=== PATIENT | female | born 1985 | race Caucasian/White ===

== ENCOUNTER 2016-12-04 16:32 | Inpatient (IN) ==
[2016-12-04] MEDS ORDERED: Naloxone 0.4 MG/ML INJ IVP PRN (18:41)
[2016-12-04] MEDS ORDERED: Vancomycin 750 MG in D5% in Water 250 ML IVPB SCH (19:00)
--- NOTE | 2016-12-04 19:03 | Event Note ---
Date of Encounter: 12/04/16 Time of Encounter: 18:57 I examined this patient and my medical decision-making was reviewed with the Resident Physician on 12/04/16. I agree with the documented findings, disposition and treatment plan as described except to the extent set forth below. 31 y/o female with hx of Crohns disease s/p bowel resection on chronic TPN as outpatient brought in as direct admit for intractable nausea and vomiting and abdominal pain. Has been seen in ED 3 times this week including this AM. Blood cx on 11/30 is growing gram positive cocci - not identified yet. Continued to have symptoms after discharge from ED and is now admitted. PMHx, PSHx, Soc hx, Fam hx, meds and allergies reviewed. Exam Alert. Pleasant. Mucus membranes dry Heart regular - slightly tachy Lungs clear Abd soft and diffusely tender. No rebound, rigidity, guarding No edema I/P 1. Intractable nausea and vomiting with abd pain - Phenergan, Benadryl and Dilaudid ordered Fluids for maintenance. 2. Positive blood culture - repeat cx drawn this AM. Will start Vanc pending results 3. Chronic TPN 4. Crohns disease on chronic immunosuppression. Pt admitted inpatient. Due to her chronic illness, immunosuppression and positive blood culture she is at high risk for further infectious complications and decompensation.
[2016-12-04] MEDS: 0.9 % Sodium Chloride 1,000 ML IVC SCH (19:07)
[2016-12-04] MEDS: *HR* HYDROmorphone 2 MG/ML SYRINGE IVP PRN ×3 (19:08→23:22)
--- NOTE | 2016-12-04 19:13 | Internal Med History&Physical ---
<Jose David Hebert - Last Filed: 12/05/16 16:03> Date of Encounter: 12/05/16 Time of Encounter: 19:11 Assessment and Plan (1) Positive blood cultures Current visit: Yes Status: Acute Ms. Baltazar had 1 of 2 blood cultures positive for gram-positive cocci. Cocci were slow growing and had to be sent out to a reference lab for further evaluation. She does have a history of MRSA-positive bacteremia and required IV vancomycin in the past. She currently has a access port for severe Crohn's disease for which she receives therapy once a month. She has had fevers, worsening abdominal pain, increased nausea and vomiting. With her current infusions it puts her at increased risk for bacteremia. Plan: -Admitted to inpatient - Vancomycin started. - Blood cultures were collected in the emergency department this morning, prior to any antibiotic initiation. - Plan to discuss blood culture results with infectious disease on Tuesday. (2) Abdominal pain Current visit: Yes Status: Acute Ms. Baltazar has pretty significant abdominal pain is tender to palpation and light touch. She is on a concoction of Benadryl and promethazine at home. She recently followed up in the outpatient clinic and was prescribed fentanyl patches but had no improvement with patches and return to oral Roxicodone medication. She says that she does vomit up her medications occasionally. Pain severity is a 9-10 out of 10. Plan: - Continue current home medications. - Dilaudid for severe pain every 2 hours when necessary. Qualifiers: Qualified Code(s): R10.84 - Generalized abdominal pain (3) Crohns disease Current visit: No Status: Chronic Known history for Crohn's disease which she has a port and receives Entyvio infusions once a month. She has had poor oral intake and does receive TPN through her port. She follows up with Dr. Mackey from GI. Plan: - Continue pain control during inpatient stay - Monitor by mouth intake and potential restarting TPN during inpatient stay. - Plan to talk to GI on Tuesday. Qualifiers: Gastrointestinal tract location: small and large intestine Qualified Code(s ): K50.819 - Crohn's disease of both small and large intestine with unspecified complications (4) Nausea & vomiting Current visit: No Status: Resolved Symptoms secondary to Crohn's disease. Qualifiers: Vomiting type: unspecified Qualified Code(s): R11.2 - Nausea with vomiting , unspecified Internal Medicine - H&P: HPI Chief complaint: Sick Admitted From: Home Plans for Post Hospital Care: Home History of present illness: Ms. Baltazar is a 31 year old female with known Crohn's disease, chronic abdominal pain secondary to crohns, history of GI bleeding, kidney stones, renal disease, seizures, hypothyroidism was directly admitted to the inpatient unit on 12/04/2016, with positive blood culture for gram-positive cocci in an immunocompromised patient, worsening abdominal pain and cyclical fevers. Ms. Baltazar had been to the emergency department twice in the last week. On November 29 she was sent to the emergency department with cyclical fevers , neck pain, continued nausea vomiting and worsening abdominal pain for concern of meningitis. She did not receive a spinal tap at that time but did have blood cultures drawn for which she had 1 of 2 resulting with a gram-positive cocci. She was called by the emergency department on Tuesday evening and was told to return to the emergency department for further evaluation. At that time she had continuing worsening of her abdominal pain, complaints of frequent tachycardic episodes, recurrence of fevers. She said she went to the emergency department on Tuesday morning and was evaluated but not admitted or started on antibiotics. She denies any pain swelling or erythema at her port site or any abnormal discharge. Her pain did not improve, she felt generally weak and as if her symptoms were worsening. She contacted her primary care physician who directly admitted her to the inpatient unit. She continues to complain of left- sided neck pain that feels deep and worse with neck flexion. She denies any photophobia, blurry vision, loss of sensation, loss of muscle strength, loss of sensation. She rates the abdominal pain as a 9-10 out of 10. She continues to have frequent bowel movements that her mucus-like in nature and without blood. She has had poor oral intake for several months but complains recently she has vomited up almost everything she tries to take orally including pain medications. She does receive TPN through her port. Past Med Surg Social Fam HX - Past Medical History Medical history: arthritis, asthma, GERD, GI bleed, kidney stones, renal disease , seizures, thyroid disease Psychiatric history: no psych history - Past Surgical History Surgical History: appendectomy, cholecystectomy, colectomy, other - Social History Smoking Status: Never smoker Smokeless Tobacco Status: No Alcohol use: none Drug use: none - Family History Grandmother Living Status: Hx Family Cardiac Disorders: Yes Hx Family Respiratory Disorders: Yes Internal Medicine - H&P: Meds Levothyroxine [Synthroid] 75 mcg PO DAILY 08/04/15 [History] Mesalamine [Lialda] 2.4 gm PO DAILY 09/30/15 [History] Promethazine [Phenergan] 25 mg PO Q4-6H PRN 03/12/16 [History] Ondansetron ODT [Zofran ODT] 4 mg SL Q6HR PRN 08/11/16 [History] Albuterol Sulfate [Albuterol Inhaler] 2 puff IH Q6H PRN 09/28/16 [History] OxyCODONE Immed Rel [Roxicodone 15 MG] 15 mg PO Q4H PRN #30 tablet 10/30/16 [Rx] Sennosides/Docusate Sodium [Senna Plus] 2 each PO BID PRN #20 tablet 10/30/16 [ Rx] Potassium Chloride 10 meq PO BIDWM #10 tab.er.prt 11/29/16 [Rx] Pnv95/Ferrous Fumarate/FA [Gnp Vitamins Tablet] 1 each PO DAILY [History] Promethazine HCl [Phenergan] 25 mg IJ BID PRN 12/05/16 [History] Vedolizumab [Entyvio (For Outpatient Infusion)] 300 mg IV Q8W 12/05/16 [History] Allergies Iodinated Contrast Media - Oral and [Iodinated Contrast Media - IV Dye] Allergy (Verified 12/05/16 14:45) Difficulty Breathing ketorolac [From Toradol] Allergy (Verified 12/05/16 14:45) Difficulty Breathing metoprolol [From Lopressor] Allergy (Verified 12/05/16 14:45) Difficulty Breathing morphine Allergy (Verified 12/05/16 14:45) Difficulty Breathing adalimumab [From Humira] Adverse Reaction (Verified 12/05/16 14:45) Seizure All Systems PM: A 10-system review of systems was performed and is negative for pertinent findings except as documented above in the HPI. - Constitutional Constitutional: as per HPI, anorexia, fatigue, fever(s) - EENT Eyes: no blurry vision, no change in vision, no diplopia, no photophobia, no spots in vision Ears: no decreased hearing Nose, mouth and throat: no dental pain, no mouth pain, no sore throat, no throat swelling, no tongue swelling - Cardiovascular Cardiovascular ROS IM: palpitations, no chest pain, no dyspnea Additional comments: Fast rate - Respiratory Respiratory: no dyspnea, no wheezing, no pain on inspiration, no chest congestion - Gastrointestinal Gastrointestinal: abdominal pain, cramping, diarrhea, loose stools, nausea, vomiting, no hematochezia, no melena - Musculoskeletal Musculoskeletal ROS IM: no numbness, no stiffness - Neurological Neurological ROS: no abnormal hearing, no convulsions, no dizziness, no numbness , no paresthesias, no other visual disturbances - Constitutional Vitals: Temp Pulse Resp BP Pulse Ox 98.3 F 99 16 117/91 99 12/04/16 18:41 12/04/16 18:41 12/04/16 18:41 12/04/16 18:41 12/04/16 18:41 Internal Med - H&P Results - Labs CBC & Chem 7: 12/04/16 19:19 12/04/16 19:19 <Saurav Siddiqui - Last Filed: 12/05/16 18:20> Date of Encounter: 12/04/16 Internal Medicine - H&P: HPI History of present illness: Ms. Baltazar is a 31 year old female All Systems PM: A 10-system review of systems was performed and is negative for pertinent findings except as documented above in the HPI. - Constitutional Vitals: Temp Pulse Resp BP Pulse Ox 97.8 F 99 16 115/69 98 12/05/16 07:00 12/05/16 15:00 12/05/16 15:00 12/05/16 15:00 12/05/16 11:00 Internal Med - H&P Results - Labs CBC & Chem 7: 12/05/16 16:35 12/05/16 16:35 Labs: Short CBC 12/04/16 12/05/16 Range/Units 19:19 16:35 WBC 5.1 4.2 L (4.3-11.1) K/mcL Hgb 10.7 L 10.8 L (11.5-15.4) g/dL Hct 33.1 L 33.8 L (35.3-44.9) % Plt Count 274 214 (140-400) K/mcL Neutrophils # 3.1 2.9 (1.6-8.9) K/mcL BMP 12/04/16 12/05/16 19:19 16:35 Sodium 139 137 Potassium 3.6 3.9 Chloride 107 107 Carbon Dioxide 22 21 BUN 13 9 Creatinine 0.77 0.66 Glucose 88 114 H Calcium 9.3 9.2 Liver Function 12/04/16 12/05/16 Range/Units 19:19 16:35 Total Bilirubin 0.4 0.3 (0.2-1.2) mg/dL AST 12 13 (5-34) Units/L ALT 11 10 (0-55) Units/L Alkaline Phosphatase 54 49 (38-126) Units/L Albumin 3.6 3.3 L (3.5-5.0) g/dL Urine 12/05/16 Range/Units 03:00 Urine Color Yellow (Yellow) Urine Clarity Clear (Clear) Urine pH 6.0 (5.0-8.0) pH Units Ur Specific [place] 1.020 (1.010-1.025) Urine Protein Negative (Neg-Trace) mg/dL Urine Glucose (UA) Normal (Normal) mg/dL - Attending Attestation I examined this patient and my medical decision-making was reviewed with the Resident Physician on 12/04/16. I agree with the documented findings, disposition and treatment plan as described except to the extent set forth below. Please see event note of today (12/04/16) for attestation.
[2016-12-04 19:33] LABS: Basophils % 0.4 %; Eosinophils % 0.8 %; Hematocrit 33.1 % (35.3-44.9); Hemoglobin 10.7 g/dL (11.5-15.4); Immature Granulocytes % 0.2 % (0-4); Lymphocytes # 1.5 K/mcL (0.6-4.6); Lymphocytes % 29.4 %; Mean Corpuscular HGB Conc 32.3 g/dL (31.6-35.5); Mean Corpuscular Hemoglobin 26.8 pg (28.0-33.3); Mean Corpuscular Volume 82.8 fL (83.0-100.0); Mean Platelet Volume 10.5 fL (9.4-12.4); Monocytes # 0.5 K/mcL (0.0-1.3); Monocytes % 8.9 %; Neutrophils # 3.1 K/mcL (1.6-8.9); Platelet Count 274 K/mcL (140-400); Red Cell Distribution Width 17.6 % (11.5-14.5); Segmented Neutrophils % 60.3 %
[2016-12-04 19:38] LABS: INR 1.1; Prothrombin Time 11.6 Seconds (9.4-12.1)
[2016-12-04 19:44] LABS: Activated Partial Thrombo Time 66.1 Seconds (26.0-36.0)
[2016-12-04 19:46] LABS: Alanine Aminotransferase 11 Units/L (0-55); Albumin 3.6 g/dL (3.5-5.0); Albumin/Globulin Ratio 1.1 (1.1-2.2); Alkaline Phosphatase 54 Units/L (38-126); Aspartate Amino Transferase 12 Units/L (5-34); BUN/Creatinine Ratio 17 (6-26); Bilirubin,Total 0.4 mg/dL (0.2-1.2); Blood Urea Nitrogen 13 mg/dL (7-20); Calcium 9.3 mg/dL (8.6-10.8); Carbon Dioxide 22 mEq/L (19-29); Chloride 107 mEq/L (98-109); Globulin 3.3 g/dL (2.4-3.5); Glucose 88 mg/dL (70-99); Magnesium 1.7 mg/dL (1.6-2.6); Osmolality,Calculated 288 (280-300); Phosphorous 4.2 mg/dL (2.3-4.7); Potassium 3.6 mEq/L (3.5-4.5); Sodium 139 mEq/L (136-145); Total Protein 6.9 g/dL (6.0-8.3); eGFR For African Americans > 60 (> 60); eGFR For Non-African Americans > 60 (> 60)
[2016-12-04] MEDS: Promethazine 12.5 MG in 0.9 % Sodium Chloride 50 ML IVPB SCH ×2 (20:22→23:30)
[2016-12-04] MEDS: Vancomycin 750 MG in D5% in Water 250 ML IVPB SCH (20:36)
[2016-12-04] MEDS ORDERED: *HR* Promethazine 25 MG/ML VIAL IV PRN (21:12)
[2016-12-04] MEDS ORDERED: *HR* Promethazine 25 MG/ML VIAL IV SCH (21:30)
[2016-12-05] MEDS: *HR* HYDROmorphone 2 MG/ML SYRINGE IVP PRN ×9 (01:57→22:39)
[2016-12-05 03:09] LABS: Bilirubin,Urine Negative (Negative); Blood,Urine Negative (Negative); Clarity,Urine Clear (Clear); Color,Urine Yellow (Yellow); Glucose,Urine (UA) Normal (Normal); Ketones,Urine Negative (Negative); Leukocyte Esterase,Urine Negative (Negative); Nitrite,Urine Negative (Negative); Protein,Urine Negative (Neg-Trace); Urobilinogen,Urine Normal (Normal)
[2016-12-05] MEDS: Promethazine 12.5 MG in 0.9 % Sodium Chloride 50 ML IVPB SCH ×5 (04:18→20:27)
[2016-12-05] MEDS: Vancomycin 750 MG in D5% in Water 250 ML IVPB SCH (08:21)
[2016-12-05] MEDS ORDERED: Aminoglycoside Consult 1 EACH MC ONE (08:45)
--- NOTE | 2016-12-05 08:57 | Internal Med Progress Note ---
<Jose David Hebert - Last Filed: 12/05/16 16:30> Date of Encounter: 12/05/16 Time of Encounter: 08:57 - Assessment and plan (1) Positive blood cultures Current Visit: Yes Status: Acute Assessment and plan: Ms. Baltazar had 1 of 2 blood cultures positive for gram-positive cocci. Cocci were slow growing and had to be sent out to a reference lab for further evaluation. She does have a history of MRSA-positive bacteremia and required IV vancomycin in the past. She currently has a access port for severe Crohn's disease for which she receives therapy once a month. She has had fevers, worsening abdominal pain, increased nausea and vomiting. With her current infusions it puts her at increased risk for bacteremia. Plan: -Vancomycin discontinued to Lacy rash. Last time patient was admitted she had a diffuse rash suspicious for medication rash. - Start Ancef every 8 hours - Plan to discuss blood culture results with infectious disease on Tuesday. (2) Abdominal pain Current Visit: Yes Status: Acute Assessment and plan: Ms. Baltazar has pretty significant abdominal pain is tender to palpation and light touch. She is on a concoction of Benadryl and promethazine at home. She recently followed up in the outpatient clinic and was prescribed fentanyl patches but had no improvement with patches and return to oral Roxicodone medication. She says that she does vomit up her medications occasionally. 12/05/2016: Pain is improved but not resolved, patient is tolerating current regimen. Plan: - Continue current home medications. - Dilaudid for severe pain every 2 hours when necessary. - Addition of GI cocktail Qualifiers: Qualified Code(s): R10.84 - Generalized abdominal pain (3) Crohns disease Current Visit: No Status: Chronic Assessment and plan: Known history for Crohn's disease which she has a port and receives Entyvio infusions once a month. She has had poor oral intake and does receive TPN through her port. She follows up with Dr. Mackey from GI. Plan: - Continue pain control during inpatient stay - Monitor by mouth intake and potential restarting TPN during inpatient stay. - Plan to talk to GI on Tuesday. Qualifiers: Gastrointestinal tract location: small and large intestine Qualified Code(s ): K50.819 - Crohn's disease of both small and large intestine with unspecified complications (4) Nausea & vomiting Current Visit: No Status: Resolved Assessment and plan: Continues to have these symptoms. Worse with by mouth intake. Qualifiers: Vomiting type: unspecified Qualified Code(s): R11.2 - Nausea with vomiting , unspecified (5) Thrush Current Visit: Yes Status: Acute Assessment and plan: Oral thrush identified on examination. She also complains of sore throat. PlanL - Nystatin Rinse and swallow. (6) Tachycardia Current Visit: Yes Status: Acute Assessment and plan: Mrs. Baltazar has had an elevated heart rate roughly around 100 216 is normal sinus rhythm since admission. She denies any changes to her anxiety level. She does have a history of hypothyroidism and takes Synthroid and denies having her TSH checked recently. Plan: - Check TSH -If TSH is abnormal we will check free T4, T3 - Continue ekg monitor. - Subjective Interval history: Mrs. Baltazar has been seen and evaluated patient bedside this morning. She is alert awake oriented in no acute distress and interactive. She complains of a lacy rash that is concerning for drug rash. The rash is not not paretic, and she denies throat swelling, or trouble swelling. She continues to have abdominal pain but says the pain is improved today. She has had dry heaving episodes today without vomiting. She continues to have diarrhea that is mucous filled without blood. She denies any fevers, chills, change in vision or change in mental status. She says that her heart has been racing occasionally at rest. She denies anxiety, or change in pain status. - Constitutional Vitals: Temp Pulse Resp BP Pulse Ox 97.8 F 83 16 98/63 98 12/05/16 07:00 12/05/16 07:00 12/05/16 07:00 12/05/16 07:00 12/05/16 07:00 General appearance: Present: cooperative, A&O X 3, pleasant, no acute distress - Head Head exam: Present: atraumatic, normocephalic - Eye Eye exam: Present: PERRL, conjuntiva pink, sclera anicteric Pupils: Present: PERRL - Neck Neck exam general surgery: Present: supple, trachea midline. Absent: lymphadenopathy - Respiratory Respiratory exam: Present: CTAB. Absent: accessory muscle use, rales, rhonchi, wheezes - Cardiovascular Cardiovascular exam: Present: tachycardia - GI/Abdominal GI/Abdominal exam: Present: normal bowel sounds, soft, tenderness. Absent: distended Additional comments: diffuse tenderness to palpation. - Extremities Exam Extremities exam: Present: warm, radial pulses palpable and symetrical. Absent : calf tenderness, cyanotic, pedal edema - Neurological Exam Neurological exam: Present: alert, CN II-XII intact, oriented X3, no focal deficits. Absent: pronater drift, facial droop, speech deficit - Psychiatric Psychiatric exam: Present: normal affect, normal mood - Skin Skin exam: Present: dry, intact, warm Internal Medicine: Result - Labs CBC & Chem 7: 12/04/16 19:19 12/04/16 19:19 Labs: Short CBC 12/04/16 Range/Units 19:19 WBC 5.1 (4.3-11.1) K/mcL Hgb 10.7 L (11.5-15.4) g/dL Hct 33.1 L (35.3-44.9) % Plt Count 274 (140-400) K/mcL Neutrophils # 3.1 (1.6-8.9) K/mcL BMP 12/04/16 19:19 Sodium 139 Potassium 3.6 Chloride 107 Carbon Dioxide 22 BUN 13 Creatinine 0.77 Glucose 88 Calcium 9.3 Liver Function 12/04/16 Range/Units 19:19 Total Bilirubin 0.4 (0.2-1.2) mg/dL AST 12 (5-34) Units/L ALT 11 (0-55) Units/L Alkaline Phosphatase 54 (38-126) Units/L Albumin 3.6 (3.5-5.0) g/dL Urine 12/05/16 Range/Units 03:00 Urine Color Yellow (Yellow) Urine Clarity Clear (Clear) Urine pH 6.0 (5.0-8.0) pH Units Ur Specific [place] 1.020 (1.010-1.025) Urine Protein Negative (Neg-Trace) mg/dL Urine Glucose (UA) Normal (Normal) mg/dL - ABG Interpretation ABG results: PT/INR, D-dimer PT 11.6 Seconds (9.4-12.1) 12/04/16 19:19 Consult Discharge Plan - Plan Referrals: Michael Gibson DO [Primary Care Provider] - <Saurav Siddiqui - Last Filed: 12/05/16 19:02> Date of Encounter: 12/05/16 - Assessment and plan (1) Crohn disease Current Visit: Yes Status: Acute Assessment and plan: Intractable pain with n/v. On pain control GI consult in AM. Qualifiers: Gastrointestinal tract location: small and large intestine Digestive disease complication type: other complication Qualified Code(s): K50.818 - Crohn's disease of both small and large intestine with other complication (2) Abdominal pain Current Visit: Yes Status: Acute Qualifiers: Abdominal location: generalized Qualified Code(s): R10.84 - Generalized abdominal pain (3) Positive blood cultures Current Visit: Yes Status: Acute (4) Thrush Current Visit: Yes Status: Acute (5) Nausea & vomiting Current Visit: No Status: Acute Qualifiers: Vomiting type: unspecified Vomiting Intractability: non-intractable Qualified Code(s): R11.2 - Nausea with vomiting, unspecified (6) Sinus tachycardia Current Visit: Yes Status: Acute - Constitutional Vitals: Temp Pulse Resp BP Pulse Ox 97.8 F 99 16 115/69 98 12/05/16 07:00 12/05/16 15:00 12/05/16 15:00 12/05/16 15:00 12/05/16 11:00 Internal Medicine: Result - Labs CBC & Chem 7: 12/05/16 16:35 12/05/16 16:35 Labs: Short CBC 12/04/16 12/05/16 Range/Units 19:19 16:35 WBC 5.1 4.2 L (4.3-11.1) K/mcL Hgb 10.7 L 10.8 L (11.5-15.4) g/dL Hct 33.1 L 33.8 L (35.3-44.9) % Plt Count 274 214 (140-400) K/mcL Neutrophils # 3.1 2.9 (1.6-8.9) K/mcL BMP 12/04/16 12/05/16 19:19 16:35 Sodium 139 137 Potassium 3.6 3.9 Chloride 107 107 Carbon Dioxide 22 21 BUN 13 9 Creatinine 0.77 0.66 Glucose 88 114 H Calcium 9.3 9.2 Liver Function 12/04/16 12/05/16 Range/Units 19:19 16:35 Total Bilirubin 0.4 0.3 (0.2-1.2) mg/dL AST 12 13 (5-34) Units/L ALT 11 10 (0-55) Units/L Alkaline Phosphatase 54 49 (38-126) Units/L Albumin 3.6 3.3 L (3.5-5.0) g/dL Urine 12/05/16 Range/Units 03:00 Urine Color Yellow (Yellow) Urine Clarity Clear (Clear) Urine pH 6.0 (5.0-8.0) pH Units Ur Specific [place] 1.020 (1.010-1.025) Urine Protein Negative (Neg-Trace) mg/dL Urine Glucose (UA) Normal (Normal) mg/dL - ABG Interpretation ABG results: PT/INR, D-dimer PT 11.6 Seconds (9.4-12.1) 12/04/16 19:19 - Attending Attestation I examined this patient and my medical decision-making was reviewed with the Resident Physician on 12/05/16. I agree with the documented findings, disposition and treatment plan as described except to the extent set forth below. Ms. Baltazar is currently admitted for intractable nausea, vomiting and abd pain. Positive blood culture still pending. She remains moderate risk due to the potential for continued infection while immunosuppressed. Ms. Baltazar is continuing to have pain and nausea. She is tolerating some PO intake. No fever or new symptoms. No cough. Blood cx still pending though repeat are negative thus far Exam Alert. Comfortable Heart tachy Lungs clear Abd tender I/P 1. Acute Crohns 2. Intractable n/v 3. Abd pain 4. Positive blood cx 5. Sinus tachycardia Further diagnoses and plan as above.
[2016-12-05] MEDS: 0.9 % Sodium Chloride 1,000 ML IVC SCH (09:06)
[2016-12-05] MEDS ORDERED: GI Cocktail 40 ML EACH PO ONE (15:56)
[2016-12-05 16:43] LABS: Basophils % 0.2 %; Eosinophils # 0.2 K/mcL (0.0-0.6); Eosinophils % 5.2 %; Hematocrit 33.8 % (35.3-44.9); Hemoglobin 10.8 g/dL (11.5-15.4); Immature Granulocytes % 0.2 % (0-4); Immature Platelets 2.8 % (1.1-6.1); Lymphocytes # 0.7 K/mcL (0.6-4.6); Lymphocytes % 17.4 %; Mean Corpuscular Hemoglobin 26.9 pg (28.0-33.3); Mean Corpuscular Volume 84.3 fL (83.0-100.0); Mean Platelet Volume 10.4 fL (9.4-12.4); Monocytes # 0.4 K/mcL (0.0-1.3); Monocytes % 8.3 %; Neutrophils # 2.9 K/mcL (1.6-8.9); Platelet Count 214 K/mcL (140-400); Red Blood Count 4.01 M/mcL (3.82-4.97); Red Cell Distribution Width 17.2 % (11.5-14.5); Segmented Neutrophils % 68.7 %
[2016-12-05 16:56] LABS: Alanine Aminotransferase 10 Units/L (0-55); Albumin 3.3 g/dL (3.5-5.0); Albumin/Globulin Ratio 1.1 (1.1-2.2); Alkaline Phosphatase 49 Units/L (38-126); Aspartate Amino Transferase 13 Units/L (5-34); BUN/Creatinine Ratio 14 (6-26); Bilirubin,Total 0.3 mg/dL (0.2-1.2); Blood Urea Nitrogen 9 mg/dL (7-20); Calcium 9.2 mg/dL (8.6-10.8); Carbon Dioxide 21 mEq/L (19-29); Chloride 107 mEq/L (98-109); Glucose 114 mg/dL (70-99); Osmolality,Calculated 284 (280-300); Potassium 3.9 mEq/L (3.5-4.5); Sodium 137 mEq/L (136-145); Total Protein 6.3 g/dL (6.0-8.3); eGFR For African Americans > 60 (> 60); eGFR For Non-African Americans > 60 (> 60)
[2016-12-05] MEDS: ceFAZolin 1,000 MG in D5% in Water (Mini-Bag+) 100 ML IVPB SCH (17:47)
[2016-12-05] MEDS: Nystatin SUSP 5 ML UD.LIQ PO SCH ×2 (17:50→20:26)
[2016-12-06] MEDS: Promethazine 12.5 MG in 0.9 % Sodium Chloride 50 ML IVPB SCH ×7 (00:39→23:53)
[2016-12-06] MEDS: 0.9 % Sodium Chloride 1,000 ML IVC SCH ×2 (00:43→12:24)
[2016-12-06] MEDS: *HR* HYDROmorphone 2 MG/ML SYRINGE IVP PRN ×11 (00:45→23:53)
[2016-12-06] MEDS ORDERED: *HR* HYDROmorphone (PF) 1 MG/ML SYRINGE ONE (05:16)
[2016-12-06] MEDS: ceFAZolin 1,000 MG in D5% in Water (Mini-Bag+) 100 ML IVPB SCH ×2 (05:33→12:24)
[2016-12-06 05:58] LABS: Basophils % 0.2 %; Eosinophils # 0.2 K/mcL (0.0-0.6); Eosinophils % 5.1 %; Hematocrit 31.3 % (35.3-44.9); Hemoglobin 9.8 g/dL (11.5-15.4); Immature Granulocytes % 0.2 % (0-4); Lymphocytes # 0.9 K/mcL (0.6-4.6); Lymphocytes % 21.8 %; Mean Corpuscular HGB Conc 31.3 g/dL (31.6-35.5); Mean Corpuscular Hemoglobin 26.5 pg (28.0-33.3); Mean Corpuscular Volume 84.6 fL (83.0-100.0); Mean Platelet Volume 10.5 fL (9.4-12.4); Monocytes # 0.5 K/mcL (0.0-1.3); Monocytes % 11.4 %; Neutrophils # 2.6 K/mcL (1.6-8.9); Platelet Count 222 K/mcL (140-400); Red Cell Distribution Width 17.1 % (11.5-14.5); Segmented Neutrophils % 61.3 %
[2016-12-06 06:08] LABS: Alanine Aminotransferase 10 Units/L (0-55); Albumin 3.1 g/dL (3.5-5.0); Albumin/Globulin Ratio 1.1 (1.1-2.2); Alkaline Phosphatase 46 Units/L (38-126); Aspartate Amino Transferase 11 Units/L (5-34); BUN/Creatinine Ratio 16 (6-26); Bilirubin,Total 0.2 mg/dL (0.2-1.2); Blood Urea Nitrogen 10 mg/dL (7-20); Calcium 9.2 mg/dL (8.6-10.8); Carbon Dioxide 22 mEq/L (19-29); Chloride 107 mEq/L (98-109); Globulin 2.9 g/dL (2.4-3.5); Glucose 99 mg/dL (70-99); Osmolality,Calculated 283 (280-300); Potassium 4.4 mEq/L (3.5-4.5); Sodium 137 mEq/L (136-145); eGFR For African Americans > 60 (> 60); eGFR For Non-African Americans > 60 (> 60)
[2016-12-06] MEDS: Nystatin SUSP 5 ML UD.LIQ PO SCH ×4 (07:58→21:27)
--- NOTE | 2016-12-06 08:46 | Internal Med Progress Note ---
<Soham Albert - Last Filed: 12/06/16 14:43> Date of Encounter: 12/06/16 Time of Encounter: 08:38 - Assessment and plan (1) Positive blood cultures Current Visit: Yes Status: Acute Assessment and plan: Blood culture on 11/29/16 shows Acinetobacter Species from the CVC, but 12/04/16 with the port was negative. Peripheral Blood cultures have been negative. She does have a history of MRSA-positive bacteremia and required IV vancomycin in the past. She currently has a access port for the past 6 months for severe Crohn's disease for which she receives therapy once a month. She has had fevers , worsening abdominal pain, increased nausea and vomiting. With her current infusions it puts her at increased risk for bacteremia. Plan: -Vancomycin discontinued to Lacy rash. Last time patient was admitted she had a diffuse rash suspicious for medication rash. - Switched from Ancef to Merpenem to cover ancinetobacter. -Infectious disease seeing patient at bedside. Will decide if we need to stop abx and draw blood cultures. (2) Abdominal pain Current Visit: Yes Status: Acute Assessment and plan: Ms. Baltazar has pretty significant abdominal pain is tender to palpation and light touch. She is on a concoction of Benadryl and promethazine at home. She recently followed up in the outpatient clinic and was prescribed fentanyl patches but had no improvement with patches and return to oral Roxicodone medication. She says that she does vomit up her medications occasionally. 12/05/2016: Pain is improved but not resolved, patient is tolerating current regimen. Plan: - Continue current home medications. - Dilaudid for severe pain every 2 hours when necessary. - Addition of GI cocktail -Will continue phenergen through IVPB, not a push. Qualifiers: Abdominal location: generalized Qualified Code(s): R10.84 - Generalized abdominal pain (3) Crohn disease Current Visit: Yes Status: Acute Assessment and plan: Known history for Crohn's disease which she has a port and receives Entyvio infusions once a month. She has had poor oral intake and does receive TPN through her port. She follows up with Dr. Mackey from GI. Plan: - Continue pain control during inpatient stay - Monitor by mouth intake and potential restarting TPN during inpatient stay. - Consider consulting GI tomorrow if pain has not resolved. Qualifiers: Gastrointestinal tract location: small and large intestine Digestive disease complication type: other complication Qualified Code(s): K50.818 - Crohn's disease of both small and large intestine with other complication (4) Nausea & vomiting Current Visit: No Status: Acute Assessment and plan: Continues to have symptoms, worse by mouth Qualifiers: Vomiting type: unspecified Vomiting Intractability: non-intractable Qualified Code(s): R11.2 - Nausea with vomiting, unspecified (5) Thrush Current Visit: Yes Status: Acute Assessment and plan: Oral thrush identified on examination. She also complains of sore throat. PlanL - Nystatin Rinse and swallow. - Time Spent With Patient 25 - 35 minutes - Subjective Interval history: Ms. Baltazar has been seen and evaluated at bedside this morning. She is alert , very pleasant, and in no acute distress. She she no longer has a rash after being switched from vancomycin to ancef. She continues to have abdominal pain which she states is approximately the same as yesterday, and bearable. She continues to have episode of dry heaving, and bring up anthing she tries to eat. he states that her diarrhea is unchanged from yesterday: mucous filled and without blood. he denies any fevers, chills, change in vision or change in mental status. - Constitutional Vitals: Temp Pulse Resp BP Pulse Ox 98.8 F 96 16 106/66 99 12/06/16 07:54 12/06/16 07:54 12/06/16 07:54 12/06/16 07:54 12/06/16 08:14 General appearance: Present: cooperative, A&O X 3, pleasant, no acute distress - Head Head exam: Present: atraumatic, normocephalic - Eye Eye exam: Present: PERRL, conjuntiva pink, sclera anicteric Pupils: Present: PERRL - Neck Neck exam general surgery: Present: supple, trachea midline. Absent: lymphadenopathy - Respiratory Respiratory exam: Present: CTAB. Absent: accessory muscle use, rales, rhonchi, wheezes - Cardiovascular Cardiovascular exam: Present: RRR, +S1, +S2. Absent: diastolic murmur, gallop, rubs, systolic murmur - GI/Abdominal GI/Abdominal exam: Present: hypoactive bowel sounds, normal bowel sounds, soft, tenderness (Diffuse tenderness to palpation, worst in RLQ), no peritoneal signs. Absent: distended - Extremities Exam Extremities exam: Present: warm, radial pulses palpable and symetrical. Absent : calf tenderness, cyanotic, pedal edema - Neurological Exam Neurological exam: Present: oriented X3, no focal deficits. Absent: pronater drift, facial droop, speech deficit - Skin Skin exam: Present: dry, intact Internal Medicine: Result - Labs CBC & Chem 7: 12/06/16 05:40 12/06/16 05:40 Labs: Short CBC 12/05/16 12/06/16 Range/Units 16:35 05:40 WBC 4.2 L 4.3 (4.3-11.1) K/mcL Hgb 10.8 L 9.8 L (11.5-15.4) g/dL Hct 33.8 L 31.3 L (35.3-44.9) % Plt Count 214 222 (140-400) K/mcL Neutrophils # 2.9 2.6 (1.6-8.9) K/mcL BMP 12/05/16 12/06/16 16:35 05:40 Sodium 137 137 Potassium 3.9 4.4 Chloride 107 107 Carbon Dioxide 21 22 BUN 9 10 Creatinine 0.66 0.63 Glucose 114 H 99 Calcium 9.2 9.2 Liver Function 12/05/16 12/06/16 Range/Units 16:35 05:40 Total Bilirubin 0.3 0.2 (0.2-1.2) mg/dL AST 13 11 (5-34) Units/L ALT 10 10 (0-55) Units/L Alkaline Phosphatase 49 46 (38-126) Units/L Albumin 3.3 L 3.1 L (3.5-5.0) g/dL - ABG Interpretation ABG results: PT/INR, D-dimer PT 11.6 Seconds (9.4-12.1) 12/04/16 19:19 Consult Discharge Plan - Plan Referrals: Michael Gibson DO [Primary Care Provider] - <Saurav Siddiqui - Last Filed: 12/06/16 19:14> Date of Encounter: 12/06/16 - Assessment and plan (1) Crohn disease Current Visit: Yes Status: Acute Qualifiers: Gastrointestinal tract location: small and large intestine Digestive disease complication type: other complication Qualified Code(s): K50.818 - Crohn's disease of both small and large intestine with other complication (2) Abdominal pain Current Visit: Yes Status: Acute Qualifiers: Abdominal location: generalized Qualified Code(s): R10.84 - Generalized abdominal pain (3) Positive blood cultures Current Visit: Yes Status: Acute (4) Thrush Current Visit: Yes Status: Acute (5) Nausea & vomiting Current Visit: No Status: Acute Qualifiers: Vomiting type: unspecified Vomiting Intractability: non-intractable Qualified Code(s): R11.2 - Nausea with vomiting, unspecified (6) Sinus tachycardia Current Visit: Yes Status: Acute - Constitutional Vitals: Temp Pulse Resp BP Pulse Ox 97.9 F 98 16 114/80 97 12/06/16 15:34 12/06/16 15:34 12/06/16 15:34 12/06/16 15:34 12/06/16 15:34 Internal Medicine: Result - Labs CBC & Chem 7: 12/06/16 05:40 12/06/16 05:40 Labs: Short CBC 12/06/16 Range/Units 05:40 WBC 4.3 (4.3-11.1) K/mcL Hgb 9.8 L (11.5-15.4) g/dL Hct 31.3 L (35.3-44.9) % Plt Count 222 (140-400) K/mcL Neutrophils # 2.6 (1.6-8.9) K/mcL BMP 12/06/16 05:40 Sodium 137 Potassium 4.4 Chloride 107 Carbon Dioxide 22 BUN 10 Creatinine 0.63 Glucose 99 Calcium 9.2 Liver Function 12/06/16 Range/Units 05:40 Total Bilirubin 0.2 (0.2-1.2) mg/dL AST 11 (5-34) Units/L ALT 10 (0-55) Units/L Alkaline Phosphatase 46 (38-126) Units/L Albumin 3.1 L (3.5-5.0) g/dL - ABG Interpretation ABG results: PT/INR, D-dimer PT 11.6 Seconds (9.4-12.1) 12/04/16 19:19 - Attending Attestation I examined this patient and my medical decision-making was reviewed with the Resident Physician on 12/06/16. I agree with the documented findings, disposition and treatment plan as described except to the extent set forth below. Ms. Baltazar is currently admitted for intractable N/V and abd pain as well as positive blood cx. She remains moderate risk due to potential for worsening infectious symptoms Ms. Baltazar is having pain right now. Questioned about having Phenergan IVP - explained given IVPB most places. No new issues. No fever. Exam Alert. Mod distress in bed Heart tachy and reg Lungs no wheeze Continued abd pain I/P 1. Acute exac Crohns 2. Abd pain, n/V 3. blood cx positive - ID consult Further diagnoses and plan as above.
--- NOTE | 2016-12-06 15:33 | Infectious Disease Consult ---
Date of Encounter: 12/06/16 Time of Encounter: 15:31 Assessment and Plan (1) Positive blood cultures Status: Acute Assessment and plan: Positive cultures from the port on 11/29/16: Culture positive for gram-positive cocci (coag-negative staph) Cultures sent for identification at the outside facility and it came back as Acinetobacter johnsonni Repeat cultures on 12/04/16 no growth to date Patient had no signs of infection and the only SIRS criteria was tachycardia Patient is very high risk for complications of antibiotics specially with acute kidney injury in the past and with the Crohn's disease he were about ulcerative colitis and she really has oral thrush. Based on all of this, I do believe that the cultures were contaminated. I recommend stopping all antibiotics and observing for any signs of infection or any SIRS criteria. Get blood cultures 2 from the port and peripheral if patient has a temperature over 100.4 Fahrenheit Otherwise we'll continue to observe off antibiotics and follow up on blood cultures obtained from 12/04/2016 Discussed with the primary team We'll continue to follow (2) Crohn disease Status: Acute Assessment and plan: Diagnosis in 2000 Status post small bowel resection and partial colectomy in 2003 Reaction to Humira - seizure Currently on mesalamine and Entivio Per GI recommendations Qualifiers: Gastrointestinal tract location: small and large intestine Digestive disease complication type: other complication Qualified Code(s): K50.818 - Crohn's disease of both small and large intestine with other complication (3) Thrush Status: Acute Assessment and plan: Nystatin swish and swallow (4) DEBI (acute kidney injury) Status: Acute Assessment and plan: Resolved (5) Dehydration Status: Acute (6) Vancomycin-induced nephrotoxicity Status: Acute Infectious Disease HPI - Data of Consult Patient: known to practice within the last 3 years Consult date: 12/06/16 Requesting Physician: Saurav Siddiqui DO Primary Care Provider: Michael Gibson DO - Consult Narrative Reason for consult: positive blood cultures History of present illness: Ms. Baltazar is a 31 year old female Patient is a 31-year-old woman admitted to [facility] on 12/04/2016 for positive blood cultures from 11/29/2016. We are consulted on 12/06/2016 to make antibiotic recommendations. Patient is a 31-year-old woman who has an extensive past medical history including Crohns disease diagnosed 15 years ago that had had multiple complications including partial colectomy and small bowel resection back in 2003 due to severe Crohns, has been on multiple medications including mesalamine, mercaptopurine, steroids on and off, Humira once but was stopped due to seizure, and most recently she is on Entivio and mesalamine. Patient was admitted on August 19 with dehydration and Crohns exacerbation. At that time they did a blood culture from peripheral and port and peripheral culture was positive for MRSA. The ports cultures remained negative. Patient was treated with vancomycin and discharged home on prolonged course of vancomycin. While vancomycin patient went into acute renal failure and had a very trough over 100. Vancomycin was stopped and kidney function returned to normal. On 29 November of this year patient received a transfusion of entivio and post infusion she had some headache and neck pain and was sent to the emergency department for evaluation. Blood cultures were obtained at that time from the port and she had gram-positive cocci growing. I called and spoke with lab and they said it was a coagulation-negative staph. The specimen was sent to an outside lab for identification through [facility] and it came back as Acinetobacter Johnsonni. Patient was started on meropenem and we were consulted to evaluate the patient and make further recommendation. Since admission patient has been afebrile, had no leukocytosis, had no tachypnea. The only SIRS criteria that she had was tachycardia which appears to be chronic for her. On further questioning patient denies having any fever prior to admission she denies any URI symptoms she denies any chest pain or shortness of breath. She denies any pain around her port. She denies any worsening abdominal pain from her baseline or any worsening diarrhea. Patient denies any new back pain and denies any joint effusion. CC: Saurav Siddiqui, DO Past Med Surg Social Fam HX - Past Medical History Medical history: arthritis, asthma, GERD, GI bleed, kidney stones, renal disease , seizures, thyroid disease Psychiatric history: no psych history - Past Surgical History Surgical History: appendectomy, cholecystectomy, colectomy, other - Social History Smoking Status: Never smoker Smokeless Tobacco Status: No Alcohol use: none Drug use: none - Family History Grandmother Living Status: Hx Family Cardiac Disorders: Yes Hx Family Respiratory Disorders: Yes Infectious Disease-CN:Meds Levothyroxine [Synthroid] 75 mcg PO DAILY 08/04/15 [History] Mesalamine [Lialda] 2.4 gm PO DAILY 09/30/15 [History] Promethazine [Phenergan] 25 mg PO Q4-6H PRN 03/12/16 [History] Ondansetron ODT [Zofran ODT] 4 mg SL Q6HR PRN 08/11/16 [History] Albuterol Sulfate [Albuterol Inhaler] 2 puff IH Q6H PRN 09/28/16 [History] OxyCODONE Immed Rel [Roxicodone 15 MG] 15 mg PO Q4H PRN #30 tablet 10/30/16 [Rx] Sennosides/Docusate Sodium [Senna Plus] 2 each PO BID PRN #20 tablet 10/30/16 [ Rx] Potassium Chloride 10 meq PO BIDWM #10 tab.er.prt 11/29/16 [Rx] Pnv95/Ferrous Fumarate/FA [Gnp Vitamins Tablet] 1 each PO DAILY [History] Promethazine HCl [Phenergan] 25 mg IJ BID PRN 12/05/16 [History] Vedolizumab [Entyvio (For Outpatient Infusion)] 300 mg IV Q8W 12/05/16 [History] Allergies Iodinated Contrast Media - Oral and [Iodinated Contrast Media - IV Dye] Allergy (Verified 12/05/16 14:45) Difficulty Breathing ketorolac [From Toradol] Allergy (Verified 12/05/16 14:45) Difficulty Breathing metoprolol [From Lopressor] Allergy (Verified 12/05/16 14:45) Difficulty Breathing morphine Allergy (Verified 12/05/16 14:45) Difficulty Breathing adalimumab [From Humira] Adverse Reaction (Verified 12/05/16 14:45) Seizure Review of systems: 10 point review of systems done, negative other for what mentioned in the history of present illness. Exam - Constitutional Vitals: Temp Pulse Resp BP Pulse Ox 98.8 F 108 16 122/75 98 12/06/16 10:58 12/06/16 10:58 12/06/16 10:58 12/06/16 10:58 12/06/16 10:58 General appearance: cooperative, no acute distress, no febrile - Head Head exam: Present: atraumatic, normal inspection - Eye Eye exam: Present: EOMI, PERRL Additional comments: No conjunctival hemorrhage noted - ENT ENT exam: Present: mucous membranes dry - Neck Neck exam: Present: full ROM. Absent: meningismus - Respiratory Respiratory exam: Present: CTAB. Absent: wheezes - Cardiovascular Cardiovascular exam: Present: RRR, +S1, +S2 Additional comments: No murmur appreciated. Chest with port in the left chest. no erythema, no drainage, no tenderness, no signs of infection - GI/Abdominal GI/Abdominal exam: Present: normal bowel sounds, soft Additional comments: Scars from previous surgery noted - Extremities Exam Extremities exam: Present: normal inspection. Absent: pedal edema - Back Exam Additional comments: No spinal tenderness - Skin Skin exam: Present: normal color. Absent: rash Additional comments: No endocarditis stigmata Infectious Disease CN: Results - Labs CBC & Chem 7: 12/06/16 05:40 12/06/16 05:40 Serology: Serology 12/05/16 12/04/16 Range/Units 03:00 22:04 Urine Color Yellow (Yellow) Urine Clarity Clear (Clear) Urine pH 6.0 (5.0-8.0) pH Units Ur Specific [place] 1.020 (1.010-1.025) Urine Protein Negative (Neg-Trace) mg/dL Urine Glucose (UA) Normal (Normal) mg/dL Urine Ketones Negative (Negative) mg/dL Urine Blood Negative (Negative) Urine Nitrite Negative (Negative) Urine Bilirubin Negative (Negative) Urine Urobilinogen Normal (Normal) mg/dL Ur Leukocyte Esterase Negative (Negative) MRSA Surveillance Scrn Positive A (Negative) Consult Discharge Plan - Plan Referrals: Michael Gibson DO [Primary Care Provider] -
[2016-12-06] MEDS ORDERED: Meropenem 1,000 MG in 0.9 % Sodium Chloride Mini Bag 100 ML IVPB SCH (16:00)
[2016-12-06] MEDS: GI Cocktail 40 ML EACH PO PRN (19:16)
[2016-12-07] MEDS: *HR* HYDROmorphone 2 MG/ML SYRINGE IVP PRN ×10 (01:59→22:41)
[2016-12-07] MEDS: 0.9 % Sodium Chloride 1,000 ML IVC SCH ×2 (02:00→15:35)
[2016-12-07] MEDS: Promethazine 12.5 MG in 0.9 % Sodium Chloride 50 ML IVPB SCH ×5 (04:45→22:41)
[2016-12-07 05:48] LABS: Basophils % 0.3 %; Eosinophils # 0.2 K/mcL (0.0-0.6); Eosinophils % 4.9 %; Hematocrit 30.7 % (35.3-44.9); Hemoglobin 9.6 g/dL (11.5-15.4); Immature Granulocytes % 0.3 % (0-4); Lymphocytes # 1.2 K/mcL (0.6-4.6); Lymphocytes % 34.6 %; Mean Corpuscular HGB Conc 31.3 g/dL (31.6-35.5); Mean Corpuscular Hemoglobin 26.5 pg (28.0-33.3); Mean Corpuscular Volume 84.8 fL (83.0-100.0); Mean Platelet Volume 11.3 fL (9.4-12.4); Monocytes # 0.5 K/mcL (0.0-1.3); Monocytes % 15.4 %; Neutrophils # 1.6 K/mcL (1.6-8.9); Platelet Count 232 K/mcL (140-400); Red Blood Count 3.62 M/mcL (3.82-4.97); Red Cell Distribution Width 16.9 % (11.5-14.5); Segmented Neutrophils % 44.5 %
[2016-12-07 06:10] LABS: BUN/Creatinine Ratio 11 (6-26); Blood Urea Nitrogen 7 mg/dL (7-20); Calcium 8.6 mg/dL (8.6-10.8); Carbon Dioxide 21 mEq/L (19-29); Chloride 105 mEq/L (98-109); Glucose 86 mg/dL (70-99); Osmolality,Calculated 279 (280-300); Potassium 4.3 mEq/L (3.5-4.5); Sodium 136 mEq/L (136-145); eGFR For African Americans > 60 (> 60); eGFR For Non-African Americans > 60 (> 60)
[2016-12-07] MEDS: Nystatin SUSP 5 ML UD.LIQ PO SCH ×4 (09:07→20:38)
--- NOTE | 2016-12-07 10:30 | Internal Med Progress Note ---
<Matt Haile - Last Filed: 12/07/16 17:57> Date of Encounter: 12/07/16 Time of Encounter: 17:58 - Constitutional Vitals: Temp Pulse Resp BP Pulse Ox 97.9 F 113 18 125/71 96 12/07/16 15:43 12/07/16 15:43 12/07/16 15:43 12/07/16 15:43 12/07/16 15:43 Internal Medicine: Result - Labs CBC & Chem 7: 12/07/16 05:00 12/07/16 05:00 Labs: Short CBC 12/07/16 Range/Units 05:00 WBC 3.5 L (4.3-11.1) K/mcL Hgb 9.6 L (11.5-15.4) g/dL Hct 30.7 L (35.3-44.9) % Plt Count 232 (140-400) K/mcL Neutrophils # 1.6 (1.6-8.9) K/mcL BMP 12/07/16 05:00 Sodium 136 Potassium 4.3 Chloride 105 Carbon Dioxide 21 BUN 7 Creatinine 0.61 Glucose 86 Calcium 8.6 - ABG Interpretation ABG results: PT/INR, D-dimer PT 11.6 Seconds (9.4-12.1) 12/04/16 19:19 Consult Discharge Plan - Plan Referrals: Michael Gibson DO [Primary Care Provider] - - Attending Attestation I examined this patient and my medical decision-making was reviewed with the CHIEF STATION ENGINEER/PA/Advanced Practice Nurse/Resident Physician. I agree with the documented findings, disposition and treatment plan as described except to the extent set forth below. will follow ID opinion <Soham Albert - Last Filed: 12/07/16 21:59> Date of Encounter: 12/07/16 - Assessment and plan (1) Positive blood cultures Current Visit: Yes Status: Acute Assessment and plan: Blood culture on 11/29/16 shows Acinetobacter Species from the CVC, but 12/04/16 with the port was negative. Peripheral Blood cultures have been negative. She does have a history of MRSA-positive bacteremia and required IV vancomycin in the past. She currently has a access port for the past 6 months for severe Crohn's disease for which she receives therapy once a month. She has had fevers , worsening abdominal pain, increased nausea and vomiting. With her current infusions it puts her at increased risk for bacteremia. -Patient does not appear to have a blood infection. Not febrile or toxic looking Plan: -Infectious disease seeing patient at bedside. -Antibiotics discontinued. Fear of worsening her diarrhea and causing C. difficile -Probable discharge tomorrow (2) Abdominal pain Current Visit: Yes Status: Acute Assessment and plan: Ms. Baltazar has pretty significant abdominal pain is tender to palpation and light touch. She is on a concoction of Benadryl and promethazine at home. She recently followed up in the outpatient clinic and was prescribed fentanyl patches but had no improvement with patches and return to oral Roxicodone medication. She says that she does vomit up her medications occasionally. 12/05/2016: Pain is improved but not resolved, patient is tolerating current regimen. Plan: - Continue current home medications. - Dilaudid changed for severe pain every 4 hours when necessary. Encourage using home medication for pain control for probable discharge tomorrow - Addition of GI cocktail -Will continue phenergen through IVPB, not a push. Qualifiers: Abdominal location: generalized Qualified Code(s): R10.84 - Generalized abdominal pain (3) Crohn disease Current Visit: Yes Status: Acute Assessment and plan: Known history for Crohn's disease which she has a port and receives Entyvio infusions once a month. She has had poor oral intake and does receive TPN through her port. She follows up with Dr. Mackey from GI. Plan: - Continue pain control during inpatient stay - Monitor by mouth intake. TPN held this time because of positive blood culture. Likely a contaminant. Consider resuming tomorrow. Qualifiers: Gastrointestinal tract location: small and large intestine Digestive disease complication type: other complication Qualified Code(s): K50.818 - Crohn's disease of both small and large intestine with other complication (4) Nausea & vomiting Current Visit: No Status: Acute Assessment and plan: -Patient at baseline -Continue Phenergan -Discussed with patient the adverse effects of Phenergan, including permanent tardive dyskinesia. Patient is aware and wishes to continue with therapy Qualifiers: Vomiting type: unspecified Vomiting Intractability: non-intractable Qualified Code(s): R11.2 - Nausea with vomiting, unspecified (5) Thrush Current Visit: Yes Status: Acute Assessment and plan: Oral thrush appears to be improving Plan - Continue Nystatin Rinse and swallow. - Time Spent With Patient 25 - 35 minutes - Subjective Interval history: Ms. Baltazar has been seen and evaluated at bedside this morning. She is alert , and very pleasant and talkative. States that she is having "one of her bad days" from her Crohn's. Admits to slight increase in abdominal pain. Denies any increase in vomiting, nausea diarrhea. However, this is not different from her usual state. Denies any acute changes and currently has no concerns at this time. Discussed with patient that we will need to start decreasing the Dilaudid medication and resume her home medicine prior to discharge. Patient is in agreement and feels like this is necessary as well - Constitutional Vitals: Temp Pulse Resp BP Pulse Ox 97.9 F 98 16 115/65 96 12/07/16 06:49 12/07/16 06:49 12/07/16 06:49 12/07/16 06:49 12/07/16 06:49 General appearance: Present: cooperative, A&O X 3, pleasant, no acute distress - Head Head exam: Present: atraumatic, normocephalic - Respiratory Respiratory exam: Present: CTAB. Absent: accessory muscle use, rales, rhonchi, wheezes - Cardiovascular Cardiovascular exam: Present: RRR, +S1, +S2. Absent: diastolic murmur, gallop, rubs, systolic murmur - GI/Abdominal GI/Abdominal exam: Present: normal bowel sounds, tenderness (Diffuse), no peritoneal signs. Absent: distended, guarding - Neurological Exam Neurological exam: Present: CN II-XII intact, oriented X3, no focal deficits. Absent: facial droop, speech deficit - Psychiatric Psychiatric exam: Present: normal affect, normal mood - Other Additional findings: -Thrush appears to be improving. Internal Medicine: Result - Labs CBC & Chem 7: 12/07/16 05:00 12/07/16 05:00 Labs: Short CBC 12/07/16 Range/Units 05:00 WBC 3.5 L (4.3-11.1) K/mcL Hgb 9.6 L (11.5-15.4) g/dL Hct 30.7 L (35.3-44.9) % Plt Count 232 (140-400) K/mcL Neutrophils # 1.6 (1.6-8.9) K/mcL BMP 12/07/16 05:00 Sodium 136 Potassium 4.3 Chloride 105 Carbon Dioxide 21 BUN 7 Creatinine 0.61 Glucose 86 Calcium 8.6 - ABG Interpretation ABG results: PT/INR, D-dimer PT 11.6 Seconds (9.4-12.1) 12/04/16 19:19
[2016-12-07] MEDS: GI Cocktail 40 ML EACH PO PRN ×2 (11:13→22:42)
--- NOTE | 2016-12-07 12:51 | Infectious Disease Progress No ---
Date of Encounter: 12/07/16 Time of Encounter: 12:48 - Assessment and Plan (1) Positive blood cultures Current Visit: Yes Status: Acute Positive cultures from the port on 11/29/16: Culture positive for gram-positive cocci (coag-negative staph) Cultures sent for identification at the outside facility and it came back as Acinetobacter johnsonni Repeat cultures on 12/04/16 no growth to date Patient had no signs of infection and the only SIRS criteria was tachycardia Patient is very high risk for complications of antibiotics specially with acute kidney injury in the past and with the Crohn's disease he were about ulcerative colitis and she really has oral thrush. Based on all of this, I do believe that the cultures were contaminated. I recommend stopping all antibiotics and observing for any signs of infection or any SIRS criteria. Get blood cultures 2 from the port and peripheral if patient has a temperature over 100.4 Fahrenheit Otherwise we'll continue to observe off antibiotics and follow up on blood cultures obtained from 12/04/2016 D/w lidar technician, may resume TPN (2) Crohn disease Current Visit: Yes Status: Acute Diagnosis in 2000 Status post small bowel resection and partial colectomy in 2003 Reaction to Humira - seizure Currently on mesalamine and Entivio Per GI recommendations Qualifiers: Gastrointestinal tract location: small and large intestine Digestive disease complication type: other complication Qualified Code(s): K50.818 - Crohn's disease of both small and large intestine with other complication (3) Thrush Current Visit: Yes Status: Acute Nystatin swish and swallow (4) DEBI (acute kidney injury) Current Visit: No Status: Acute resolved (5) Dehydration Current Visit: No Status: Acute (6) Vancomycin-induced nephrotoxicity Current Visit: No Status: Acute (7) Leukopenia Current Visit: Yes Status: Acute etiology not clear, reviewed adverse reaction of entyvio and didnt' see leukopenia as one of the side effects patient had significant leukopenia back in September as well (WBC 2.1) consider getting a peripheral smear and maybe consider hematology consult leukpenia does not appear to be due to infection at t his time Qualifiers: Leukopenia type: other Qualified Code(s): D72.818 - Other decreased white blood cell count - Subjective Interval history: patient seen and examined. seems to be doing better clinically. Just finished with showering. Denies any worsening pain. No fevers, no chills, no chest pain no cough no worsening diarrhea. No urinary symptoms Infect Dis PN-Objective Data - Labs CBC & Chem 7: 12/07/16 05:00 12/07/16 05:00 Labs: Laboratory Results - last 24 hr 12/07/16 12/07/16 12/07/16 05:00 05:00 05:00 WBC 3.5 L RBC 3.62 L Hgb 9.6 L Hct 30.7 L MCV 84.8 MCH 26.5 L MCHC 31.3 L RDW 16.9 H Plt Count 232 MPV 11.3 Immature Gran % 0.3 Seg Neutrophils % 44.5 Lymphocytes % 34.6 Monocytes % 15.4 Eosinophils % 4.9 Basophils % 0.3 Neutrophils # 1.6 Lymphocytes # 1.2 Monocytes # 0.5 Eosinophils # 0.2 Basophils # 0.0 APTT 40.1 H Sodium 136 Potassium 4.3 Chloride 105 Carbon Dioxide 21 BUN 7 Creatinine 0.61 Est GFR ( Amer) > 60 Est GFR (Non-Af Amer) > 60 BUN/Creatinine Ratio 11 Glucose 86 Calculated Osmolality 279 L Calcium 8.6 Phosphorus 4.0 Cultures: Serology 12/05/16 12/04/16 Range/Units 03:00 22:04 Urine Color Yellow (Yellow) Urine Clarity Clear (Clear) Urine pH 6.0 (5.0-8.0) pH Units Ur Specific [place] 1.020 (1.010-1.025) Urine Protein Negative (Neg-Trace) mg/dL Urine Glucose (UA) Normal (Normal) mg/dL Urine Ketones Negative (Negative) mg/dL Urine Blood Negative (Negative) Urine Nitrite Negative (Negative) Urine Bilirubin Negative (Negative) Urine Urobilinogen Normal (Normal) mg/dL Ur Leukocyte Esterase Negative (Negative) MRSA Surveillance Scrn Positive A (Negative) Exam - Constitutional Vitals: Temp Pulse Resp BP Pulse Ox 98.1 F 96 16 112/80 96 12/07/16 11:00 12/07/16 11:00 12/07/16 11:00 12/07/16 11:00 12/07/16 11:00 General appearance: no acute distress, no febrile - Head Head exam: Present: atraumatic, normal inspection - Neck Neck exam: Present: full ROM. Absent: meningismus - Respiratory Respiratory exam: Present: CTAB - Cardiovascular Cardiovascular exam: Present: RRR, +S1, +S2 Additional comments: chest port left chest ok with no signs of infection - GI/Abdominal GI/Abdominal exam: Present: normal bowel sounds, soft Consult Discharge Plan - Plan Referrals: Michael Gibson DO [Primary Care Provider] -
[2016-12-07] MEDS ORDERED: Acetaminophen 325 MG TABLET PO PRN (22:58)
[2016-12-08] MEDS: *HR* HYDROmorphone 2 MG/ML SYRINGE IVP PRN ×7 (00:48→21:33)
[2016-12-08] MEDS: Promethazine 12.5 MG in 0.9 % Sodium Chloride 50 ML IVPB SCH ×7 (00:52→23:56)
[2016-12-08] MEDS: 0.9 % Sodium Chloride 1,000 ML IVC SCH ×2 (04:40→17:13)
[2016-12-08 05:16] LABS: Albumin 3.1 g/dL (3.5-5.0); BUN/Creatinine Ratio 13 (6-26); Blood Urea Nitrogen 8 mg/dL (7-20); Calcium 8.7 mg/dL (8.6-10.8); Carbon Dioxide 23 mEq/L (19-29); Chloride 107 mEq/L (98-109); Glucose 81 mg/dL (70-99); Osmolality,Calculated 283 (280-300); Potassium 4.2 mEq/L (3.5-4.5); Sodium 138 mEq/L (136-145); eGFR For African Americans > 60 (> 60); eGFR For Non-African Americans > 60 (> 60)
[2016-12-08] MEDS: Nystatin SUSP 5 ML UD.LIQ PO SCH ×4 (08:01→22:45)
[2016-12-08] MEDS ORDERED: *HR* HYDROmorphone 2 MG/ML SYRINGE IVP PRN ×2 (08:32→09:05)
--- NOTE | 2016-12-08 10:10 | Discharge Summary ---
<RooseveltSoham Ulysses - Last Filed: 12/09/16 13:15> Date of Encounter: 12/09/16 Time of Encounter: 09:00 - Discharge Diagnosis (1) Abdominal pain Priority: Primary Status: Acute Qualifiers: Abdominal location: generalized Qualified Code(s): R10.84 - Generalized abdominal pain (2) Crohn disease Priority: Primary Status: Acute Qualifiers: Gastrointestinal tract location: small and large intestine Digestive disease complication type: other complication Qualified Code(s): K50.818 - Crohn's disease of both small and large intestine with other complication (3) Thrush Priority: Primary Status: Resolved Comments: -will discharge with medication for reoccurrence - Discharge Medications Home Medications: Levothyroxine [Synthroid] 75 mcg PO DAILY 08/04/15 [History] Mesalamine [Lialda] 2.4 gm PO DAILY 09/30/15 [History] Promethazine [Phenergan] 25 mg PO Q4-6H PRN 03/12/16 [History] Ondansetron ODT [Zofran ODT] 4 mg SL Q6HR PRN 08/11/16 [History] Albuterol Sulfate [Albuterol Inhaler] 2 puff IH Q6H PRN 09/28/16 [History] OxyCODONE Immed Rel [Roxicodone 15 MG] 15 mg PO Q4H PRN #30 tablet 10/30/16 [Rx] Sennosides/Docusate Sodium [Senna Plus] 2 each PO BID PRN #20 tablet 10/30/16 [ Rx] Potassium Chloride 10 meq PO BIDWM #10 tab.er.prt 11/29/16 [Rx] Pnv95/Ferrous Fumarate/FA [Gnp Vitamins Tablet] 1 each PO DAILY [History] Promethazine HCl [Phenergan] 25 mg IJ BID PRN 12/05/16 [History] Vedolizumab [Entyvio (For Outpatient Infusion)] 300 mg IV Q8W 12/05/16 [History] Allergies/Adverse Reactions: Allergies Iodinated Contrast Media - Oral and [Iodinated Contrast Media - IV Dye] Allergy (Verified 12/05/16 14:45) Difficulty Breathing ketorolac [From Toradol] Allergy (Verified 12/05/16 14:45) Difficulty Breathing metoprolol [From Lopressor] Allergy (Verified 12/05/16 14:45) Difficulty Breathing morphine Allergy (Verified 12/05/16 14:45) Difficulty Breathing vancomycin Allergy (Verified 12/08/16 15:38) Rash Melyssa rash at beginning of infusion. adalimumab [From Humira] Adverse Reaction (Verified 12/05/16 14:45) Seizure Date of admission: 12/04/16 18:39 Primary care physician: Michael Gibson DO Consults: 12/05/16 17:44 consult to treasury associate [Consult to Nutrition] [CONS] Routine Comment: Consulting Provider: NUTRITION Reason for Dietary Consult: TPN Start and Manage 12/06/16 14:41 Consult to Infectious Diseases [CONS] Routine Consulting Provider: Infectious Disease Crane Reason for Consult: Port with positive Blood culture. Acinetobacter. Call Completed: Yes Discharging clinician: Soham Albert Anticipated date of discharge: 12/09/16 - Patient Status Disposition: Home, Self-Care Condition: Good Functional capacity at discharge: independent ambulation Overall status at discharge: patient is back to baseline - Discharge Instructions Instructions: Parenteral Nutrition (TPN or PPN) (Injection), Dehydration (DC), Dehydration (GEN), Crohn Disease (DC), Crohn Disease (GEN), Malnutrition (DC), Malnutrition (GEN), Parenteral Nutrition (DC), Parenteral Nutrition (GEN), Crohn Disease, Airplane Pilot Photogrammetry (GEN), Dehydration, Airplane Pilot Photogrammetry (GEN) Follow Up With: Michael Gibson DO [Primary Care Provider] - 12/17/16 8:30 am (Patient admitted for N/V/headache and postive blood culture from port. Found to be a contaminate, patient observed for 24-48 hours off antibitoics and discharged home at baseline health. ) Additional Instructions: Please followup with your PCP and GI doctor. If you have new or worsening symptoms please return to the ED. - Diet and Activity Activity: increase activity as tolerated Diet: advance to your usual diet Interval History: Patient has abdominal pain, but feels like she is back to her baseline. Hospital course: Ms. Baltazar is a 31 year old female, [facility] Chrons, admitted for N/V/Headache and positive blood cultures on 12/04/16 and released on 12/09/16. Throughout her hospital course, multiple blood cultures drawn. One of which was positive for gram negative bacteria in her port. She received IV abx on day one and later switched based on sensitivity. Infectious disease consulted and saw patient. [place] like she was not septic, only SIRS criteria was tachcardia, patient non toxic appearing, and the bacteria was a contaminate. patient monitored for 24- 48hours off antibiotics. Patient complaining of worsening abdominal pain that was diffused that she described as one of her flares from Chrons. She was placed on pain medication prn. Patient regularly requested and had relief of symptoms. Prior to discharge , patient switched from IV dilaudid to her oral medication regimen. Patient tolerated the change and feels like she is at her baseline and can return home. - Time Spent with Patient Total time spent providing and/or coordinating discharge services: Greater than 30 minutes - Constitutional Vitals: Temp Pulse Resp BP Pulse Ox 97.8 F 102 16 116/68 97 12/08/16 08:09 12/08/16 08:09 12/08/16 08:09 12/08/16 08:09 12/08/16 08:09 General appearance: Present: cooperative, A&O X 3, pleasant, no acute distress - Head Head exam: Present: atraumatic, normocephalic - Eye Eye exam: Present: PERRL, conjuntiva pink, sclera anicteric Pupils: Present: PERRL - Respiratory Respiratory exam: Present: CTAB. Absent: accessory muscle use, rales, rhonchi, wheezes - Cardiovascular Cardiovascular exam: Present: RRR, +S1, +S2. Absent: diastolic murmur, gallop, rubs, systolic murmur - GI/Abdominal GI/Abdominal exam: Present: normal bowel sounds, soft, tenderness (at her baseline ), no peritoneal signs. Absent: distended - Neurological Exam Neurological exam: Present: CN II-XII intact, oriented X3, no focal deficits. Absent: pronater drift, facial droop, speech deficit - Skin Skin exam: Present: dry, intact <Lazara,Matt P - Last Filed: 12/09/16 18:18> Date of Encounter: 12/09/16 Date of admission: 12/04/16 18:39 Primary care physician: Michael Gibson DO Consults: 12/05/16 17:44 consult to treasury associate [Consult to Nutrition] [CONS] Routine Comment: Consulting Provider: NUTRITION Reason for Dietary Consult: TPN Start and Manage 12/06/16 14:41 Consult to Infectious Diseases [CONS] Routine Consulting Provider: Infectious Disease Crane Reason for Consult: Port with positive Blood culture. Acinetobacter. Call Completed: Yes Hospital course: Ms. Baltazar is a 31 year old female - Time Spent with Patient Total time spent providing and/or coordinating discharge services: - Constitutional Vitals: Temp Pulse Resp BP Pulse Ox 98.2 F 100 16 120/73 97 12/08/16 15:19 12/08/16 15:19 12/08/16 15:19 12/08/16 15:19 12/08/16 15:19 - Attending Attestation I examined this patient and my medical decision-making was reviewed with the FULL TIME STAFF INTERPRETER/PA/Advanced Practice Nurse/Resident Physician. I agree with the documented findings, disposition and treatment plan as described except to the extent set forth below. outpatient follow up with ANGLESM[facility] HELPER
--- NOTE | 2016-12-08 13:52 | Infectious Disease Progress No ---
Date of Encounter: 12/08/16 Time of Encounter: 13:50 - Assessment and Plan (1) Positive blood cultures Current Visit: Yes Status: Acute Positive cultures from the port on 11/29/16: Culture positive for gram-positive cocci (coag-negative staph) Cultures sent for identification at the outside facility and it came back as Acinetobacter johnsonni Repeat cultures on 12/04/16 no growth to date Patient had no signs of infection and the only SIRS criteria was tachycardia Patient is very high risk for complications of antibiotics specially with acute kidney injury in the past and with the Crohn's disease he were about ulcerative colitis and she really has oral thrush. Based on all of this, I do believe that the cultures were contaminated. I recommend stopping all antibiotics and observing for any signs of infection or any SIRS criteria. Get blood cultures 2 from the port and peripheral if patient has a temperature over 100.4 Fahrenheit Otherwise we'll continue to observe off antibiotics and follow up on blood cultures obtained from 12/04/2016 (negative 4 days) D/w supervisor cook house, may resume TPN I believe the patient has no infection at this time based on the clinical picture, we will sign off. Please let us know if we could be of any assistance in the future. (2) Crohn disease Current Visit: Yes Status: Acute Diagnosis in 2000 Status post small bowel resection and partial colectomy in 2003 Reaction to Humira - seizure Currently on mesalamine and Entivio Per GI recommendations Qualifiers: Gastrointestinal tract location: small and large intestine Digestive disease complication type: other complication Qualified Code(s): K50.818 - Crohn's disease of both small and large intestine with other complication (3) Thrush Current Visit: Yes Status: Acute Nystatin swish and swallow (4) DEBI (acute kidney injury) Current Visit: No Status: Acute resolved (5) Dehydration Current Visit: No Status: Acute (6) Vancomycin-induced nephrotoxicity Current Visit: No Status: Acute (7) Leukopenia Current Visit: Yes Status: Acute etiology not clear, reviewed adverse reaction of entyvio and didnt' see leukopenia as one of the side effects patient had significant leukopenia back in September as well (WBC 2.1) consider getting a peripheral smear and maybe consider hematology consult leukpenia does not appear to be due to infection at t his time Qualifiers: Leukopenia type: other Qualified Code(s): D72.818 - Other decreased white blood cell count - Subjective Interval history: patient seen and examined. Complaining of abdominal pain. States she had some vaginal bleeding. States that it's time for her period yet. Still no fever no chills. Port nontender and seems to be working okay. Infect Dis PN-Objective Data - Labs CBC & Chem 7: 12/07/16 05:00 12/08/16 04:45 Labs: Laboratory Results - last 24 hr 12/08/16 12/08/16 04:45 04:45 APTT 43.5 H Sodium 138 Potassium 4.2 Chloride 107 Carbon Dioxide 23 BUN 8 Creatinine 0.62 Est GFR ( Amer) > 60 Est GFR (Non-Af Amer) > 60 BUN/Creatinine Ratio 13 Glucose 81 Calculated Osmolality 283 Calcium 8.7 Albumin 3.1 L Cultures: Cultures 12/06/16 18:40 Blood Culture - Preliminary Port System No growth. Serology 12/05/16 12/04/16 Range/Units 03:00 22:04 Urine Color Yellow (Yellow) Urine Clarity Clear (Clear) Urine pH 6.0 (5.0-8.0) pH Units Ur Specific [place] 1.020 (1.010-1.025) Urine Protein Negative (Neg-Trace) mg/dL Urine Glucose (UA) Normal (Normal) mg/dL Urine Ketones Negative (Negative) mg/dL Urine Blood Negative (Negative) Urine Nitrite Negative (Negative) Urine Bilirubin Negative (Negative) Urine Urobilinogen Normal (Normal) mg/dL Ur Leukocyte Esterase Negative (Negative) MRSA Surveillance Scrn Positive A (Negative) Exam - Constitutional Vitals: Temp Pulse Resp BP Pulse Ox 97.8 F 102 16 116/68 97 12/08/16 08:09 12/08/16 08:09 12/08/16 08:09 12/08/16 08:09 12/08/16 09:00 General appearance: cooperative, no acute distress - Respiratory Respiratory exam: Present: CTAB - Cardiovascular Cardiovascular exam: Present: RRR Additional comments: Port left chest with no erythema no drainage no signs of infection - Extremities Exam Extremities exam: Present: full ROM, normal inspection Consult Discharge Plan - Plan Referrals: Michael Gibson DO [Primary Care Provider] -
[2016-12-08] MEDS: GI Cocktail 40 ML EACH PO PRN (14:17)
[2016-12-08] MEDS: *HR* OxyCODONE Immed Rel 15 MG TABLET PO PRN ×2 (19:45→23:56)
[2016-12-09] MEDS: *HR* OxyCODONE Immed Rel 15 MG TABLET PO PRN ×2 (04:09→12:48)
[2016-12-09] MEDS: Promethazine 12.5 MG in 0.9 % Sodium Chloride 50 ML IVPB SCH ×3 (04:10→12:48)
[2016-12-09] MEDS: 0.9 % Sodium Chloride 1,000 ML IVC SCH (05:44)
[2016-12-09 07:00] VITALS: BP 96/59
--- NOTE | 2016-12-09 10:35 | Event Note ---
<Soham Albert - Last Filed: 12/09/16 14:48> Date of Encounter: 12/09/16 Time of Encounter: 10:31 patient medically cleared yesterday. Adding a followup note prior to discharge Patient states that she is back to her baseline. Feels comfortable going home. Is still having abdominal pain, no nausea or vomiting. She has Chrons, and the abdominal pain is her usual state. Physical exam showed diffused abdominal tenderness, no peritoneal signs. Patient is resting comfortably in bed and smiling. Will discharge today. Home health ordered for TPN of L sided port. Patient has narcotic scripts, no refills needed. Patient has close followup with PCP and GI at [place]. <Matt Haile - Last Filed: 12/09/16 18:18> Date of Encounter: 12/09/16 I examined this patient and my medical decision-making was reviewed with the HYDROELECTRIC PLANT ELECTRICIAN/PA/Advanced Practice Nurse/Resident Physician. I agree with the documented findings, disposition and treatment plan as described except to the extent set forth below.
[2016-12-09] MEDS: Nystatin SUSP 5 ML UD.LIQ PO SCH ×2 (10:37→12:48)
--- NOTE | 2016-12-09 14:46 | Physician Discharge Referral ---
<RooseveltSoham Ulysses - Last Filed: 12/09/16 14:44> Home Health/Hosp Referral Info Transfer to: Home Health Provider in Charge Post Discharge: PCP - Diagnosis (1) Abdominal pain Priority: Primary Status: Acute (2) Crohn disease Priority: Primary Status: Acute (3) Thrush Priority: Primary Status: Resolved (4) Port catheter in place Priority: Primary (L sided. Placed >3weeks ago.) Status: Acute - Respiratory Orders None Smoking Cessation: Smoking cessation has been advised. For more information, call the [place] Quit Line at 0-080-CQIX-NOW. - Dressing/Wound Care Site: L Port cath for TPN. - Diet/Nutrition Diet/Nutrition Orders: Regular - Activity Activity Orders: Up ad thu - Services Needed Following services are medically necessary services: Home Health Aide, Home Infusion (TPN) - Transfer Medications Home Medications: Levothyroxine [Synthroid] 75 mcg PO DAILY 08/04/15 [History] Mesalamine [Lialda] 2.4 gm PO DAILY 09/30/15 [History] Promethazine [Phenergan] 25 mg PO Q4-6H PRN 03/12/16 [History] Ondansetron ODT [Zofran ODT] 4 mg SL Q6HR PRN 08/11/16 [History] Albuterol Sulfate [Albuterol Inhaler] 2 puff IH Q6H PRN 09/28/16 [History] OxyCODONE Immed Rel [Roxicodone 15 MG] 15 mg PO Q4H PRN #30 tablet 10/30/16 [Rx] Sennosides/Docusate Sodium [Senna Plus] 2 each PO BID PRN #20 tablet 10/30/16 [ Rx] Potassium Chloride 10 meq PO BIDWM #10 tab.er.prt 11/29/16 [Rx] Pnv95/Ferrous Fumarate/FA [Gnp Vitamins Tablet] 1 each PO DAILY [History] Promethazine HCl [Phenergan] 25 mg IJ BID PRN 12/05/16 [History] Vedolizumab [Entyvio (For Outpatient Infusion)] 300 mg IV Q8W 12/05/16 [History] Allergies/Adverse Reactions: Allergies Iodinated Contrast Media - Oral and [Iodinated Contrast Media - IV Dye] Allergy (Verified 12/05/16 14:45) Difficulty Breathing ketorolac [From Toradol] Allergy (Verified 12/05/16 14:45) Difficulty Breathing metoprolol [From Lopressor] Allergy (Verified 12/05/16 14:45) Difficulty Breathing morphine Allergy (Verified 12/05/16 14:45) Difficulty Breathing vancomycin Allergy (Verified 12/08/16 15:38) Rash Melyssa rash at beginning of infusion. adalimumab [From Humira] Adverse Reaction (Verified 12/05/16 14:45) Seizure Certification: Further, I certify that my clinical findings support that this patient is homebound (i.e. absences from home require considerable and taxing effort and are for medical reasons or mosque services or infrequently or short duration when for other reasons) because: Homebound Reason: Leaving home requires considerable and taxing effort due to condition Attestation: My signature below is to certify that this patient is under my care and that I, or nurse practitioner, or a physician's anesthetic assistant working with me, has a face-to -face encounter with this patient. <Matt Haile P - Last Filed: 12/09/16 18:19> - Respiratory Orders Smoking Cessation: Smoking cessation has been advised. For more information, call the [place] Tobacco Quit Line at 7-261-XAXD-NOW. Certification: Further, I certify that my clinical findings support that this patient is homebound (i.e. absences from home require considerable and taxing effort and are for medical reasons or mosque services or infrequently or short duration when for other reasons) because: Attestation: My signature below is to certify that this patient is under my care and that I, or nurse practitioner, or a physician's anesthetic assistant working with me, has a face-to -face encounter with this patient.
== END 2016-12-09 16:23 | disposition home or self-care (01) | DRG 245 ==
LOC: 2NENU → SUATTDRO 18:39
PROVIDERS: ADMIT Internal Medicine; ATTEND Internal Medicine

== ENCOUNTER 2016-12-22 10:32 | Inpatient (IN) ==
[2016-12-22] MEDS ORDERED: 0.9 % Sodium Chloride 1,000 ML IVC ONE (11:10)
--- NOTE | 2016-12-22 11:18 | Emergency Department Note ---
Disposition Clinical Impression: Acute Crohn's disease Qualifiers: Digestive disease complication type: unspecified complication Qualified Code(s) : K50.919 - Crohn's disease, unspecified, with unspecified complications Abdominal pain Qualifiers: Abdominal location: unspecified location Qualified Code(s): R10.9 - Unspecified abdominal pain Nausea & vomiting Qualifiers: Vomiting type: unspecified Vomiting Intractability: unspecified Qualified Code( s): R11.2 - Nausea with vomiting, unspecified Disposition: Admitted As Inpatient Condition: Good Referrals: Jose David Hebert DO [Primary Care Provider] - Forms: Work/School Release, ED Satisfaction Letter Time of Disposition: 13:58 Abdominal Pain HPI - General Chief Complaint: ED Abdominal Pain Stated Complaint: Abdominal pain Time Seen by Provider: 12/22/16 10:49 Source: patient Mode of arrival: ambulatory Limitations: no limitations Nursing Notes Reviewed: Yes Vital Signs Reviewed: Yes - History of Present Illness HPI Narrative: 31-year-old female with a history of Crohn's disease presents to the ED for increased abdominal pain and nausea vomiting. Patient has had these symptoms for the past several days. She was evaluated this morning was planned to be admitted for intractable pain and vomiting, however, wished to be discharged home as she had a scheduled treatment for Crohn's this morning. However due to her symptoms and a reported low white blood cell count she was unable to get her treatment, Entyvio. She has had these treatments in the past with Dr. Mackey, this would be her 3rd treatment, first on Nov.10. Denies any fevers, cough, shortness of breath. Since August gets TPN for her nutrition. Labs and CT reviewed from earlier today. Reports up to 6 episodes of vomiting since this morning. Unable to keep pain medications down. Pain Scale: 7 - Related Data Home Medications Medication Instructions Recorded Confirmed Levothyroxine [Synthroid] 75 mcg PO DAILY 08/04/15 12/05/16 Mesalamine [Lialda] 2.4 gm PO DAILY 09/30/15 12/05/16 Promethazine [Phenergan] 25 mg PO Q4-6H PRN 03/12/16 12/05/16 Ondansetron ODT [Zofran ODT] 4 mg SL Q6HR PRN 08/11/16 12/05/16 Albuterol Sulfate [Albuterol 2 puff IH Q6H PRN 09/28/16 12/05/16 Inhaler] Pnv95/Ferrous Fumarate/FA [Gnp 1 each PO DAILY 12/05/16 12/05/16 Vitamins Tablet] Promethazine HCl [Phenergan] 25 mg IJ BID PRN 12/05/16 12/05/16 Vedolizumab [Entyvio (For 300 mg IV Q8W 12/05/16 12/05/16 Outpatient Infusion)] Previous Rx's Medication Instructions Recorded OxyCODONE Immed Rel [Roxicodone 15 15 mg PO Q4H PRN #30 tablet 10/30/16 MG] Sennosides/Docusate Sodium [Senna 2 each PO BID PRN #20 tablet 10/30/16 Plus] Potassium Chloride 10 meq PO BIDWM #10 tab.er.prt 11/29/16 Ciprofloxacin HCl [Cipro] 500 mg PO BID #20 tablet 12/22/16 MetroNIDAZOLE [Flagyl] 500 mg PO TID #30 tablet 12/22/16 PredniSONE 40 mg PO DAILY #7 tablet 12/22/16 Allergies Allergy/AdvReac Type Severity Reaction Status Date / Time Iodinated Contrast Media - Allergy Difficulty Verified 12/22/16 10:39 Oral and Breathing [Iodinated Contrast Media - IV Dye] ketorolac [From Toradol] Allergy Difficulty Verified 12/22/16 10:39 Breathing metoprolol [From Lopressor] Allergy Difficulty Verified 12/22/16 10:39 Breathing morphine Allergy Difficulty Verified 12/22/16 10:39 Breathing vancomycin Allergy Rash Verified 12/22/16 10:39 adalimumab [From Humira] AdvReac Seizure Verified 12/22/16 10:39 All systems ED: reviewed and negative except as stated. Constitutional: Denies: fever, chills Cardiovascular: Denies: chest pain, palpitations Respiratory: Denies: cough, dyspnea Gastrointestinal: Reports: abdominal pain, nausea, vomiting. 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 Psychiatric history: Reports: no psych history - Social History Smoking status: Never smoker Alcohol use: Reports: none Drug use: Reports: none Physical Exam - General Limitations: no limitations General appearance: alert, in no apparent distress - Head Head exam: atraumatic, normocephalic, normal inspection - Eye Eye exam: Present: normal appearance, PERRL, EOMI - ENT ENT exam: normal exam, normal oropharynx, mucous membranes moist - Neck Neck exam: Present: normal inspection, full ROM, trachea midline - Chest Chest inspection: Present: normal inspection, symmetric chest wall rise - Respiratory Respiratory exam: Present: normal lung sounds bilaterally - Cardiovascular Cardiovascular exam: Present: regular rate, normal rhythm, normal heart sounds - Abdominal Exam Abdominal exam: Present: soft, tenderness, guarding (voluntary), hyperactive bowel sounds. Absent: distention, rebound, rigidity Abdominal tenderness: Present: diffuse - Extremities Exam Extremities exam: Present: normal inspection, full ROM, normal capillary refill. Absent: tenderness, pedal edema, calf tenderness - Neurological Exam Neurological exam: Present: alert, oriented X3 - Skin Skin exam: Present: warm, dry, intact, normal color. Absent: rash, cyanosis Course Course Narrative: 31-year-old female with known Crohn's disease presents RAJ for several days of uncontrollable nausea, vomiting, abdominal pain. History of multiple admissions for similar symptoms. She was evaluated this morning for similar symptoms and has continued vomiting. She was scheduled for a immunosuppressive treatment for Crohn's this morning however due to her symptoms was told that she cannot get it today. On presentation patient is in some mild distress however was ambulatory to the room. She has afebrile. Vitals are stable. She appears well hydrated. Abdomen is soft however diffusely tender with voluntary guarding. She reportedly got multiple doses of IV Dilaudid during her initial visit this morning. Will not redraw labs this morning or reimage. We will give her IV fluids, 1 mg Dilaudid and Benadryl. We will talk to Dr. Mackey regarding her treatments. - Reevaluation(s) Reevaluation #1: Spoke with Dr. Mackey, he reviewed her labs and states she should be able to get her Entyvio treatment once discharged. Have her check in with Rubina, bed management. Patient aware of plan and agreeable. Time: 12:30 Reevaluation #2: Informed that she cannot get the infusion today. Rescheduled for 1000 tomorrow. She reportedly has vomited once here in the ED. Requesting more IV medications. Will give her a dose of home oxycodone 15 mg and re-evaluate for possible discharge home. Patient feels reluctant but agrees with plan. Time: 13:30 Reevaluation #3: Patient refused to take medications as she states she can just take it at home but would prefer not to vomit on the way home. Would like to get more IV medications and admitted for treatment. Continues to endorse pain and nausea. Will contact her PCP Dr. Hebert which she reports will direct admit her like in the past. Impression for intractible nausea/vomiting/pain, and abdominal pain and acute crohn Time: 14:02 - Consultations Consultation #1: Spoke with sobeida Ramirez to admit for acute exacerbation of Crohn and nausea/ vomiting with uncontrolled pain Time: 14:24 Vital Signs Temperature 98.2 F 12/22/16 10:39 Pulse Rate 95 12/22/16 10:39 Respiratory Rate 18 12/22/16 10:39 Blood Pressure 116/75 12/22/16 10:39 O2 Sat by Pulse Oximetry 100 12/22/16 10:39 Temperature 98.2 F 12/22/16 10:39 Pulse Rate 81 12/22/16 14:10 Respiratory Rate 14 12/22/16 14:10 Blood Pressure 117/67 12/22/16 14:10 O2 Sat by Pulse Oximetry 99 12/22/16 14:10 Oxygen Delivery Oxygen Delivery Room Air Abdominal Pain - Medical Records Medical records reviewed: Yes I reviewed the patient's medical records. - Lab Data Lab results reviewed: Yes I reviewed the patient's lab results. - Radiology Data Radiology results reviewed: Yes I reviewed the patient's radiology results.
--- NOTE | 2016-12-22 11:20 | Emergency Department Note ---
Disposition Clinical Impression: Acute Crohn's disease, Abdominal pain, Nausea & vomiting Disposition: Admitted As Inpatient Condition: Good General Adult HPI - General Chief complaint: ED Abdominal Pain Stated complaint: Abdominal pain Time Seen by Provider: 12/22/16 10:49 Source: patient Mode of arrival: ambulatory Limitations: no limitations Nursing Notes Reviewed: Yes Vital Signs Reviewed: Yes - History of Present Illness Pain Scale: 7 - Related Data Home Medications Medication Instructions Recorded Confirmed Levothyroxine [Synthroid] 75 mcg PO DAILY 08/04/15 12/22/16 Mesalamine [Lialda] 2.4 gm PO DAILY 09/30/15 12/22/16 Ondansetron ODT [Zofran ODT] 4 mg SL Q6HR PRN 08/11/16 12/22/16 Albuterol Sulfate [Albuterol 2 puff IH Q6H PRN 09/28/16 12/22/16 Inhaler] Pnv95/Ferrous Fumarate/FA [Gnp 1 tab PO DAILY 12/05/16 12/22/16 Vitamins Tablet] Promethazine HCl [Phenergan] 25 mg IJ BID PRN 12/05/16 12/22/16 Vedolizumab [Entyvio (For 300 mg IV Q8W 12/05/16 12/22/16 Outpatient Infusion)] Previous Rx's Medication Instructions Recorded OxyCODONE Immed Rel [Roxicodone 15 15 mg PO Q4H PRN #30 tablet 10/30/16 MG] Allergies Allergy/AdvReac Type Severity Reaction Status Date / Time Iodinated Contrast Media - Allergy Difficulty Verified 12/22/16 10:39 Oral and Breathing [Iodinated Contrast Media - IV Dye] ketorolac [From Toradol] Allergy Difficulty Verified 12/22/16 10:39 Breathing metoprolol [From Lopressor] Allergy Difficulty Verified 12/22/16 10:39 Breathing morphine Allergy Difficulty Verified 12/22/16 10:39 Breathing vancomycin Allergy Rash Verified 12/22/16 10:39 adalimumab [From Humira] AdvReac Seizure Verified 12/22/16 10:39 Past Medical History - Past Medical History Medical history: Reports: arthritis, asthma, GERD, GI bleed, kidney stones, renal disease, seizures, thyroid disease Surgical history: Reports: appendectomy, cholecystectomy, colectomy, other Psychiatric history: Reports: no psych 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 - Social History Smoking Status: Never smoker Smokeless Tobacco Status: No Alcohol use: Reports: none Drug use: Reports: none Physical Exam - General Limitations: no limitations General appearance: alert, in no apparent distress Course Vital Signs Temperature 98.2 F 12/22/16 10:39 Pulse Rate 95 12/22/16 10:39 Respiratory Rate 18 12/22/16 10:39 Blood Pressure 116/75 12/22/16 10:39 O2 Sat by Pulse Oximetry 100 12/22/16 10:39 Temperature 98.6 F 12/22/16 15:28 Pulse Rate 85 12/22/16 15:28 Respiratory Rate 14 12/22/16 15:28 Blood Pressure 126/80 12/22/16 15:28 O2 Sat by Pulse Oximetry 99 12/22/16 15:28 Oxygen Delivery Oxygen Delivery Room Air Medical Decision Making - MDM Narrative Medical decision making narrative: I examined this patient and my medical decision-making was reviewed with the COMBINATION MACHINE TENDER/PA/Advanced Practice Nurse/Resident Physician. I agree with the documented findings, disposition and treatment plan as described except to the extent set forth below. Patient was seen today by Dr. Ortiz and myself, I agree with his evaluation and management plan, supervising care the [place]. Patient has a history of Crohn's disease was seen last night head CT and a workup which was fairly unremarkable. She still having some pain in the left lower quadrant regular fluids and pain medications in and speak with Dr. Olivo who is her GI physician. She is in agreement with this plan. Since her labs are done at 5:00 this morning and do not think we need to repeat anything. 1120 hrs.: Spoke with Dr. Scott. He reviewed her labs. He says the go ahead with the fluids and pain medications and then see if we can get her to the transfusion center and then they can disposition her from there. 1305 hrs.: Patient's fluids ran she still feeling nauseous has not vomited here. She says she feels like she needs admitted. We will speak with the hospitalist service her labs from this morning looked good. We will see if they think she needs to come into the hospital course RIB disposition home. They could not do her infusion today. Then at 10:00 appointment for her tomorrow morning. 1315 hrs: paging internal medicine resident 1350 hrs.: Hospitalists is agreed to admit the patient.
[2016-12-22] MEDS ORDERED: *HR* HYDROmorphone (PF) 1 MG/ML SYRINGE IVP ONE ×2 (11:27→13:59)
[2016-12-22] MEDS ORDERED: Ondansetron 4 MG/2 ML VIAL IV ONE (11:53)
[2016-12-22] MEDS ORDERED: *HR* OxyCODONE Immed Rel 5 MG TABLET PO ONE ×2 (12:38)
[2016-12-22] MEDS ORDERED: Ondansetron 4 MG/2 ML VIAL IVP PRN (15:31)
[2016-12-22] MEDS ORDERED: Naloxone 0.4 MG/ML INJ IVP PRN ×2 (15:31→17:50)
[2016-12-22] MEDS ORDERED: Acetaminophen 325 MG TABLET PO PRN (15:31)
[2016-12-22] MEDS ORDERED: *HR* OxyCODONE Immed Rel 5 MG TABLET PO PRN (15:31)
[2016-12-22] MEDS ORDERED: *HR* HYDROmorphone (PF) 1 MG/ML SYRINGE IVP PRN (15:31)
[2016-12-22] MEDS: 0.9 % Sodium Chloride w KCl 20 MEQ/1,000 ML MLS IVC SCH (16:33)
[2016-12-22] MEDS ORDERED: Albuterol 2.5 MG/3 ML NEBULIZER IH PRN (17:49)
--- NOTE | 2016-12-22 17:55 | Internal Med History&Physical ---
Date of Encounter: 12/22/16 Time of Encounter: 17:00 Internal Medicine - H&P: HPI Chief complaint: Abdominal pain, nausea, vomiting x months, worse the past couple of days Admitted From: Emergency Dept Plans for Post Hospital Care: Home History of present illness: Ms. Baltazar is 31-year-old female with a history of significant for Crohn's disease on DMARDs presents with worsening of chronic abdominal pain, associated with nausea and vomiting over the past couple of days. She was evaluated in the arlier hours of today in the ED but requested she be discharged, returning because symptoms are over burdening. She was unable to get her 3rd dose of Entyvio because she had leurcopenia. She denies fever, chills or rigors. No reports chronicblood-streaked stools, inconsistent tenesmus, intermittent diarrhea. no urinary or respiratory symptoms. She reports she has been able to maintain her weight. She has been getting TPN via a mediport since August 2016 for nutritional supplementation. There was a consideration of plan to send her to the Infusion Center today for administration of Entyvio, but she was too sick to go on with the plan. GI has been contacted. She is FULL CODE as per discussion, she nominates her fatherNitesh ([phone]) as her NOK/ POA. Medical history: Reports: Crohn's disease, on TPN due to malnutrition, vancomycin-related acute renal failure, medipport, history of probable MRSA bacteremia, RA, hypothyroidism (acquired). 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 Vital Signs Temperature 98.2 F 12/22/16 10:39 Pulse Rate 95 12/22/16 10:39 Respiratory Rate 18 12/22/16 10:39 Blood Pressure 116/75 12/22/16 10:39 O2 Sat by Pulse Oximetry 100 12/22/16 10:39 Temperature 98.6 F 12/22/16 15:28 Pulse Rate 85 12/22/16 15:28 Respiratory Rate 14 12/22/16 15:28 Blood Pressure 126/80 12/22/16 15:28 O2 Sat by Pulse Oximetry 99 12/22/16 15:28 O/E: Not acute ill looking, not in distress. HEENT: Moist mucous membrane, trachea is central, not pale, anicteric, afebrile , mild icterus Chest: Clinically clear Heart: RRR, HS1/2, no murmur Abdomen: non-distended, soft, diffuse tenderness, most in the mid and lower abdomen. no masses, Tympanic to percussion, BS+ no masses SLIP CASTER: AAO X 3, moves all limbs spontaneous, no gross focal neurological deficit : No flank tenderness, no CVA tenderness, no suprapubic tenderness. Skin: no active skin lesion. Extremities: No pedal edema, normal pedal pulses, no calf tenderness. Labs reviewed. HH=9.5/20, WBC=7.8, CRP=19 IMP Crohn' disease flare Chronic morbidities Anemia of chronic medical disease, plus chronic blood loss anemia fron GI losses , stable Hypothyroidism RA, stable Malnutrition, related to Crohn's disease, on TPN. PLAN IVF NS with 20 mEQ of KCl@ 75, continue TPN. Clear liquid diet if tolerated. Optimal analgesia and antiemetics GI consult Stamp Press Operator consult for TPN. I discussed my findings and assessment with the patient, family at bedside, she verbalized understanding and is agreeable to admission. She is admitted for symptom control and GI evaluation. Past Med Surg Social Fam HX - Past Medical History Medical history: arthritis, asthma, GERD, GI bleed, kidney stones, renal disease , seizures, thyroid disease Psychiatric history: no psych history - Past Surgical History Surgical History: appendectomy, cholecystectomy, colectomy, other - Social History Smoking Status: Never smoker Smokeless Tobacco Status: No Alcohol use: none Drug use: none - Family History Grandmother Living Status: Hx Family Cardiac Disorders: Yes Hx Family Respiratory Disorders: Yes Hx Family Cancer: No Hx Family GI Disorders: No Hx Family Genitourinary Disorders: No Hx Family Endocrine Disorder: No Hx Family Musculoskeletal Disorders: No Hx Family Neuromuscular Disorders: No Hx Family Neurologic Disorders: No Hx Family HEENT Disorders: No Hx Family Autoimmune Disorders: No Hx Family Reproductive Disorders: No Hx Family Psychosocial Disorders: No Hx Family Medical Disorders: No Internal Medicine - H&P: Meds Levothyroxine [Synthroid] 75 mcg PO DAILY 08/04/15 [History] Mesalamine [Lialda] 2.4 gm PO DAILY 09/30/15 [History] Ondansetron ODT [Zofran ODT] 4 mg SL Q6HR PRN 08/11/16 [History] Albuterol Sulfate [Albuterol Inhaler] 2 puff IH Q6H PRN 09/28/16 [History] OxyCODONE Immed Rel [Roxicodone 15 MG] 15 mg PO Q4H PRN #30 tablet 10/30/16 [Rx] Pnv95/Ferrous Fumarate/FA [Gnp Vitamins Tablet] 1 tab PO DAILY [History] Promethazine HCl [Phenergan] 25 mg IJ BID PRN 12/05/16 [History] Vedolizumab [Entyvio (For Outpatient Infusion)] 300 mg IV Q8W 12/05/16 [History] Allergies Iodinated Contrast Media - Oral and [Iodinated Contrast Media - IV Dye] Allergy (Verified 12/22/16 10:39) Difficulty Breathing ketorolac [From Toradol] Allergy (Verified 12/22/16 10:39) Difficulty Breathing metoprolol [From Lopressor] Allergy (Verified 12/22/16 10:39) Difficulty Breathing morphine Allergy (Verified 12/22/16 10:39) Difficulty Breathing vancomycin Allergy (Verified 12/22/16 10:39) Rash Melyssa rash at beginning of infusion. adalimumab [From Humira] Adverse Reaction (Verified 12/22/16 10:39) Seizure All Systems PM: A 10-system review of systems was performed and is negative for pertinent findings except as documented above in the HPI. - Constitutional Vitals: Temp Pulse Resp BP Pulse Ox 98.6 F 85 14 126/80 99 12/22/16 15:28 12/22/16 15:12/22/16 15:12/22/16 15:12/22/16 15:
[2016-12-22] MEDS: Famotidine 20 MG/2 ML VIAL IVP SCH (18:23)
[2016-12-22] MEDS: *HR* Promethazine 25 MG/ML VIAL IVP PRN (20:52)
[2016-12-22] MEDS: *HR* HYDROmorphone (PF) 1 MG/ML SYRINGE IVP PRN ×2 (20:52→22:59)
[2016-12-23] MEDS: *HR* HYDROmorphone (PF) 1 MG/ML SYRINGE IVP PRN ×10 (01:25→23:34)
[2016-12-23] MEDS: *HR* Promethazine 25 MG/ML VIAL IVP PRN ×4 (04:43→21:14)
[2016-12-23] MEDS: 0.9 % Sodium Chloride w KCl 20 MEQ/1,000 ML MLS IVC SCH (05:57)
[2016-12-23] MEDS: Famotidine 20 MG/2 ML VIAL IVP SCH (05:57)
[2016-12-23 06:16] LABS: Basophils % 0.6 %; Eosinophils % 0.4 %; Hematocrit 29.3 % (35.3-44.9); Hemoglobin 9.1 g/dL (11.5-15.4); Immature Granulocytes % 0.2 % (0-4); Lymphocytes # 2.5 K/mcL (0.6-4.6); Lymphocytes % 48.8 %; Mean Corpuscular HGB Conc 31.1 g/dL (31.6-35.5); Mean Corpuscular Hemoglobin 25.8 pg (28.0-33.3); Mean Platelet Volume 9.5 fL (9.4-12.4); Monocytes # 0.4 K/mcL (0.0-1.3); Monocytes % 7.8 %; Neutrophils # 2.1 K/mcL (1.6-8.9); Platelet Count 386 K/mcL (140-400); Red Blood Count 3.53 M/mcL (3.82-4.97); Red Cell Distribution Width 15.5 % (11.5-14.5); Segmented Neutrophils % 42.2 %
[2016-12-23 06:30] LABS: BUN/Creatinine Ratio 11 (6-26); Blood Urea Nitrogen 8 mg/dL (7-20); Calcium 8.8 mg/dL (8.6-10.8); Carbon Dioxide 25 mEq/L (19-29); Chloride 110 mEq/L (98-109); Glucose 94 mg/dL (70-99); Magnesium 1.5 mg/dL (1.6-2.6); Osmolality,Calculated 288 (280-300); Phosphorous 3.2 mg/dL (2.3-4.7); Potassium 3.7 mEq/L (3.5-4.5); Sodium 140 mEq/L (136-145); eGFR For African Americans > 60 (> 60); eGFR For Non-African Americans > 60 (> 60)
[2016-12-23] MEDS: LIALDA PO SCH (08:23)
[2016-12-23] MEDS: Prenatal Vit/FA 1 EACH TABLET PO SCH (08:23)
[2016-12-23] MEDS ORDERED: Magnesium Sulfate 2 GM in D5% in Water 100 ML IVPB ONE (09:28)
--- NOTE | 2016-12-23 09:34 | Gastroenterology Consult Note ---
<Yadi Garnica - Last Filed: 12/23/16 12:05> Date of Encounter: 12/23/16 Time of Encounter: 11:30 - Assessment and plan (1) Crohns disease Current Visit: Yes Status: Chronic Assessment and plan: Stable, continue po Lialda and Entyvio infusions. Latest Cscope 10/[address] imaging negative for acute manifestations. Patient request f/u OV with Dr. Mackey after d/c. Qualifiers: Gastrointestinal tract location: unspecified location Digestive disease complication type: without complication Qualified Code(s): K50.90 - Crohn's disease, unspecified, without complications (2) Abdominal pain Current Visit: Yes Status: Chronic Assessment and plan: Unclear etiology. She is extremely reactive to light palpation, however, her ability to sit and move do not appear to be altered. I am suspicious of continued complaint for other reasons, ie IV narcotic pain medications, anxiety. Qualifiers: Abdominal location: generalized Qualified Code(s): R10.84 - Generalized abdominal pain (3) Nausea & vomiting Current Visit: Yes Status: Chronic Assessment and plan: Unclear etiology, however, patient was asking for chocolate milk, but unable to take medications per mouth per nursing staff. No evidence of current nausea or vomiting at this time. Qualifiers: Vomiting type: unspecified Vomiting Intractability: unspecified Qualified Code(s): R11.2 - Nausea with vomiting, unspecified (4) White blood cell abnormality Current Visit: Yes Status: Acute Assessment and plan: Leukopenia, abnormal findings on peripheral smear, recommend: Hematology consult to evaluate same. - Time Spent With Patient Total time spent is greater than 50% in coordination of care (as documented) at patient's floor/unit and/or counseling patient: less than 15 minutes GI History of Present Illness - Data of Consult Patient: known to practice within the last 3 years Consult date: 12/23/16 Requesting Physician: Diann Subramanian MD - Consult Narrative Reason for consult: Crohns History of present illness: Ms. Baltazar is a 31 year old female with a PMH of Crohns, malnutrition, abdominal pain, N/V. She has been seen many times INPT and OTPT consultation by GI for Crohns disease. As of last Cscope in October 2016, no visible disease was present. Recent imaging is negative for any increase in disease process. She has had multiple complications over the past few months, including chronic vancomycin use with DEBI, MRSA infection. Currently, the patient is to receive Entyvio infusions and is on Lialda po for her disease. She was evaluated in the earlier hours of today in the ED but requested she be discharged, returning because symptoms are over burdening and include abdominal pain and N/V. She was unable to get her 3rd dose of Entyvio because she had leukopenia, however, that appears resolved as of this time. She did have some abnormal hematology findings however and has not yet been seen by Hematology in consultation. She is currently on TPN for nutritional supplementation. Her labs appear to be stable at this time. She was due to receive her 3rd dose of Entyvio today. Patient states the reason for her admission is the 'same', abdominal pain, diffuse and continuous and N/V. She admits continued diarrhea 8x daily, no blood or black stools. She does indicate an increase in her stress level due to possibly losing her job. Patient was resting very comfortably in bed, sitting up conversing with a friend at bedside at the time of my exam. Colonoscopy: 10/2016 - Gul - wnl EGD: 08/2016 - Gul - acute esophagitis, gastritis Past Med Surg Social Fam HX - Past Medical History Medical history: arthritis, asthma, GERD, GI bleed, kidney stones, renal disease , seizures, thyroid disease Psychiatric history: no psych history - Past Surgical History Surgical History: appendectomy, cholecystectomy, colectomy, other - Social History Smoking Status: Never smoker Smokeless Tobacco Status: No Alcohol use: none Drug use: none - Family History Grandmother Living Status: Hx Family Cardiac Disorders: Yes Hx Family Respiratory Disorders: Yes Hx Family Cancer: No Hx Family GI Disorders: No Hx Family Genitourinary Disorders: No Hx Family Endocrine Disorder: No Hx Family Musculoskeletal Disorders: No Hx Family Neuromuscular Disorders: No Hx Family Neurologic Disorders: No Hx Family HEENT Disorders: No Hx Family Autoimmune Disorders: No Hx Family Reproductive Disorders: No Hx Family Psychosocial Disorders: No Hx Family Medical Disorders: No - Gastrointestinal NSAID use: None Anticoagulation Use: None Number of BM Per Day: 8 Gastrointestinal: Present: abdominal pain, diarrhea, nausea, vomiting - Constitutional Constitutional: as per HPI - EENT Eyes: as per HPI Ears: Present: as per HPI Nose, mouth and throat: Present: as per HPI - Cardiovascular Cardiovascular ROS: Present: as per HPI - Respiratory Respiratory IM: Present: as per HPI - Neurological ROS Neurological GI: Present: as per HPI - Hematologic/Lymphatic Hematologic/Lymphatic pediatric: Present: as per HPI - Musculoskeletal Musculoskeletal ROS GI: Present: as per HPI - Integumentary Integumentary GI: Present: as per HPI - Psychiatric ROS Psychiatric GI: Present: as per HPI - Endocrine Endocrine IM: Present: as per HPI - Constitutional Vitals: Temp Pulse Resp BP Pulse Ox 98.2 F 106 14 109/61 96 12/23/16 08:52 12/23/16 08:52 12/23/16 08:52 12/23/16 08:52 12/23/16 08:52 General appearance: Present: cooperative, A&O X 3, no acute distress, answers questions appropriately - Head Head exam: Present: atraumatic, normocephalic - Eye Eye exam: Present: normal appearance, sclera anicteric - ENT ENT exam: Present: mucous membranes moist - Neck Neck exam general surgery: Present: normal inspection, trachea midline - Respiratory Respiratory exam: Present: CTAB - Cardiovascular Cardiovascular exam: Present: RRR, +S1, +S2 - GI/Abdominal GI/Abdominal exam: Present: soft, no peritoneal signs Additional comments: diffusely tender to palpation. - Rectal Rectal exam: Present: deferred - Extremities Exam Extremities exam: Present: warm - Neurological Exam Neurological exam: Present: no focal deficits - Psychiatric Psychiatric exam: Present: normal affect, normal mood - Skin Skin exam: Present: dry, intact, normal color, warm Results - Labs CBC & Chem 7: 12/23/16 05:54 12/23/16 05:54 Labs: Last Result Calcium 8.8 mg/dL (8.6-10.8) 12/23/16 05:54 Entire Visit Hgb 9.1 g/dL (11.5-15.4) L 12/23/16 05:54 Hct 29.3 % (35.3-44.9) L 12/23/16 05:54 Consult Discharge Plan - Plan Referrals: Jose David Hebert DO [Primary Care Provider] - <Alden Mackey - Last Filed: 12/23/16 15:06> Date of Encounter: 12/23/16 Time of Encounter: 14:00 - Time Spent With Patient Total time spent is greater than 50% in coordination of care (as documented) at patient's floor/unit and/or counseling patient: GI History of Present Illness - Data of Consult Requesting Physician: Diann Subramanian MD - Consult Narrative History of present illness: Ms. Baltazar is a 31 year old female - Constitutional Vitals: Temp Pulse Resp BP Pulse Ox 97.6 F 93 12 119/70 94 L 12/23/16 12:29 12/23/16 12:29 12/23/16 12:29 12/23/16 12:29 12/23/16 12:29 Results - Labs CBC & Chem 7: 12/23/16 05:54 12/23/16 05:54 Labs: Last Result Calcium 8.8 mg/dL (8.6-10.8) 12/23/16 05:54 Entire Visit Hgb 9.1 g/dL (11.5-15.4) L 12/23/16 05:54 Hct 29.3 % (35.3-44.9) L 12/23/16 05:54 - Attending Attestation I examined this patient and my medical decision-making was reviewed with the PATENT CLERK/PA/Advanced Practice Nurse/Resident Physician. I agree with the documented findings, disposition and treatment plan as described except to the extent set forth below. Pt currently on entyvio. No need for any oral meds
--- NOTE | 2016-12-23 09:55 | Internal Med Progress Note ---
Date of Encounter: 12/23/16 Time of Encounter: 09:53 - Assessment and plan (1) Acute Crohn's disease Current Visit: Yes Status: Acute Assessment and plan: Acute on chronic abdominal pain, nausea and vomiting; start patient's medication regimen that was proven to work in the past, decreasing her length of stay- IV Benadryl 50mg Q4hrly, IV Phenergan 25mg Q4hrly, IV Dilaudid 2mg Q2hrly PRN; noted to be on clear liquid diet as tolerated along with IV hydration; she has long-term left-sided port, for TPN at home; Nutrition consult to initiate TPN. GI consult for further management, noted to be on Mesalamine and Entyvio as outpatient, due for her third injection of Entyvio; Refuses to try PO meds at this time; Qualifiers: Digestive disease complication type: unspecified complication Qualified Code(s): K50.919 - Crohn's disease, unspecified, with unspecified complications (2) Hypothyroidism Current Visit: Yes Status: Chronic Assessment and plan: resume Levothyroxine; Qualifiers: Hypothyroidism type: unspecified Qualified Code(s): E03.9 - Hypothyroidism , unspecified (3) Pain syndrome, chronic Current Visit: Yes Status: Chronic Assessment and plan: On Oxycodone 15mg Q4hrly PRN at home; plan to transition to home regimen at discharge; - Subjective Interval history: Reports abdominal pain. Also has nausea and vomiting. Patient is very cheerful and talkative and has had multiple hospitalizations in the past with similar complaints. She does have an inpatient medication regimen to manage her acute on chronic pain, nausea and vomiting and requests that we follow the same regimen this admission. - Constitutional Vitals: Temp Pulse Resp BP Pulse Ox 98.2 F 106 14 109/61 96 12/23/16 08:52 12/23/16 08:52 12/23/16 08:52 12/23/16 08:52 12/23/16 08:52 General appearance: Present: A&O X 3, answers questions appropriately - Head Head exam: Present: atraumatic, normocephalic - Neck Neck exam general surgery: Present: supple, trachea midline. Absent: lymphadenopathy - Respiratory Respiratory exam: Present: CTAB. Absent: accessory muscle use, rales, rhonchi, wheezes - Cardiovascular Cardiovascular exam: Present: RRR, +S1, +S2. Absent: diastolic murmur, gallop, rubs, systolic murmur - GI/Abdominal GI/Abdominal exam: Present: normal bowel sounds, soft (Diffuse tenderness, mostly in the left and right lower quadrants. No guarding or rigidity), no peritoneal signs. Absent: distended, tenderness - Extremities Exam Extremities exam: Present: full ROM, warm, radial pulses palpable and symetrical. Absent: calf tenderness, cyanotic, pedal edema - Neurological Exam Neurological exam: Present: CN II-XII intact, oriented X3, no focal deficits. Absent: pronater drift, facial droop, speech deficit - Skin Skin exam: Present: dry, intact Internal Medicine: Result - Labs CBC & Chem 7: 12/23/16 05:54 12/23/16 05:54 Labs: Short CBC 12/23/16 Range/Units 05:54 WBC 5.0 (4.3-11.1) K/mcL Hgb 9.1 L (11.5-15.4) g/dL Hct 29.3 L (35.3-44.9) % Plt Count 386 (140-400) K/mcL Neutrophils # 2.1 (1.6-8.9) K/mcL BMP 12/23/16 05:54 Sodium 140 Potassium 3.7 Chloride 110 H Carbon Dioxide 25 BUN 8 Creatinine 0.70 Glucose 94 Calcium 8.8 Consult Discharge Plan - Plan Referrals: Jose David Hebert DO [Primary Care Provider] -
[2016-12-23] MEDS ORDERED: D10% in Water 500 ML IV PRN (12:09)
[2016-12-23] MEDS: *HR* OxyCODONE Immed Rel 15 MG TABLET PO PRN (15:14)
[2016-12-23] MEDS: Ondansetron 4 MG/2 ML VIAL IVP PRN (15:14)
[2016-12-23] MEDS: Levothyroxine Sodium 100 MCG VIAL IV SCH (16:22)
[2016-12-23] MEDS ORDERED: Clinimix E 5%-15% SOLUTION 2,000 ML with MVI, adult with vitamin K 10 ML IV SCH (17:00)
[2016-12-23] MEDS: *HR* Heparin 5,000 UNIT/ML VIAL SQ SCH (18:51)
[2016-12-24] MEDS: *HR* HYDROmorphone (PF) 1 MG/ML SYRINGE IVP PRN ×10 (02:36→23:47)
[2016-12-24] MEDS: *HR* Promethazine 25 MG/ML VIAL IVP PRN ×4 (02:39→21:13)
[2016-12-24 05:05] LABS: BUN/Creatinine Ratio 23 (6-26); Blood Urea Nitrogen 16 mg/dL (7-20); Calcium 9.1 mg/dL (8.6-10.8); Carbon Dioxide 29 mEq/L (19-29); Chloride 103 mEq/L (98-109); Glucose 89 mg/dL (70-99); Magnesium 1.9 mg/dL (1.6-2.6); Osmolality,Calculated 289 (280-300); Potassium 3.9 mEq/L (3.5-4.5); Sodium 139 mEq/L (136-145); eGFR For African Americans > 60 (> 60); eGFR For Non-African Americans > 60 (> 60)
[2016-12-24 05:06] LABS: Phosphorous 5.9 mg/dL (2.3-4.7)
[2016-12-24] MEDS: *HR* Heparin 5,000 UNIT/ML VIAL SQ SCH ×2 (06:43→18:35)
[2016-12-24] MEDS: Ondansetron 4 MG/2 ML VIAL IVP PRN ×2 (08:32→18:35)
[2016-12-24] MEDS: Levothyroxine Sodium 100 MCG VIAL IV SCH (08:33)
[2016-12-24] MEDS: Prenatal Vit/FA 1 EACH TABLET PO SCH (08:34)
[2016-12-24] MEDS: LIALDA PO SCH ×2 (08:34)
--- NOTE | 2016-12-24 09:16 | Internal Med Progress Note ---
Date of Encounter: 12/24/16 Time of Encounter: 09:13 - Assessment and plan (1) Acute Crohn's disease Current Visit: Yes Status: Acute Assessment and plan: Acute on chronic abdominal pain, nausea and vomiting; no clear etiology for vomiting. continue IV Benadryl 50mg Q4hrly, IV Phenergan 25mg Q4hrly, IV Dilaudid 2mg Q2hrly PRN; willing to try intermittent PO Oxycodone today. Has been started on TPN; clear liquid diet as tolerated; Nutrition on board for TPN management assistance. GI consult noted, recommend to continue PO Mesalamine and Entyvio infusions as previously scheduled. Patient is due for third Entyvio infusion this week, home health infusion has been set up for Tuesday- 12/26. Qualifiers: Digestive disease complication type: unspecified complication Qualified Code(s): K50.919 - Crohn's disease, unspecified, with unspecified complications (2) Hypothyroidism Current Visit: Yes Status: Chronic Assessment and plan: resume Levothyroxine; patient refused to take oral tablet, so has been ordered adjusted dose of IV Levothyroxine. Qualifiers: Hypothyroidism type: unspecified Qualified Code(s): E03.9 - Hypothyroidism , unspecified (3) Pain syndrome, chronic Current Visit: Yes Status: Chronic Assessment and plan: On Oxycodone 15mg Q4hrly PRN at home; plan to transition to home regimen at discharge; Talked at length with patient, including my review of previous notes and d/w GI (since she is able to function well with no clinical signs of excruciating pain) , that she requires to try and continue her medication regimen for Crohn's disease, and limit readmissions that would eventually hamper her quality of life and ability to go back to employment; she verbalized understanding and will try to take oral pills today. - Subjective Interval history: Feels slightly better but reports a lot of abdominal pain; reports trying to keep her liquid diet down, also wants to attempt to take oral pain meds today, to plan for discharge; has intermittent nausea and vomiting. Has diarrhea at baseline. Noted to be applying makeup and nailpolish at bedside. - Constitutional Vitals: Temp Pulse Resp BP Pulse Ox 98.3 F 87 17 110/65 100 12/24/16 07:04 12/24/16 07:04 12/24/16 07:04 12/24/16 07:04 12/24/16 07:04 General appearance: Present: A&O X 3, answers questions appropriately - Respiratory Respiratory exam: Present: CTAB. Absent: accessory muscle use, rales, rhonchi, wheezes - Cardiovascular Cardiovascular exam: Present: RRR, +S1, +S2. Absent: diastolic murmur, gallop, rubs, systolic murmur - GI/Abdominal GI/Abdominal exam: Present: normal bowel sounds, soft (tenderness to light palpation in lower abdomen- LLQ and RLQ), no peritoneal signs. Absent: distended, tenderness Internal Medicine: Result - Labs CBC & Chem 7: 12/23/16 05:54 12/24/16 04:25 Labs: BMP 12/24/16 04:25 Sodium 139 Potassium 3.9 Chloride 103 Carbon Dioxide 29 BUN 16 Creatinine 0.71 Glucose 89 Calcium 9.1 Consult Discharge Plan - Plan Referrals: Jose David Hebert DO [Primary Care Provider] -
[2016-12-24] MEDS: *HR* OxyCODONE Immed Rel 15 MG TABLET PO PRN (10:00)
[2016-12-24] MEDS ORDERED: Clinimix 5%-20% SOLUTION 2,000 ML with MVI, adult with vitamin K 10 ML, Sodium Acetat... IV SCH (17:00)
[2016-12-24] MEDS: 0.9 % Sodium Chloride w KCl 20 MEQ/1,000 ML MLS IVC SCH (23:38)
[2016-12-25] MEDS: *HR* Promethazine 25 MG/ML VIAL IVP PRN ×5 (01:52→22:37)
[2016-12-25] MEDS: *HR* HYDROmorphone (PF) 1 MG/ML SYRINGE IVP PRN ×8 (01:53→22:37)
[2016-12-25] MEDS: Ondansetron 4 MG/2 ML VIAL IVP PRN ×3 (04:46→16:09)
[2016-12-25] MEDS: *HR* Heparin 5,000 UNIT/ML VIAL SQ SCH ×2 (06:13→16:09)
[2016-12-25] MEDS: *HR* OxyCODONE Immed Rel 15 MG TABLET PO PRN (06:15)
[2016-12-25] MEDS: LIALDA PO SCH (07:37)
[2016-12-25] MEDS: Prenatal Vit/FA 1 EACH TABLET PO SCH (07:37)
[2016-12-25] MEDS: Levothyroxine Sodium 100 MCG VIAL IV SCH (07:41)
[2016-12-25] MEDS ORDERED: Clinimix 5%-20% SOLUTION 2,000 ML with MVI, adult with vitamin K 10 ML, Sodium Acetat... IV SCH (17:00)
[2016-12-26] MEDS: Ondansetron 4 MG/2 ML VIAL IVP PRN ×2 (01:00→11:12)
[2016-12-26] MEDS: *HR* HYDROmorphone (PF) 1 MG/ML SYRINGE IVP PRN ×5 (01:00→10:19)
[2016-12-26] MEDS: *HR* Promethazine 25 MG/ML VIAL IVP PRN ×2 (03:16→10:19)
[2016-12-26] MEDS: *HR* Heparin 5,000 UNIT/ML VIAL SQ SCH (06:07)
--- NOTE | 2016-12-26 07:32 | Internal Med Progress Note ---
Date of Encounter: 12/25/16 Time of Encounter: 18:00 - Assessment and plan (1) Acute Crohn's disease Current Visit: Yes Status: Acute Assessment and plan: Acute on chronic abdominal pain, nausea and vomiting; no clear etiology for vomiting. No other signs of Crohn's flareup like GI bleed or fever or leukocytosis. continue IV Benadryl 50mg Q4hrly, IV Phenergan 25mg Q4hrly, IV Dilaudid 2mg Q2hrly PRN; willing to continue to try intermittent PO Oxycodone. Continue TPN; clear liquid diet as tolerated; Nutrition on board for TPN management assistance. GI consult noted, recommend to continue PO Mesalamine and Entyvio infusions as previously scheduled. Patient is due for third Entyvio infusion this week, outpatient infusion has been set up for Tuesday- 12/26. Anticipate discharge in a.m. Qualifiers: Digestive disease complication type: unspecified complication Qualified Code(s): K50.919 - Crohn's disease, unspecified, with unspecified complications (2) Hypothyroidism Current Visit: Yes Status: Chronic Qualifiers: Hypothyroidism type: unspecified Qualified Code(s): E03.9 - Hypothyroidism , unspecified (3) Pain syndrome, chronic Current Visit: Yes Status: Chronic - Subjective Interval history: Patient continues to report severe abdominal pain along with intermittent nausea and vomiting, especially with her oral pain medications. She is trying to take oral pain meds instead of IV as much as possible and according to her. She would like to be discharged tomorrow and receive her outpatient Entyvio injection. - Constitutional Vitals: Temp Pulse Resp BP Pulse Ox 98.0 F 88 12 95/62 100 12/26/16 04:03 12/26/16 04:03 12/26/16 04:03 12/26/16 04:03 12/26/16 04:03 General appearance: Present: A&O X 3, answers questions appropriately - Respiratory Respiratory exam: Present: CTAB. Absent: accessory muscle use, rales, rhonchi, wheezes - Cardiovascular Cardiovascular exam: Present: RRR, +S1, +S2. Absent: diastolic murmur, gallop, rubs, systolic murmur - GI/Abdominal GI/Abdominal exam: Present: normal bowel sounds, soft (Diffuse tenderness to light palpation, more pronounced in left and right lower quadrants), no peritoneal signs. Absent: distended, tenderness Internal Medicine: Result - Labs CBC & Chem 7: 12/23/16 05:54 12/24/16 04:25 Consult Discharge Plan - Plan Referrals: Jose David Hebert DO [Primary Care Provider] -
[2016-12-26 07:49] VITALS: BP 101/69
[2016-12-26] MEDS: Prenatal Vit/FA 1 EACH TABLET PO SCH (08:18)
[2016-12-26] MEDS: Levothyroxine Sodium 100 MCG VIAL IV SCH (08:18)
[2016-12-26] MEDS: LIALDA PO SCH (08:18)
--- NOTE | 2016-12-26 10:16 | Discharge Summary ---
Date of Encounter: 12/26/16 Time of Encounter: 10:14 - Discharge Diagnosis (1) Acute Crohn's disease Priority: Primary Status: Acute Qualifiers: Digestive disease complication type: unspecified complication Qualified Code(s): K50.919 - Crohn's disease, unspecified, with unspecified complications (2) Hypothyroidism Priority: Secondary Status: Chronic Qualifiers: Hypothyroidism type: unspecified Qualified Code(s): E03.9 - Hypothyroidism , unspecified (3) Pain syndrome, chronic Priority: Secondary Status: Chronic - Discharge Medications Home Medications: Levothyroxine [Synthroid] 75 mcg PO DAILY 08/04/15 [History] Mesalamine [Lialda] 2.4 gm PO DAILY 09/30/15 [History] Ondansetron ODT [Zofran ODT] 4 mg SL Q6HR PRN 08/11/16 [History] Albuterol Sulfate [Albuterol Inhaler] 2 puff IH Q6H PRN 09/28/16 [History] OxyCODONE Immed Rel [Roxicodone 15 MG] 15 mg PO Q4H PRN #30 tablet 10/30/16 [Rx] Pnv95/Ferrous Fumarate/FA [Gnp Vitamins Tablet] 1 tab PO DAILY [History] Promethazine HCl [Phenergan] 25 mg IJ BID PRN 12/05/16 [History] Vedolizumab [Entyvio (For Outpatient Infusion)] 300 mg IV Q8W 12/05/16 [History] Allergies/Adverse Reactions: Allergies Iodinated Contrast Media - Oral and [Iodinated Contrast Media - IV Dye] Allergy (Verified 12/22/16 10:39) Difficulty Breathing ketorolac [From Toradol] Allergy (Verified 12/22/16 10:39) Difficulty Breathing metoprolol [From Lopressor] Allergy (Verified 12/22/16 10:39) Difficulty Breathing morphine Allergy (Verified 12/22/16 10:39) Difficulty Breathing vancomycin Allergy (Verified 12/22/16 10:39) Rash Melyssa rash at beginning of infusion. adalimumab [From Humira] Adverse Reaction (Verified 12/22/16 10:39) Seizure Date of admission: 12/23/16 09:52 Primary care physician: Jose David Hebert DO Discharging clinician: Diann Subramanian Anticipated date of discharge: 12/26/16 - Patient Status Disposition: Home Health Service Condition: Good Functional capacity at discharge: independent ambulation Overall status at discharge: patient is progressing back to baseline - Discharge Instructions Follow Up With: Jose David Hebert DO [Primary Care Provider] - Additional Instructions: Follow-up with Harleen BEAR as scheduled. - Diet and Activity Activity: resume usual activities as tolerated Diet: advance to your usual diet (Patient is noted to be on total parenteral nutrition and oral diet as tolerated at home) Hospital course: Ms. Baltazar is a 31 year old female with history of Crohn's disease, who follows with GI as an outpatient, was admitted with acute abdominal pain. Patient has had a recent ER visit when she had CT abdomen/pelvis done, which showed no acute abnormality. Initial labs done during this admission showed no acute abnormality. Patient has had multiple recurrent admissions in the past with similar complaints and she has a set regimen including IV narcotic and analgesics, antiemetics and antihistamines. She was started on this regimen-IV Dilaudid 2 mg every 2 hours, IV Benadryl 50 mg every 4 hours, IV Phenergan 25 mg every 4 hours along with oral Percocet 10/325 every 4 hours as needed. She continues to refuse to take any oral medications, however was noted to tolerate liquid diet intermittently. She is also noted to be on TPN at home, which has been continued here. Multiple previous records show that patient is quite manipulative and would stay in the hospital for a few days, on the above regimen, before being discharged. She would always straight her pain 10/10 even prior to discharge. GI was consulted and recommended to continue her outpatient treatment regimen including mesalamine and Entyvio infusions. Patient was due for her third Entyvio infusion, which is arranged for today. She is medically stable for discharge with outpatient GI follow-up. - Time Spent with Patient Total time spent providing and/or coordinating discharge services: Greater than 30 minutes (45 min) - Constitutional Vitals: Temp Pulse Resp BP Pulse Ox 98.2 F 107 18 101/69 98 12/26/16 07:21 12/26/16 07:21 12/26/16 07:21 12/26/16 07:21 12/26/16 07:21 General appearance: Present: A&O X 3, answers questions appropriately - Cardiovascular Cardiovascular exam: Present: RRR, +S1, +S2, tachycardia. Absent: diastolic murmur, gallop, rubs, systolic murmur - GI/Abdominal GI/Abdominal exam: Present: normal bowel sounds, soft (Tenderness to light palpation in central and lower abdomen. No guarding or rigidity.), no peritoneal signs. Absent: distended, tenderness
--- NOTE | 2016-12-26 10:19 | Physician Discharge Referral ---
Home Health/Hosp Referral Info Transfer to: Home Health Attending Provider: Diann Subramanian Provider in Charge Post Discharge: PCP - Diagnosis (1) Acute Crohn's disease Priority: Primary Status: Acute (2) Hypothyroidism Priority: Secondary Status: Chronic (3) Pain syndrome, chronic Priority: Secondary Status: Chronic - Respiratory Orders Smoking Cessation: Smoking cessation has been advised. For more information, call the [place] Tobacco Quit Line at 3-085-IESI-NOW. - Diet/Nutrition Diet/Nutrition Orders: Regular Diet/Nutrition: List: TPN through [facility] - Activity Activity Orders: Ambulate - Services Needed Following services are medically necessary services: Nursing - Transfer Medications Home Medications: Levothyroxine [Synthroid] 75 mcg PO DAILY 08/04/15 [History] Mesalamine [Lialda] 2.4 gm PO DAILY 09/30/15 [History] Ondansetron ODT [Zofran ODT] 4 mg SL Q6HR PRN 08/11/16 [History] Albuterol Sulfate [Albuterol Inhaler] 2 puff IH Q6H PRN 09/28/16 [History] OxyCODONE Immed Rel [Roxicodone 15 MG] 15 mg PO Q4H PRN #30 tablet 10/30/16 [Rx] Pnv95/Ferrous Fumarate/FA [Gnp Vitamins Tablet] 1 tab PO DAILY [History] Promethazine HCl [Phenergan] 25 mg IJ BID PRN 12/05/16 [History] Vedolizumab [Entyvio (For Outpatient Infusion)] 300 mg IV Q8W 12/05/16 [History] Allergies/Adverse Reactions: Allergies Iodinated Contrast Media - Oral and [Iodinated Contrast Media - IV Dye] Allergy (Verified 12/22/16 10:39) Difficulty Breathing ketorolac [From Toradol] Allergy (Verified 12/22/16 10:39) Difficulty Breathing metoprolol [From Lopressor] Allergy (Verified 12/22/16 10:39) Difficulty Breathing morphine Allergy (Verified 12/22/16 10:39) Difficulty Breathing vancomycin Allergy (Verified 12/22/16 10:39) Rash Melyssa rash at beginning of infusion. adalimumab [From Humira] Adverse Reaction (Verified 12/22/16 10:39) Seizure Certification: Further, I certify that my clinical findings support that this patient is homebound (i.e. absences from home require considerable and taxing effort and are for medical reasons or mandaen services or infrequently or short duration when for other reasons) because: Homebound Reason: Patient requires assistance of a person or device to safely leave home (Requires TPN monitoring and assistance) Attestation: My signature below is to certify that this patient is under my care and that I, or nurse practitioner, or a physician's insurance assistant working with me, has a face-to -face encounter with this patient.
[2016-12-26] MEDS: *HR* OxyCODONE Immed Rel 15 MG TABLET PO PRN (11:12)
== END 2016-12-26 11:26 | disposition home health service (06) | DRG 245 ==
LOC: 3ANU 10:32 → EMEROO 10:32 → 3ANU 15:30
PROVIDERS: ADMIT Internal Medicine; ATTEND Internal Medicine

== ENCOUNTER 2017-02-27 19:22 | Inpatient (IN) ==
--- NOTE | 2017-02-27 20:00 | Emergency Department Note ---
Disposition Clinical Impression: Bacteremia, History of Crohn's disease Chest pain Qualifiers: Chest pain type: unspecified Qualified Code(s): R07.9 - Chest pain, unspecified Disposition: Admitted As Inpatient Condition: Fair General Adult HPI - General Chief complaint: ED General Medical Stated complaint: was called to come in positive blood cultures Time Seen by Provider: 02/27/17 19:33 Source: patient Mode of arrival: ambulatory Limitations: no limitations Nursing Notes Reviewed: Yes Vital Signs Reviewed: Yes - History of Present Illness HPI Narrative: 31-year-old female history of Crohn's presents for evaluation of a positive blood culture. Patient does have a recent history where she was bacteremic from a left-sided chest port and was on IV antibiotics administrated through a right upper chimney PICC line. Patient is currently not on any antibiotics at this point. Patient was seen here for where she had a chest pain shortness of breath workup that included blood cultures. Patient had one of 2 positive blood cultures that was drawn from the PICC and a right upper extremity which is now removed. Patient followed up with her surgeon at [place] where her left chest port was removed and replaced with a right chest port. Patient's ports were used for TPN. Patient states that since being discharged from 02/23 she has been having increasing shortness of breath and chest pain. Patient's also been spiking temperatures of greater than 101 Fahrenheit. Patient's been taking Tylenol every 4 hours. Patient took Tylenol 2 hours prior to arrival. Patient also has a recent diagnosis of a left upper extremity DVT and is being treated with therapeutic Lovenox. During the prior ED visit the patient had a VQ scan which showed low likelihood of pulmonary embolism. Patient does have a contrast allergy to CT dye where she states that she stops breathing. Patient reports that her nausea and vomiting and abdominal pain appeared to be at baseline for her Crohn's. Pain Scale: 7 - Related Data Home Medications Medication Instructions Recorded Confirmed Levothyroxine [Synthroid] 75 mcg PO DAILY 08/04/15 02/28/17 Mesalamine [Lialda] 2.4 gm PO DAILY 09/30/15 02/28/17 Ondansetron ODT [Zofran ODT] 4 mg SL Q6HR PRN 08/11/16 02/28/17 Albuterol Sulfate [Albuterol 2 puff IH Q6H PRN 09/28/16 02/28/17 Inhaler] Promethazine HCl [Phenergan] 25 mg IJ Q6HR PRN 12/05/16 02/28/17 Vedolizumab [Entyvio (For 300 mg IV Q8W 12/05/16 02/28/17 Outpatient Infusion)] Budesonide [Entocort EC] 9 02/28/17 DiphenhydraMINE [Benadryl] 50 mg IV Q4HR PRN 02/28/17 02/28/17 Enoxaparin [Lovenox] 60 mg SQ DAILY 02/28/17 02/28/17 Previous Rx's Medication Instructions Recorded OxyCODONE Immed Rel [Roxicodone 15 15 mg PO Q4H PRN #30 tablet 10/30/16 MG] Allergies Allergy/AdvReac Type Severity Reaction Status Date / Time Iodinated Contrast Media - Allergy Difficulty Verified 02/27/17 19:27 Oral and Breathing [Iodinated Contrast Media - IV Dye] ketorolac [From Toradol] Allergy Difficulty Verified 02/27/17 19:27 Breathing metoprolol [From Lopressor] Allergy Difficulty Verified 02/27/17 19:27 Breathing morphine Allergy Difficulty Verified 02/27/17 19:27 Breathing vancomycin Allergy Rash Verified 02/27/17 19:27 adalimumab [From Humira] AdvReac Seizure Verified 02/27/17 19:27 All systems ED: reviewed and negative except as stated. Constitutional: Reports: as per HPI, fever Eyes: Reports: as per HPI ENT ED: Reports: as per HPI Cardiovascular: Reports: as per HPI, chest pain Respiratory: Reports: as per HPI, dyspnea. Denies: cough Gastrointestinal: Reports: as per HPI, abdominal pain, nausea, vomiting, diarrhea Genitourinary: Reports: as per HPI Musculoskeletal: Reports: as per HPI Integumentary: Reports: as per HPI Neurological: Reports: as per HPI Psychiatric: Reports: as per HPI Endocrine: Reports: as per HPI Hematological/Lymphatic: Reports: as per HPI Past Medical History - Past Medical History Medical history: Reports: arthritis, asthma, GERD, GI bleed, kidney stones, renal disease, seizures, thyroid disease, other Surgical history: Reports: appendectomy, cholecystectomy, colectomy, other Psychiatric history: Reports: no psych history [employer] history: Reports: endometriosis - Social History Smoking Status: Never smoker Smokeless Tobacco Status: No Alcohol use: Reports: none Drug use: Reports: none Physical Exam - General Limitations: no limitations General appearance: alert, in no apparent distress - Head Head exam: atraumatic, normocephalic, normal inspection - Eye Eye exam: Present: normal appearance, EOMI - ENT ENT exam: normal exam, mucous membranes moist - Neck Neck exam: Present: normal inspection, trachea midline - Chest Chest inspection: Present: normal inspection, symmetric chest wall rise, other ( Right upper chest port with no overlying erythema or cellulitis). Absent: tenderness, rash - Respiratory Respiratory exam: Present: normal lung sounds bilaterally. Absent: respiratory distress - Cardiovascular Cardiovascular exam: Present: regular rate, tachycardia. Absent: systolic murmur - Abdominal Exam Abdominal exam: Present: soft, Non-Tender - Extremities Exam Extremities exam: Present: normal inspection. Absent: pedal edema - Neurological Exam Neurological exam: Present: alert, oriented X3 - Skin Skin exam: Present: warm, dry, intact, normal color Course Course Narrative: Patient seen and examined. Patient appears in mild discomfort. Patient does have a history of a temperature the DVT as well as a one of 2 positive blood cultures from 419. Patient's blood culture was drawn from PICC line which has been since removed. Patient's sensitivity to her blood culture was reviewed and is, vancomycin is sensitive. Patient will be started on IV antibiotics, lab work including CBC, coags, electrolytes as well as troponin, EKG and chest x -ray. Patient will likely need admission for bacteremia. - Reevaluation(s) Reevaluation #1: Patient seen and examined. Patient states that she has a reaction to vancomycin and was on that initially. Patient requests not to be on vancomycin. Patient was on daptomycin prior. Will start antibiotic treatment with daptomycin. Patient will also get a CT of the chest after being premedicated with Benadryl and Solu-Medrol. Patient states that she was able to be premedicated last time when she had a CT with contrast. Time: 21:32 Reevaluation #2: Spoke with hospitalist who is hesitant to admit the patient this time. States that he will speak with the patient directly. Concern of the patient lines have been managed at [facility] Time: 23:16 Reevaluation #3: Hospitalist accepts that patient after visiting with the patient. Time: 23:37 Vital Signs Temperature 98.7 F 02/27/17 19:27 Pulse Rate 125 02/27/17 19:27 Respiratory Rate 20 02/27/17 19:27 Blood Pressure 101/66 02/27/17 19:27 O2 Sat by Pulse Oximetry 100 02/27/17 19:27 Temperature 98.7 F 02/27/17 19:27 Pulse Rate 117 02/27/17 23:41 Respiratory Rate 20 02/28/17 00:21 Blood Pressure 130/89 02/28/17 00:21 O2 Sat by Pulse Oximetry 99 02/27/17 23:41 Oxygen Delivery Oxygen Delivery Room Air Medical Decision Making - MDM Narrative Medical decision making narrative: 31-year-old female with a history of Crohn's disease presents for evaluation after an abnormal lab. Patient had blood cultures drawn on the of this month which was one of 2 positive blood cultures from a PICC line in her right upper extremity. That extremity PICC line was removed. Since that time the patient's continues spike fevers and been having in her mid chest pain. Patient does have a history of MRSA bacteremia from a prior port. Patient was evaluated at outside hospital with her primary surgeon where her ports were exchanged. Patient also had a Doppler of her left upper extremity performed which showed a DVT. Patient is currently on Lovenox therapeutic dosage. Patient obtain repeat lab work, EKG, chest x-ray as well as a CTA. CTA did not define any pulmonary embolism. Patient was started on antibiotics. Patient states that she had reaction to vancomycin and was started on daptomycin which is similar antibiotic than before with prior bacteremia. Patient's culture did grow several sensitivities however many of these were by mouth antibiotics and given the patient's GI pathology with Crohn's concern for appropriate absorption. Patient pain was controlled in the emergency department. The patient was admitted to the hospitalist service for further evaluation monitoring. Repeat blood cultures were drawn. Patient would likely benefit from continuing antibiotic therapy until blood cultures are cleared. - Lab Data Lab results reviewed: Yes I reviewed the patient's lab results. Result diagrams: 02/27/17 20:17 02/27/17 20:17 Lab Results 02/27/17 02/27/17 02/27/17 Range/Units 20:17 20:17 20:17 WBC (4.3-11.1) K/mcL RBC (3.82-4.97) M/mcL Hgb (11.5-15.4) g/dL Hct (35.3-44.9) % MCV (83.0-100.0) fL MCH (28.0-33.3) pg MCHC (31.6-35.5) g/dL RDW (11.5-14.5) % Plt Count (140-400) K/mcL MPV (9.4-12.4) fL Immature Gran % (0-4) % Seg Neutrophils % % Lymphocytes % % Monocytes % % Eosinophils % % Basophils % % Neutrophils # (1.6-8.9) K/mcL Lymphocytes # (0.6-4.6) K/mcL Monocytes # (0.0-1.3) K/mcL Eosinophils # (0.0-0.6) K/mcL Basophils # (0.0-0.2) K/mcL PT 11.5 (9.4-12.1) Seconds INR 1.1 APTT 30.8 (26.0-36.0) Seconds Sodium 138 (136-145) mEq/L Potassium 3.6 (3.5-4.5) mEq/L Chloride 107 (98-109) mEq/L Carbon Dioxide 22 (19-29) mEq/L BUN 11 (7-20) mg/dL Creatinine 0.79 (0.57-1.11) mg/dL Est GFR ( Amer) > 60 (> 60) Est GFR (Non-Af Amer) > 60 (> 60) BUN/Creatinine Ratio 14 (6-26) Glucose 93 (70-99) mg/dL Calculated Osmolality 285 (280-300) Calcium 9.6 (8.6-10.8) mg/dL Magnesium 2.0 (1.6-2.6) mg/dL Total Bilirubin 0.5 (0.2-1.2) mg/dL Direct Bilirubin 0.2 (0.0-0.5) mg/dL Indirect Bilirubin 0.3 (0.0-1.2) mg/dL AST 18 (5-34) Units/L ALT 19 (0-55) Units/L Alkaline Phosphatase 65 (38-126) Units/L Troponin I (0-0.03) ng/mL Serum Total Protein 7.5 (6.0-8.3) g/dL Albumin 3.9 (3.5-5.0) g/dL Globulin 3.6 H (2.4-3.5) g/dL Albumin/Globulin Ratio 1.1 (1.1-2.2) Lipase 13 (8-78) Units/L Urine Color (Yellow) Urine Clarity (Clear) Urine pH (5.0-8.0) pH Units Ur Specific [place] (1.010-1.025) Urine Protein (Neg-Trace) mg/dL Urine Glucose (UA) (Normal) mg/dL Urine Ketones (Negative) mg/dL Urine Blood (Negative) Urine Nitrite (Negative) Urine Bilirubin (Negative) Urine Urobilinogen (Normal) mg/dL Ur Leukocyte Esterase (Negative) Urine Microscopic RBC (0-3) per hpf Urine Microscopic WBC (0-3) per hpf Ur Squamous Epith Cells (None-Few) per lpf Calcium Oxalate Crystal Urine Bacteria (None-Few) per hpf Hyaline Casts (None-Few) per lpf Urine Mucus (Few) Ur Culture Indicated? (NO) Urine Test Negative (Negative) 02/27/17 02/27/17 02/27/17 Range/Units 20:17 20:17 20:22 WBC 8.3 (4.3-11.1) K/mcL RBC 4.77 (3.82-4.97) M/mcL Hgb 11.6 (11.5-15.4) g/dL Hct 37.6 (35.3-44.9) % MCV 78.8 L (83.0-100.0) fL MCH 24.3 L (28.0-33.3) pg MCHC 30.9 L (31.6-35.5) g/dL RDW 17.9 H (11.5-14.5) % Plt Count 375 (140-400) K/mcL MPV 10.8 (9.4-12.4) fL Immature Gran % 0.2 (0-4) % Seg Neutrophils % 65.6 % Lymphocytes % 26.4 % Monocytes % 6.7 % Eosinophils % 0.7 % Basophils % 0.4 % Neutrophils # 5.5 (1.6-8.9) K/mcL Lymphocytes # 2.2 (0.6-4.6) K/mcL Monocytes # 0.6 (0.0-1.3) K/mcL Eosinophils # 0.1 (0.0-0.6) K/mcL Basophils # 0.0 (0.0-0.2) K/mcL PT (9.4-12.1) Seconds INR APTT (26.0-36.0) Seconds Sodium (136-145) mEq/L Potassium (3.5-4.5) mEq/L Chloride (98-109) mEq/L Carbon Dioxide (19-29) mEq/L BUN (7-20) mg/dL Creatinine (0.57-1.11) mg/dL Est GFR ( Amer) (> 60) Est GFR (Non-Af Amer) (> 60) BUN/Creatinine Ratio (6-26) Glucose (70-99) mg/dL Calculated Osmolality (280-300) Calcium (8.6-10.8) mg/dL Magnesium (1.6-2.6) mg/dL Total Bilirubin (0.2-1.2) mg/dL Direct Bilirubin (0.0-0.5) mg/dL Indirect Bilirubin (0.0-1.2) mg/dL AST (5-34) Units/L ALT (0-55) Units/L Alkaline Phosphatase (38-126) Units/L Troponin I 0.00 (0-0.03) ng/mL Serum Total Protein (6.0-8.3) g/dL Albumin (3.5-5.0) g/dL Globulin (2.4-3.5) g/dL Albumin/Globulin Ratio (1.1-2.2) Lipase (8-78) Units/L Urine Color Yellow (Yellow) Urine Clarity Clear (Clear) Urine pH 6.5 (5.0-8.0) pH Units Ur Specific [place] >= 1.030 H (1.010-1.025) Urine Protein 30 H (Neg-Trace) mg/dL Urine Glucose (UA) Normal (Normal) mg/dL Urine Ketones Trace H (Negative) mg/dL Urine Blood Trace-intact H (Negative) Urine Nitrite Negative (Negative) Urine Bilirubin Small H (Negative) Urine Urobilinogen Normal (Normal) mg/dL Ur Leukocyte Esterase Negative (Negative) Urine Microscopic RBC 0-3 (0-3) per hpf Urine Microscopic WBC 0-3 (0-3) per hpf Ur Squamous Epith Cells Moderate H (None-Few) per lpf Calcium Oxalate Crystal Present Urine Bacteria None Seen (None-Few) per hpf Hyaline Casts None Seen (None-Few) per lpf Urine Mucus Moderate H (Few) Ur Culture Indicated? NO (NO) Urine Test (Negative) - Radiology Data Radiology results reviewed: Yes I reviewed the patient's radiology results. Chest X-Ray 02/27/17 20:10 IMPRESSION: No acute process. D/ / Ulysses Veloz MD / Ulysses Veloz MD Interpreting Provider: Ulysses Veloz MD Chest CTA 02/27/17 21:26 IMPRESSION: 1. No evidence of pulmonary embolus. D/ / 02/27/2017 22:46:08 Oscar Dominguez MD / [facility] Interpreting Provider: Oscar Dominguez MD - EKG Data EKG #1 EKG shows normal: sinus rhythm Rate: tachycardia Rhythm: NSR QTc: other (380) When compared to previous EKG there are: no significant changes Interpretation: unchanged when compared to prior tracing (date) (02/23/2017) Danielle - Danielle Situation: Demographics, MOA Background: Presenting Complaint Assessment: Vital Signs, Course and respsone to treatment, Patient/Family Expectation Recommendation: Barrier(s) to disposition, Recommendation based on pending studies, treatments, or consults S.B.Jayden Report Given to: Dr. Ramesh Santos Repor Time: 23:39
--- NOTE | 2017-02-27 20:05 | Emergency Department Note ---
START Narrative - START START: I, Jitendra Thomas, examined this patient and my medical decision-making was reviewed with the [employer]ER/PA/Advanced Practice Nurse/Resident Physician. I agree with the documented findings, disposition and treatment plan as described except to the extent set forth below. 31 yo female presents with concerns of positive blood cultures. Seen recently for SOB and had a positive blood culture from a R PICC line which was in place for a MRSA infection from a port in the L chest. Recently diagnosed with a DVT in the L upper extremity. Spiking fevers of Tmax of 101. Took APAP two hours prior to arrival. +abd pain, n/v/d at baseline from her Crohn's disease. Pt tachycardic in the ED. patient stated she was able to receive IV contrast with Solu-Medrol and Benadryl. CTA of the chest does not reveal abscess or PE. Started on daptomycin due to a new allergy to vancomycin. Patient felt improved after observation and medications in the emergency department. She felt comfortable to be admitted to the hospital for continuation of care.
[2017-02-27] MEDS ORDERED: Vancomycin 1,000 MG in D5% in Water 250 ML IVPB ONE (20:10)
[2017-02-27] MEDS ORDERED: 0.9 % Sodium Chloride 1,000 ML IVC ONE (20:12)
[2017-02-27 20:32] LABS: Bilirubin,Urine Small (Negative); Blood,Urine Trace-intact (Negative); Clarity,Urine Clear (Clear); Color,Urine Yellow (Yellow); Glucose,Urine (UA) Normal (Normal); Ketones,Urine Trace mg/dL (Negative); Leukocyte Esterase,Urine Negative (Negative); Nitrite,Urine Negative (Negative); PH,Urine 6.5 pH Units (5.0-8.0); Protein,Urine 30 mg/dL (Neg-Trace); Specific Gravity,Urine >= 1.030 (1.010-1.025); Urobilinogen,Urine Normal (Normal)
[2017-02-27 20:33] LABS: Basophils % 0.4 %; Eosinophils # 0.1 K/mcL (0.0-0.6); Eosinophils % 0.7 %; Hematocrit 37.6 % (35.3-44.9); Hemoglobin 11.6 g/dL (11.5-15.4); Immature Granulocytes % 0.2 % (0-4); Lymphocytes # 2.2 K/mcL (0.6-4.6); Lymphocytes % 26.4 %; Mean Corpuscular HGB Conc 30.9 g/dL (31.6-35.5); Mean Corpuscular Hemoglobin 24.3 pg (28.0-33.3); Mean Corpuscular Volume 78.8 fL (83.0-100.0); Mean Platelet Volume 10.8 fL (9.4-12.4); Monocytes # 0.6 K/mcL (0.0-1.3); Monocytes % 6.7 %; Neutrophils # 5.5 K/mcL (1.6-8.9); Platelet Count 375 K/mcL (140-400); Red Blood Count 4.77 M/mcL (3.82-4.97); Red Cell Distribution Width 17.9 % (11.5-14.5); Segmented Neutrophils % 65.6 %
[2017-02-27 20:36] LABS: INR 1.1; Prothrombin Time 11.5 Seconds (9.4-12.1)
[2017-02-27 20:39] LABS: Activated Partial Thrombo Time 30.8 Seconds (26.0-36.0)
[2017-02-27 20:40] LABS: Hyaline Casts,Urine None Seen per lpf (None-Few); Mucus,Urine Moderate (Few)
[2017-02-27 20:41] LABS: Bacteria,Urine None Seen per hpf (None-Few); Calcium Oxalate Crystals,Urine Present; RBC,Urine 0-3 per hpf (0-3); Squamous Epithelial Cell,Urine Moderate per lpf (None-Few); WBC,Urine 0-3 per hpf (0-3)
[2017-02-27 20:49] LABS: Alanine Aminotransferase 19 Units/L (0-55); Albumin 3.9 g/dL (3.5-5.0); Albumin/Globulin Ratio 1.1 (1.1-2.2); Alkaline Phosphatase 65 Units/L (38-126); Aspartate Amino Transferase 18 Units/L (5-34); BUN/Creatinine Ratio 14 (6-26); Bilirubin,Direct 0.2 mg/dL (0.0-0.5); Bilirubin,Indirect 0.3 mg/dL (0.0-1.2); Bilirubin,Total 0.5 mg/dL (0.2-1.2); Blood Urea Nitrogen 11 mg/dL (7-20); Calcium 9.6 mg/dL (8.6-10.8); Carbon Dioxide 22 mEq/L (19-29); Chloride 107 mEq/L (98-109); Globulin 3.6 g/dL (2.4-3.5); Glucose 93 mg/dL (70-99); Lipase 13 Units/L (8-78); Osmolality,Calculated 285 (280-300); Potassium 3.6 mEq/L (3.5-4.5); Sodium 138 mEq/L (136-145); Total Protein 7.5 g/dL (6.0-8.3); eGFR For African Americans > 60 (> 60); eGFR For Non-African Americans > 60 (> 60)
[2017-02-27] MEDS ORDERED: methylPREDNISolone 125 MG/2 ML VIAL IVP ONE (21:25)
[2017-02-27] MEDS ORDERED: *HR* HYDROmorphone (PF) 1 MG/ML SYRINGE IVP ONE ×2 (21:38→23:08)
[2017-02-27] MEDS ORDERED: *HR* Promethazine 25 MG/ML VIAL IVP ONE (21:38)
[2017-02-27] MEDS ORDERED: DAPTOMYCIN IVPB ONE (22:00)
[2017-02-27] MEDS ORDERED: SODIUM CHLORIDE 0.9% IVPB ONE (22:00)
[2017-02-27] MEDS ORDERED: *HR* HYDROmorphone (PF) 1 MG/ML SYRINGE IVP PRN (23:41)
[2017-02-27] MEDS ORDERED: Naloxone 0.4 MG/ML INJ IVP PRN (23:42)
[2017-02-27] MEDS ORDERED: Acetaminophen 325 MG TABLET PO PRN (23:42)
--- NOTE | 2017-02-27 23:48 | Internal Med History&Physical ---
Date of Encounter: 02/27/17 Time of Encounter: 23:45 Assessment and Plan (1) Gram-positive bacteremia Current visit: No Status: Acute Bacteremia with Staphylococcus sciuri Continue daptomycin IV fluids Consult infectious diseases Patient will be admitted as inpatient, expected stay mantle midnights. Full code. Time spent on this admission 40 minutes. High risk due to bacteremia Famotidine for GI prophylaxis and Lovenox for DVT prophylaxis (2) DVT (deep venous thrombosis) Current visit: Yes Status: Acute Continue Lovenox for left upper extremity DVT Qualifiers: DVT location: upper extremity Laterality: left Chronicity: acute Qualified Code(s): I82.622 - Acute embolism and thrombosis of deep veins of left upper extremity (3) Crohns disease Current visit: No Status: Chronic Stable Not able to his biological agents due to recurrent infections Qualifiers: Gastrointestinal tract location: small and large intestine Digestive disease complication type: without complication Qualified Code(s): K50.80 - Crohn's disease of both small and large intestine without complications (4) Asthma Current visit: No Status: Acute Qualifiers: Asthma severity: mild intermittent Asthma complication type: uncomplicated Qualified Code(s): J45.20 - Mild intermittent asthma, uncomplicated (5) Vancomycin-induced nephrotoxicity Current visit: No Status: Acute (6) History of nephrolithiasis Current visit: No Status: Acute (7) Malnutrition Current visit: No Status: Chronic Severe protein calorie malnutrition May continue TPN, consult nutrition service (8) Port catheter in place Current visit: No Status: Acute (9) Hypothyroidism Current visit: No Status: Chronic Continue levothyroxine Qualifiers: Hypothyroidism type: unspecified Qualified Code(s): E03.9 - Hypothyroidism , unspecified (10) Bacteremia Current visit: Yes Status: Acute Internal Medicine - H&P: HPI Chief complaint: Fever Admitted From: Emergency Dept History of present illness: Ms. Baltazar is a 31 year old female with a past medical history of Crohn's disease on biological agents up until November who comes to the emergency room complaining of fevers on and off, today she had a fever 101.9. For the past few months she has been having multiple issues with chest boards and declines being infected different bacteria including MRSA for which she has not received antibiotics. In the past she developed acute renal failure with vancomycin. A few days ago on February 23 she had blood cultures that were positive for Staphylococcus sciuri, 1 out of 2 bottles. She came today because she has been complaining of chest pain and shortness of breath. CT scan of the chest did not show any pneumonia or pulmonary emboli. She has been on Lovenox for the left upper extremity DVT. Patient had all her reports changed at [facility]. She was started on daptomycin down in the emergency room which she has received in the past. Complains of persistent deep chest pain that was very severe earlier today. Past Med Surg Social Fam HX - Past Medical History Medical history: arthritis, asthma, GERD, GI bleed, kidney stones, renal disease (History of acute renal failure with vancomycin), seizures, thyroid disease (Hypothyroidism), other (Crohn's disease on biological agents, asthma, chronic pain, pneumothorax arthritis, endometriosis status post ablation, GERD, MRSA infections) Psychiatric history: no psych history - Past Surgical History Surgical History: appendectomy, cholecystectomy, colectomy, other (Several ports and declines removed, oriented to femur and ankle) - Social History Smoking Status: Never smoker Smokeless Tobacco Status: No Alcohol use: none Drug use: none - Family History Grandmother Living Status: Hx Family Cardiac Disorders: Yes Hx Family Respiratory Disorders: Yes Hx Family Cancer: No Hx Family GI Disorders: No Hx Family Endocrine Disorder: No Hx Family Neuromuscular Disorders: No Hx Family Neurologic Disorders: No Hx Family HEENT Disorders: No Hx Family Autoimmune Disorders: No - Additional Family History Additional family history: Sister with melanoma, mother with osteoporosis and father with migraines Internal Medicine - H&P: Meds Levothyroxine [Synthroid] 75 mcg PO DAILY 08/04/15 [History] Mesalamine [Lialda] 2.4 gm PO DAILY 09/30/15 [History] Ondansetron ODT [Zofran ODT] 4 mg SL Q6HR PRN 08/11/16 [History] Albuterol Sulfate [Albuterol Inhaler] 2 puff IH Q6H PRN 09/28/16 [History] OxyCODONE Immed Rel [Roxicodone 15 MG] 15 mg PO Q4H PRN #30 tablet 10/30/16 [Rx] Pnv95/Ferrous Fumarate/FA [Gnp Vitamins Tablet] 1 tab PO DAILY [History] Promethazine HCl [Phenergan] 25 mg IJ BID PRN 12/05/16 [History] Vedolizumab [Entyvio (For Outpatient Infusion)] 300 mg IV Q8W 12/05/16 [History] Allergies Iodinated Contrast Media - Oral and [Iodinated Contrast Media - IV Dye] Allergy (Verified 02/27/17 19:27) Difficulty Breathing ketorolac [From Toradol] Allergy (Verified 02/27/17 19:27) Difficulty Breathing metoprolol [From Lopressor] Allergy (Verified 02/27/17 19:27) Difficulty Breathing morphine Allergy (Verified 02/27/17 19:27) Difficulty Breathing vancomycin Allergy (Verified 02/27/17 19:27) Rash Melyssa rash at beginning of infusion. adalimumab [From Humira] Adverse Reaction (Verified 02/27/17 19:27) Seizure All Systems PM: A 10-system review of systems was performed and is negative for pertinent findings except as documented above in the HPI. Review of systems: Complains of chronic abdominal pain, no dysuria, other systems out of the Ten reviewed were negative - Constitutional Vitals: Temp Pulse Resp BP Pulse Ox 98.7 F 117 20 130/89 99 02/27/17 19:27 02/27/17 23:41 02/27/17 23:41 02/27/17 23:41 02/27/17 23:41 General appearance: Present: A&O X 3, loss of weight - Head Head exam: Present: atraumatic, normocephalic - Eye Eye exam: Present: PERRL, conjuntiva pink, sclera anicteric Pupils: Present: PERRL - Neck Neck exam general surgery: Present: supple, trachea midline. Absent: lymphadenopathy - Respiratory Respiratory exam: Present: CTAB. Absent: accessory muscle use, rales, rhonchi, wheezes Additional comments: Right upper chest port without signs of infection - Cardiovascular Cardiovascular exam: Present: RRR, +S1, +S2. Absent: diastolic murmur, gallop, rubs, systolic murmur - GI/Abdominal GI/Abdominal exam: Present: normal bowel sounds, soft, tenderness (Diffuse abdominal tenderness, no rebound), no peritoneal signs. Absent: distended, rebound - Extremities Exam Extremities exam: Present: warm, radial pulses palpable and symetrical. Absent : calf tenderness, cyanotic, pedal edema - Neurological Exam Neurological exam: Present: CN II-XII intact, oriented X3, no focal deficits. Absent: pronater drift, facial droop, speech deficit - Skin Skin exam: Present: dry, intact Internal Med - H&P Results - Labs CBC & Chem 7: 02/27/17 20:17 02/27/17 20:17 Labs: Short CBC 02/27/17 Range/Units 20:17 WBC 8.3 (4.3-11.1) K/mcL Hgb 11.6 (11.5-15.4) g/dL Hct 37.6 (35.3-44.9) % Plt Count 375 (140-400) K/mcL Neutrophils # 5.5 (1.6-8.9) K/mcL BMP 02/27/17 20:17 Sodium 138 Potassium 3.6 Chloride 107 Carbon Dioxide 22 BUN 11 Creatinine 0.79 Glucose 93 Calcium 9.6 Cardiac Enzymes 02/27/17 Range/Units 20:17 Troponin I 0.00 (0-0.03) ng/mL Liver Function 02/27/17 Range/Units 20:17 Total Bilirubin 0.5 (0.2-1.2) mg/dL Direct Bilirubin 0.2 (0.0-0.5) mg/dL AST 18 (5-34) Units/L ALT 19 (0-55) Units/L Alkaline Phosphatase 65 (38-126) Units/L Albumin 3.9 (3.5-5.0) g/dL Urine 02/27/17 Range/Units 20:22 Urine Color Yellow (Yellow) Urine Clarity Clear (Clear) Urine pH 6.5 (5.0-8.0) pH Units Ur Specific [place] >= 1.030 H (1.010-1.025) Urine Protein 30 H (Neg-Trace) mg/dL Urine Glucose (UA) Normal (Normal) mg/dL - Impressions ITS Impressions Chest X-Ray 02/27/17 20:10 IMPRESSION: No acute process. D/ / Ulysses Veloz MD / Ulysses Veloz MD Interpreting Provider: Ulysses Veloz MD Chest CTA 02/27/17 21:26 IMPRESSION: 1. No evidence of pulmonary embolus. D/ / 02/27/2017 22:46:08 Oscar Dominguez MD / [facility] Interpreting Provider: Oscar Dominguez MD
[2017-02-28] MEDS: *HR* HYDROmorphone 2 MG/ML SYRINGE IVP PRN ×7 (02:30→23:31)
[2017-02-28] MEDS: *HR* Enoxaparin 40 MG/0.4 ML SYRINGE SQ SCH ×2 (04:46→17:03)
[2017-02-28] MEDS: *HR* OxyCODONE Immed Rel 15 MG TABLET PO PRN ×2 (04:46→22:22)
[2017-02-28] MEDS: 0.9 % Sodium Chloride 1,000 ML IVC SCH ×2 (04:47→15:14)
[2017-02-28] MEDS: *HR* Promethazine 25 MG/ML VIAL IVP PRN ×3 (04:47→22:22)
[2017-02-28 04:49] LABS: Basophils % 0.2 %; Hematocrit 35.1 % (35.3-44.9); Hemoglobin 10.9 g/dL (11.5-15.4); Immature Granulocytes % 0.4 % (0-4); Lymphocytes # 0.6 K/mcL (0.6-4.6); Lymphocytes % 5.2 %; Mean Corpuscular HGB Conc 31.1 g/dL (31.6-35.5); Mean Corpuscular Hemoglobin 24.8 pg (28.0-33.3); Mean Platelet Volume 10.7 fL (9.4-12.4); Monocytes # 0.1 K/mcL (0.0-1.3); Monocytes % 0.4 %; Neutrophils # 10.8 K/mcL (1.6-8.9); Platelet Count 338 K/mcL (140-400); Red Blood Count 4.39 M/mcL (3.82-4.97); Red Cell Distribution Width 18.1 % (11.5-14.5); Segmented Neutrophils % 93.8 %
[2017-02-28 05:01] LABS: BUN/Creatinine Ratio 15 (6-26); Blood Urea Nitrogen 11 mg/dL (7-20); Calcium 8.9 mg/dL (8.6-10.8); Carbon Dioxide 21 mEq/L (19-29); Chloride 109 mEq/L (98-109); Glucose 113 mg/dL (70-99); Osmolality,Calculated 286 (280-300); Potassium 3.8 mEq/L (3.5-4.5); Sodium 138 mEq/L (136-145); eGFR For African Americans > 60 (> 60); eGFR For Non-African Americans > 60 (> 60)
[2017-02-28] MEDS: Famotidine 20 MG TABLET PO SCH ×2 (08:44→15:14)
[2017-02-28] MEDS ORDERED: MESALAMINE 2.4 GM PO SCH (09:00)
--- NOTE | 2017-02-28 13:01 | Infectious Disease Consult ---
Date of Encounter: 02/28/17 Time of Encounter: 13:01 Assessment and Plan (1) Bacteremia Status: Acute Assessment and plan: Causative organism S. sciuri. Source likely infected PICC line vs. contaminant. Blood culture drawn 02/23/17 from the PICC line was positive 1/1 set. Blood culture drawn 02/23/17 from a peripheral stick was negative 1/ set. PICC line was removed 02/24/17. The patient has been afebrile since admission. Her WBC is up a little today, but she did receive Solu-Medrol prior to her CTA yesterday. Clinically, the patient does not appear to have an acute infection. Repeat blood cultures drawn 02/27/17 are pending x 2 sets. Await repeat cultures. Continue Daptomycin 4mg/kg IV daily for now. If repeat cultures are negative, will likely treat for 7 days and discontinue antibiotics. Monitor renal function and dose-adjust antibiotics. Baseline CK level 47. (2) Chest pain Status: Acute Assessment and plan: Etiology unclear, but likely secondary to increased use of the LUE after recent traumatic removal of embedded a-port to the left upper chest. Clinically, the site does not appear infected. CXR negative. CTA of the chest negative. VQ scan showed low probability for PE. Pain management as outlined by the primary team. Qualifiers: Chest pain type: unspecified Qualified Code(s): R07.9 - Chest pain, unspecified (3) Tachycardia Status: Acute Assessment and plan: Etiology unclear. Likely unrelated to infectious etiology. Consider cardiology consult. (4) DVT (deep venous thrombosis) Status: Acute Assessment and plan: Location: LUE as diagnosed at [facility]. Continue Lovenox injections. Management per the primary team. Qualifiers: DVT location: upper extremity Affected thrombotic vein of extremity: unspecified vein of extremity Laterality: left Chronicity: acute Qualified Code(s): I82.622 - Acute embolism and thrombosis of deep veins of left upper extremity (5) Crohns disease Status: Chronic Assessment and plan: Follows with [facility]. Currently on Entyvio infusion regimen. Qualifiers: Gastrointestinal tract location: small and large intestine Digestive disease complication type: without complication Qualified Code(s): K50.80 - Crohn's disease of both small and large intestine without complications (6) Anemia Status: Chronic Qualifiers: Anemia type: iron deficiency Iron deficiency anemia type: chronic blood loss Qualified Code(s): D50.0 - Iron deficiency anemia secondary to blood loss (chronic) Infectious Disease HPI - Data of Consult Patient: known to practice within the last 3 years Consult date: 02/28/17 Requesting Physician: Rayne Bautista Primary Care Provider: Jose David Hebert DO - Consult Narrative Reason for consult: Bacteremia History of present illness: Ms. Baltazar is a 31 year old female with an extensive past medical history most notably positive for Crohn's disease with malnutrition requiring chronic TPN, GERD, GI bleed, and acute kidney injury secondary to vancomycin. The patient was admitted to the hospital February 27 for bacteremia. We are consulted February 28 for further evaluation and treatment recommendations regarding bacteremia. The patient is a 31-year-old female, known to the infectious disease service as we have been consulted on her case in the past. The patient has an extensive history that directly relates to her Crohn's disease which has been more severe since August 2016. We were consulted on her case previously for MRSA bacteremia. At that time, the patient was treated with 4 weeks of IV antibiotics which were managed by the GI team. At that time, the patient became very toxic and suffered an acute kidney injury. The left upper chest a-port was left in place due to the patient's requirement for prolonged parenteral nutrition. The patient states she was doing well until January when she passed out while visiting a friend about [facility]. She states her hemoglobin was down to 6.6 her colon was "very inflamed." Blood cultures drawn during the hospital stay were positive for Escherichia coli and Klebsiella. Additionally, cultures drawn from the left upper chest a port were positive for MRSA. The decision was made to have the a port removed and a PICC line was placed. Patient states that after her PICC line was placed she continued to have pain in the right upper extremity and thought that the line was infected due to redness and warmth of the skin under the dressing. She states she was treated with IV daptomycin and Rocephin at home. On February 18, the patient underwent insertion of a port to the right upper chest. She came back to the ER on February 23 with complaints of chest pain on the left side and fever for 101 at home. A VQ scan was completed that was negative for pulmonary embolism. Blood cultures were obtained 2 sets, apparently one from the PICC line and one from a peripheral stick. The blood culture drawn from the PICC line came back positive for staph sciuri. The patient was called back and advised to come back to the ER for admission. In between the time the patient was seen in our emergency department and when she was called to come back for admission, the patient was seen about [facility] at the advisement of her surgeon. She underwent a left upper extremity DVT study that was positive. She was admitted to the hospital overnight to initiate subcutaneous Lovenox injections. I called [facility] and spoke to the micro-lab. They state the patient did have blood cultures drawn 2 sets from a peripheral stick and there are no growth to date this time. Additionally, the patient's PICC line was discontinued the day after she was originally seen in our emergency department. Currently, the patient is on IV daptomycin. We've been asked to evaluate it further recommendations. During my exam today, the patient endorses a history as stated above. Since admission, the patient has undergone a CT scan of the chest that was negative. Blood cultures were obtained 2 sets are currently pending, one from the right upper chest a-port and one from a peripheral stick. The patient states that she continues to have subjective fevers and chills and states that her fever was 101 at home. She denies any headache or neck pain. She denies any congestion, earache, or sore throat. She reports pain "deep inside" to her left chest that is nonreproducible. She reports intermittent sharp pains as well. She denies any shortness of breath or cough. She reports chronic nausea, vomiting, and abdominal pain secondary to her Crohn's and states this is all at the baseline. She denies pain in any of her extremities at this time. She denies any oral thrush or new skin lesions. CC: Rayne Bautista Past Med Surg Social Fam HX - Past Medical History Attestation: Yes The following information was validated with the patient. Source: patient, old records reviewed, nursing notes reviewed Medical history: arthritis, asthma, GERD, GI bleed, kidney stones, renal disease , seizures, thyroid disease, other Psychiatric history: no psych history - Past Surgical History Surgical History: appendectomy, cholecystectomy, colectomy, other - Social History Smoking Status: Never smoker Smokeless Tobacco Status: No Alcohol use: none Drug use: none Occupational status: unemployed Current living situation: Home - Independent Activity Level: Independent ambulation Recent Out of Country Travel Within the Last 8 Weeks: No Exposure or Possible Exposure to Illness During Travel: No - Family History Grandmother Living Status: Hx Family Cardiac Disorders: Yes Hx Family Respiratory Disorders: Yes Hx Family Cancer: No Hx Family GI Disorders: No Hx Family Endocrine Disorder: No Hx Family Neuromuscular Disorders: No Hx Family Neurologic Disorders: No Hx Family HEENT Disorders: No Hx Family Autoimmune Disorders: No Infectious Disease-CN:Meds Levothyroxine [Synthroid] 75 mcg PO DAILY 08/04/15 [History] Mesalamine [Lialda] 2.4 gm PO DAILY 09/30/15 [History] Ondansetron ODT [Zofran ODT] 4 mg SL Q6HR PRN 08/11/16 [History] Albuterol Sulfate [Albuterol Inhaler] 2 puff IH Q6H PRN 09/28/16 [History] OxyCODONE Immed Rel [Roxicodone 15 MG] 15 mg PO Q4H PRN #30 tablet 10/30/16 [Rx] Promethazine HCl [Phenergan] 25 mg IJ Q6HR PRN 12/05/16 [History] Vedolizumab [Entyvio (For Outpatient Infusion)] 300 mg IV Q8W 12/05/16 [History] DiphenhydraMINE [Benadryl] 50 mg IV Q4HR PRN 02/28/17 [History] Enoxaparin [Lovenox] 60 mg SQ DAILY 02/28/17 [History] Ferric Carboxymaltose [Injectafer (For Outpatient Infusion)] 750 mg IV AD [History] Allergies Iodinated Contrast Media - Oral and [Iodinated Contrast Media - IV Dye] Allergy (Verified 02/27/17 19:27) Difficulty Breathing ketorolac [From Toradol] Allergy (Verified 02/27/17 19:27) Difficulty Breathing metoprolol [From Lopressor] Allergy (Verified 02/27/17 19:27) Difficulty Breathing morphine Allergy (Verified 02/27/17 19:27) Difficulty Breathing vancomycin Allergy (Verified 02/27/17 19:27) Rash Melyssa rash at beginning of infusion. adalimumab [From Humira] Adverse Reaction (Verified 02/27/17 19:27) Seizure All systems: reviewed and no additional remarkable complaints except as stated Exam - Constitutional Vitals: Temp Pulse Resp BP Pulse Ox 98.3 F 124 14 119/71 98 02/28/17 11:12 02/28/17 11:12 02/28/17 11:12 02/28/17 11:12 02/28/17 11:12 General appearance: average body habitus, cooperative, no acute distress - Head Head exam: Present: atraumatic, normal inspection, normocephalic - Eye Eye exam: Present: EOMI, normal appearance Pupils: Present: normal accommodation, PERRL - ENT ENT exam: Present: mucous membranes moist - Neck Neck exam: Present: normal inspection - Respiratory Respiratory exam: Present: CTAB. Absent: rales, respiratory distress, rhonchi, wheezes - Cardiovascular Cardiovascular exam: Present: RRR, +S1, +S2 - GI/Abdominal GI/Abdominal exam: Present: normal bowel sounds, soft, tenderness (Generalized) . Absent: distended - Extremities Exam Extremities exam: Present: normal inspection. Absent: joint swelling, tenderness - Neurological Exam Neurological exam: Present: alert, oriented X3, no focal deficits, strengths equal and symetr throughout - Psychiatric Psychiatric exam: Present: normal affect, normal mood - Skin Skin exam: Present: dry, intact, normal color, warm - Additional findings Additional findings: A-port noted to the right upper chest, accessed with Bledsoe needle with transparent dressing C/D/I. Well-healed surgical scar noted to the left upper chest without tenderness, redness, or drainage. Infectious Disease CN: Results - Labs CBC & Chem 7: 03/01/17 06:15 03/01/17 06:15 Consult Discharge Plan - Plan Referrals: Jose David Hebert DO [Primary Care Provider] -
--- NOTE | 2017-02-28 13:55 | Internal Med Progress Note ---
<Jose David Hebert - Last Filed: 02/28/17 15:06> Date of Encounter: 02/28/17 Time of Encounter: 10:00 - Assessment and plan (1) Chest pain Current Visit: Yes Status: Acute Assessment and plan: Patient presents with left-sided chest pain etiology unknown at this time. - Troponin was 0.00 - EKG was normal sinus rhythm Risk factors: Recent MRSA bacteremia recurrence gram-positive bacteremia recently treated with multiple weeks of daptomycin which runs the risk of chest pain as a side effect. Patient is also tachycardic she has baseline tachycardia but has been more so since admission. - DAVON performed at [facility] without any findings of endocarditis. Differential diagnosis: Drug-induced pericarditis, side effect daptomycin, pulmonary embolism, muscle skeletal pain, myocarditis. Low suspicion for acute coronary syndrome. - CTA without findings of pulmonary embolism - Patient has known left upper extremity DVT, currently on Lovenox twice a day. Plan: - Transthoracic echocardiogram Qualifiers: Chest pain type: unspecified Qualified Code(s): R07.9 - Chest pain, unspecified (2) Gram-positive bacteremia Current Visit: No Status: Acute Assessment and plan: BC x1 growth for S. sciuri. Source may be infected PICC line versus contaminant. Patient was recently treated for MRSA bacteremia and Klebsiella and Escherichia coli bacteremia. Recent urine culture positive for MRSA post daptomycin treatments- she was prescribed Bactrim outpatient but only completed 2 doses. Patient has reoccurrence of MRSA post daptomycin treatment there must be increased concern for possible colonization or seeding. - Afebrile since admission, tachycardia, WBC is 11.5 and an immunocompromised patient. Peripheral blood cultures 2 drawn last evening, blood culture from PICC line drawn with results pending. - WBC elevation may be secondary to Solu-Medrol dosing prior to CT as patient has allergy to contrast dye. - Infectious disease has been consult and is evaluated Mrs. Baltazar is recommended continuation of daptomycin 4 mg/kg IV daily for now. - CK drawn has a level of 47. Plan: - Continue current antibiotic coverage - Blood cultures drawn with results pending. - Continue to monitor renal function as adjusting antibiotics. - Transthoracic echocardiogram with Gram-positive bacteremia in an immunocompromised patient. (3) Crohns disease Current Visit: No Status: Chronic Assessment and plan: Known history of Crohn's disease for which she is seen frequently for outpatient follow-up. Crohn's disease associated with frequent diarrhea, nausea vomiting previous abdominal CT was consistent with colitis. - Patient is a current port in place. Currently receiving scheduled Entyvio infusions and on Mesalamine 2.4mg PO daily. -Also receiving scheduled benadryl and phenergan scheduled. - Zofran PRN - Receiving TPN for nutritional supplementation. Qualifiers: Gastrointestinal tract location: small and large intestine Digestive disease complication type: without complication Qualified Code(s): K50.80 - Crohn's disease of both small and large intestine without complications (4) Tachycardia Current Visit: No Status: Acute Assessment and plan: Patient is tachycardia, noted in the outpatient setting. Heart rate is been up to 140s since admission currently 120s. She has no allergies to metoprolol with throat swelling. Given the chronicity of this patient's tachycardia may be related to underlying medical condition. Plan: - Treat underlying medical condition currently. - TSH ordered as patient has known history of hypothyroidism but currently is tachycardic with weight loss. (5) Anemia Current Visit: No Status: Chronic Assessment and plan: Microcytic anemia with an MCV of 80. Likely secondary to malnutrition. Plan: - Iron studies - Continue to monitor hemoglobin and hematocrit daily. Qualifiers: Anemia type: iron deficiency Iron deficiency anemia type: chronic blood loss Qualified Code(s): D50.0 - Iron deficiency anemia secondary to blood loss (chronic) (6) Malnutrition Current Visit: No Status: Chronic Assessment and plan: Malnutrition secondary to chronic nausea vomiting and diarrhea. Patient receives TPN nutritional supplementation. Plan: - Continue TPN - Dietary consult. (7) DVT (deep venous thrombosis) Current Visit: Yes Status: Acute Assessment and plan: Patient has a known left upper extremity DVT likely secondary to traumatic removal of port. - CT of the chest does not demonstrate PE - V/Q scan performed February 23 low suspicion for PE. Plan: - Continue Lovenox DVT dosing twice a day. Qualifiers: DVT location: upper extremity Laterality: left Chronicity: acute Qualified Code(s): I82.622 - Acute embolism and thrombosis of deep veins of left upper extremity (8) DVT prophylaxis Current Visit: No Status: Acute Assessment and plan: Patient receiving Lovenox DVT dosing twice a day. (9) Hypothyroidism Current Visit: Yes Status: Acute Assessment and plan: Continue home levothyroxine dose. Qualifiers: Qualified Code(s): E03.9 - Hypothyroidism, unspecified - Subjective Interval history: Ms. Baltazar 31F with hx of crohn's disease seen and evaluated at patient bedside this am. She is awake alert and interactive and sitting up on bedside. She admits to intermittent occasional left-sided chest pain has been present for 1 day. Exacerbating factors are positional but no specific position. Sometimes she has relief when laying flat sometimes she has increasing discomfort. She has felt more tachycardic than usual. She has had increase in nausea and vomiting, chills and occasional subjective fever. Still continues to struggle with by mouth intake and was unable to complete her recently prescribed dose of Bactrim. During discussion she recaps on the course of events, and her frequent recurrent infections. She completed her recent daptomycin prescription for MRSA bacteremia and Rocephin for Escherichia coli and Klebsiella bacteremias. She had her current port placed last week but before this had a urinalysis positive for MRSA for which she is prescribed Bactrim. Due to her vomiting she was unable to complete more than 2 days of Bactrim. She thought that may be she had MRSA in her urine because she had blood in her urine and that may be the MRSA was in her blood. When discussing her current DVT of her left upper extremity she discussed how she had a very chilled medical experience and they had to cut out the last port which was then followed by a DVT of the left upper extremity. - Constitutional Vitals: Temp Pulse Resp BP Pulse Ox 98.3 F 124 14 119/71 98 02/28/17 11:12 02/28/17 11:12 02/28/17 11:12 02/28/17 11:12 02/28/17 11:12 General appearance: Present: A&O X 3, loss of weight - Head Head exam: Present: atraumatic, normocephalic - Eye Eye exam: Present: PERRL, conjuntiva pink, sclera anicteric Pupils: Present: PERRL - ENT ENT exam: Present: mucous membranes moist - Neck Neck exam general surgery: Present: supple, trachea midline. Absent: lymphadenopathy - Respiratory Respiratory exam: Present: CTAB. Absent: accessory muscle use, rales, rhonchi, wheezes - Cardiovascular Cardiovascular exam: Present: +S1, +S2, tachycardia - GI/Abdominal GI/Abdominal exam: Present: normal bowel sounds, soft, no peritoneal signs. Absent: distended, tenderness - Extremities Exam Extremities exam: Present: warm, radial pulses palpable and symetrical. Absent : calf tenderness, cyanotic, pedal edema - Neurological Exam Neurological exam: Present: alert, oriented X3, no focal deficits. Absent: pronater drift, facial droop, speech deficit - Psychiatric Psychiatric exam: Present: normal affect, normal mood Internal Medicine: Result - Labs CBC & Chem 7: 02/28/17 03:00 02/28/17 03:00 Labs: Short CBC 02/28/17 Range/Units 03:00 WBC 11.5 H (4.3-11.1) K/mcL Hgb 10.9 L (11.5-15.4) g/dL Hct 35.1 L (35.3-44.9) % Plt Count 338 (140-400) K/mcL Neutrophils # 10.8 H (1.6-8.9) K/mcL BMP 02/28/17 03:00 Sodium 138 Potassium 3.8 Chloride 109 Carbon Dioxide 21 BUN 11 Creatinine 0.71 Glucose 113 H Calcium 8.9 - ABG Interpretation ABG results: PT/INR, D-dimer PT 11.5 Seconds (9.4-12.1) 02/27/17 20:17 Consult Discharge Plan - Plan Referrals: Jose David Hebert DO [Primary Care Provider] - <Rayne Bautista E - Last Filed: 02/28/17 17:55> Date of Encounter: 02/28/17 - Constitutional Vitals: Temp Pulse Resp BP Pulse Ox 98.3 F 124 14 119/71 98 02/28/17 11:12 02/28/17 11:12 02/28/17 11:12 02/28/17 11:12 02/28/17 11:12 Internal Medicine: Result - Labs CBC & Chem 7: 02/28/17 03:00 02/28/17 03:00 Labs: Short CBC 02/28/17 Range/Units 03:00 WBC 11.5 H (4.3-11.1) K/mcL Hgb 10.9 L (11.5-15.4) g/dL Hct 35.1 L (35.3-44.9) % Plt Count 338 (140-400) K/mcL Neutrophils # 10.8 H (1.6-8.9) K/mcL BMP 02/28/17 03:00 Sodium 138 Potassium 3.8 Chloride 109 Carbon Dioxide 21 BUN 11 Creatinine 0.71 Glucose 113 H Calcium 8.9 - ABG Interpretation ABG results: PT/INR, D-dimer PT 11.5 Seconds (9.4-12.1) 02/27/17 20:17 - Attending Attestation I examined this patient and reviewed laboratory, imaging and all diagnostic data. My medical decision-making was reviewed with Dr Hebert - Resident Physician. I agree with the documented findings, disposition and treatment plan as described above
[2017-02-28] MEDS ORDERED: *HR* HYDROmorphone 2 MG/ML SYRINGE IVP PRN (15:06)
[2017-02-28] MEDS: MESALAMINE PO SCH (15:36)
[2017-02-28 16:21] LABS: Folate 8.2 ng/mL (7.0-31.4)
[2017-02-28] MEDS ORDERED: 0.9 % Sodium Chloride 1,000 ML IVC ONE (16:37)
[2017-02-28 17:36] LABS: % Iron Saturation 7 % (15-50); Iron 31 mcg/dL (50-170); Transferrin 324 mg/dL (180-382)
[2017-02-28 17:55] LABS: Ferritin 8 ng/ml (5-204)
--- NOTE | 2017-02-28 19:47 | Electrocardiograph Report ---
[address] [address] Test Date: 2017-02-27 Pat Name: Dayami Baltazar Department: 102 Room: 3A63 Gender: F Shirt Maker: : 1985 Requested By: Cuhy Kahn Order Number: [id number] Reading MD: Marty Lloyd MD Measurements Intervals [place] Rate: 107 P: 66 FL: 131 QRS: 28 QRSD: 84 T: 44 QT: 318 QTc: 380 Interpretive Statements SINUS TACHYCARDIA Electronically Signed On 02-28-2017 19:45:04 EDT by Marty Lloyd MD
[2017-02-28] MEDS: SODIUM CHLORIDE 0.9% IVPB SCH (22:15)
[2017-02-28] MEDS: DAPTOMYCIN IVPB SCH (22:15)
[2017-03-01] MEDS: *HR* HYDROmorphone 2 MG/ML SYRINGE IVP PRN ×7 (02:54→22:54)
[2017-03-01] MEDS: *HR* Promethazine 25 MG/ML VIAL IVP PRN ×2 (06:14→13:01)
[2017-03-01] MEDS: *HR* Enoxaparin 40 MG/0.4 ML SYRINGE SQ SCH ×2 (06:15→18:19)
[2017-03-01] MEDS: 0.9 % Sodium Chloride 1,000 ML IVC SCH ×2 (06:21→19:48)
[2017-03-01 06:32] LABS: Basophils % 0.6 %; Eosinophils % 0.8 %; Hematocrit 27.3 % (35.3-44.9); Immature Granulocytes % 0.2 % (0-4); Lymphocytes # 2.1 K/mcL (0.6-4.6); Lymphocytes % 39.8 %; Mean Corpuscular HGB Conc 30.8 g/dL (31.6-35.5); Mean Corpuscular Hemoglobin 24.6 pg (28.0-33.3); Mean Corpuscular Volume 79.8 fL (83.0-100.0); Mean Platelet Volume 10.1 fL (9.4-12.4); Monocytes # 0.4 K/mcL (0.0-1.3); Monocytes % 7.9 %; Neutrophils # 2.6 K/mcL (1.6-8.9); Platelet Count 239 K/mcL (140-400); Red Blood Count 3.42 M/mcL (3.82-4.97); Red Cell Distribution Width 18.2 % (11.5-14.5); Segmented Neutrophils % 50.7 %
[2017-03-01 06:37] LABS: Hemoglobin 8.4 g/dL (11.5-15.4)
[2017-03-01 06:42] LABS: Alanine Aminotransferase 9 Units/L (0-55); Albumin/Globulin Ratio 1.2 (1.1-2.2); Alkaline Phosphatase 44 Units/L (38-126); Aspartate Amino Transferase 10 Units/L (5-34); BUN/Creatinine Ratio 21 (6-26); Bilirubin,Total 0.2 mg/dL (0.2-1.2); Blood Urea Nitrogen 13 mg/dL (7-20); Calcium 8.4 mg/dL (8.6-10.8); Carbon Dioxide 26 mEq/L (19-29); Chloride 108 mEq/L (98-109); Globulin 2.5 g/dL (2.4-3.5); Glucose 83 mg/dL (70-99); Osmolality,Calculated 285 (280-300); Potassium 3.8 mEq/L (3.5-4.5); Sodium 138 mEq/L (136-145); Triglycerides 83 mg/dL (< 150); eGFR For African Americans > 60 (> 60); eGFR For Non-African Americans > 60 (> 60)
[2017-03-01 06:45] LABS: Albumin 2.9 g/dL (3.5-5.0); Total Protein 5.4 g/dL (6.0-8.3)
[2017-03-01] MEDS: *HR* OxyCODONE Immed Rel 15 MG TABLET PO PRN (08:10)
[2017-03-01] MEDS: Famotidine 20 MG TABLET PO SCH ×2 (08:10→16:19)
[2017-03-01] MEDS: MESALAMINE PO SCH (08:12)
--- NOTE | 2017-03-01 10:07 | ECHO - Doppler Report ---
Echocardiogram Name: Dayami Baltazar Date of Study: 02/28/2017 Date: 1985 Ht: 61.0 in Medical Record#: [id number] Age: 31 Wt: 96.0 lb Gender: Female BSA: 1.38 Order #: [id number] Location: [facility] Room #: 3A63 Reading Physician: Felicity Verma DO Transmission Superintendent: Katie Cortez RDCS Ordering Physician: Jose David Hebert DO Primary Physician: Same as Ordering Provider Indications: Staph bacteremia, Chest pain Impressions: LVEF 65%. Normal left ventricular size and systolic function. Normal diastolic function of the left ventricle. Normal right ventricular size and function. No significant valvular dysfunction. No pulmonary hypertension. Valvular vegetations are not observed on this study. Left Ventricular Wall Motion: Rest Echo Findings All wall segments showed normal motion. Findings: Study Quality * Technically adequate exam. ECG Findings * Sinus tachycardia. Left Ventricle * LVEF 65%. * Normal LV chamber size, wall thickness and function. * Normal left ventricular diastolic function. Right Ventricle * Normal right ventricular structure and function. Left Atrium * Normal left atrial size. Aortic Valve * No aortic regurgitation. * Aortic valve not well visualized. * No aortic stenosis. Mitral Valve * Normal mitral valve structure. * No mitral regurgitation. * No mitral stenosis. Tricuspid Valve * Normal tricuspid valve structure. * Trace tricuspid regurgitation. * Estimated RA pressure is 3 mmHg. * Estimated RVSP is 19 mmHg. * No pulmonary hypertension. Pulmonic Valve * Pulmonic valve is not well visualized. * No pulmonic stenosis. * No pulmonic regurgitation. Pulmonary Artery * Pulmonary artery not well visualized. Right Atrium * Normal right atrial size. Interatrial Septum * No evidence of PFO by color Doppler. IVC * Normal IVC dimensions and inspiratory collapse. Pericardium * There is no pericardial effusion present. Aorta * Normally sized aortic root. History Family History of CAD 09/01/2016 a Previous Echo was performed. Measurements: BP: 119/ 71 2D Normal Values RVIDd: 1.52 cm <2.7 cm IVSd: .79 cm 0.6 - 1.0 cm LVIDd: 4.20 cm 3.7 - 5.6 cm LVPWd: .65 cm 0.6 - 1.1 cm LVIDs: 2.09 cm 1.5 - 3.6 cm AO: 2.00 cm < 4.0 cm LA: 2.40 cm 2.0 - 4.0cm %FS: 50.20 cm >25 % LA volume: 18 Mitral Valve Peak E:.83 m/sec Peak A:.50 m/sec E/A Ratio:1.7 Peak E' Lat Woody:15.6 cm/s Peak E' Med Woody:13.7 cm/s E/E' Lat Ratio:5.3 E/E' Med Ratio:6.1 Tricuspid Valve TV Regurg Peak Grad: 16.00mmHg TV Regurg Peak Woody: 2.01m/sec Updated by Felicity Verma on 03/01/2017 10:02:21 AM electronically signed on 03/01/2017 10:03:05 AM with status of [employer]: 1=Normal, 2=Hypokinesis, 3=Akinesis, 4=Dyskinesis, 5=Aneurysmal, 6=Hyperkinetic, X=Not Visualized (Blank)=Missing
[2017-03-01] MEDS ORDERED: D10% in Water 500 ML IVC PRN (11:21)
--- NOTE | 2017-03-01 12:00 | Infectious Disease Progress No ---
Date of Encounter: 03/01/17 Time of Encounter: 11:58 - Assessment and Plan (1) Bacteremia Current Visit: Yes Status: Acute Causative organism S. sciuri. Source likely infected PICC line vs. contaminant. Blood culture drawn 02/23/17 from the PICC line was positive 1/1 set. Blood culture drawn 02/23/17 from a peripheral stick was negative 1/ set. PICC line was removed 02/24/17. The patient has been afebrile since admission. Her WBC went up a little yesterday, but she did receive Solu-Medrol prior to her CTA yesterday. It has normalized today. Clinically, the patient does not appear to have an acute infection. Repeat blood cultures drawn 02/27/17 are NGTD x 2 sets. The patient had not received any IV antibiotics prior to repeat blood cultures being drawn. Continue Daptomycin 4mg/kg IV daily for now. If repeat cultures remain negative, will likely treat for 7 days and discontinue antibiotics. Monitor renal function and dose-adjust antibiotics. Baseline CK level 47. (2) Chest pain Current Visit: Yes Status: Acute Etiology unclear, but likely secondary to increased use of the LUE after recent traumatic removal of embedded a-port to the left upper chest. Clinically, the site does not appear infected. CXR negative. CTA of the chest negative. VQ scan showed low probability for PE. TTE negative. Pain management as outlined by the primary team. Qualifiers: Chest pain type: unspecified Qualified Code(s): R07.9 - Chest pain, unspecified (3) Tachycardia Current Visit: No Status: Acute Etiology unclear. Likely unrelated to infectious etiology. Consider cardiology consult. Management per the primary team. (4) DVT (deep venous thrombosis) Current Visit: Yes Status: Acute Location: LUE as diagnosed at [facility]. Continue Lovenox injections. Management per the primary team. Qualifiers: DVT location: upper extremity Affected thrombotic vein of extremity: unspecified vein of extremity Laterality: left Chronicity: acute Qualified Code(s): I82.622 - Acute embolism and thrombosis of deep veins of left upper extremity (5) Crohns disease Current Visit: No Status: Chronic Follows with [facility]. Currently on Entyvio infusion regimen. Qualifiers: Gastrointestinal tract location: small and large intestine Digestive disease complication type: without complication Qualified Code(s): K50.80 - Crohn's disease of both small and large intestine without complications (6) Anemia Current Visit: No Status: Chronic Qualifiers: Anemia type: iron deficiency Iron deficiency anemia type: chronic blood loss Qualified Code(s): D50.0 - Iron deficiency anemia secondary to blood loss (chronic) - Subjective Interval history: Patient seen and examined. No acute events noted overnight. The patient states she feels about the same today. Continues to complain of pain in the left upper chest and chronic abdominal pain. She denies any fevers or chills or rigors. She denies any headache or neck pain. She denies any shortness of breath or cough. She does report chronic nausea and states she is not able to keep any of her breakfast or medications down. She reports chronic diarrhea, but denies blood or mucus in the stool. She reports chronic abdominal pain to the entire abdomen. She denies any urinary complaints. She denies pain anywhere extremities. She denies pain overlying the previous a port site and denies pain at the current a port site Infect Dis PN-Objective Data - Labs CBC & Chem 7: 03/01/17 06:15 03/01/17 06:15 Labs: Laboratory Results - last 24 hr 02/28/17 02/28/17 02/28/17 03:00 12:48 15:16 WBC RBC Hgb Hct MCV MCH MCHC RDW Plt Count MPV Immature Gran % Seg Neutrophils % Lymphocytes % Monocytes % Eosinophils % Basophils % Neutrophils # Lymphocytes # Monocytes # Eosinophils # Basophils # Sodium Potassium Chloride Carbon Dioxide BUN Creatinine Est GFR ( Amer) Est GFR (Non-Af Amer) BUN/Creatinine Ratio Glucose Calculated Osmolality Calcium Iron 31 L % Saturation 7 L Transferrin 324 Ferritin 8 Total Bilirubin AST ALT Alkaline Phosphatase Creatine Kinase 47 Serum Total Protein Albumin Globulin Albumin/Globulin Ratio Triglycerides Vitamin B12 286 Folate 8.2 TSH 02/28/17 03/01/17 03/01/17 15:16 06:15 06:15 WBC 5.2 D RBC 3.42 L Hgb 8.4 L D Hct 27.3 L MCV 79.8 L MCH 24.6 L MCHC 30.8 L RDW 18.2 H Plt Count 239 MPV 10.1 Immature Gran % 0.2 Seg Neutrophils % 50.7 Lymphocytes % 39.8 Monocytes % 7.9 Eosinophils % 0.8 Basophils % 0.6 Neutrophils # 2.6 Lymphocytes # 2.1 Monocytes # 0.4 Eosinophils # 0.0 Basophils # 0.0 Sodium 138 Potassium 3.8 Chloride 108 Carbon Dioxide 26 BUN 13 Creatinine 0.63 Est GFR ( Amer) > 60 Est GFR (Non-Af Amer) > 60 BUN/Creatinine Ratio 21 Glucose 83 Calculated Osmolality 285 Calcium 8.4 L Iron % Saturation Transferrin Ferritin Total Bilirubin 0.2 AST 10 ALT 9 Alkaline Phosphatase 44 Creatine Kinase Serum Total Protein 5.4 L D Albumin 2.9 L D Globulin 2.5 Albumin/Globulin Ratio 1.2 Triglycerides 83 Vitamin B12 Folate TSH 12.964 H Cultures: Cultures 02/27/17 20:39 Blood Culture - Preliminary Peripheral Venipuncture No growth. 02/27/17 20:17 Blood Culture - Preliminary Peripheral Venipuncture No growth. Exam - Constitutional Vitals: Temp Pulse Resp BP Pulse Ox 98.0 F 103 16 116/71 98 03/01/17 08:52 03/01/17 08:52 03/01/17 08:52 03/01/17 08:52 03/01/17 08:52 General appearance: average body habitus, cooperative, no acute distress - Head Head exam: Present: atraumatic, normal inspection, normocephalic - Eye Eye exam: Present: EOMI, normal appearance Pupils: Present: normal accommodation, PERRL Additional comments: No subconjunctival hemorrhage noted. - ENT ENT exam: Present: mucous membranes moist - Neck Neck exam: Present: normal inspection - Respiratory Respiratory exam: Present: CTAB. Absent: rales, respiratory distress, rhonchi, wheezes - Cardiovascular Cardiovascular exam: Present: RRR, +S1, +S2 - GI/Abdominal GI/Abdominal exam: Present: normal bowel sounds, soft, tenderness (generalized) . Absent: distended - Extremities Exam Extremities exam: Present: normal capillary refill, normal inspection. Absent: tenderness - Neurological Exam Neurological exam: Present: alert, oriented X3, no focal deficits, strengths equal and symetr throughout - Psychiatric Psychiatric exam: Present: normal affect, normal mood - Skin Skin exam: Present: dry, intact, normal color, warm - Additional findings Additional findings: Well-healed scar noted to the left upper chest at the previous a port site. A port noted to the right upper chest with transparent dressing clean, dry, and intact. Accessed with a Bledsoe needle. No erythema, tenderness, or drainage noted. Consult Discharge Plan - Plan Referrals: Jose David Hebert DO [Primary Care Provider] -
--- NOTE | 2017-03-01 12:25 | Internal Med Progress Note ---
Date of Encounter: 03/01/17 Time of Encounter: 12:22 - Assessment and plan (1) Crohns disease Current Visit: No Status: Chronic Assessment and plan: Known history of Crohn's disease for which she is seen frequently for outpatient follow-up. Crohn's disease associated with frequent diarrhea, nausea vomiting previous abdominal CT was consistent with colitis. Patient is a current port in place. Currently receiving scheduled Entyvio infusions and on Mesalamine 2.4mg PO daily. Also receiving scheduled benadryl and phenergan scheduled. Zofran PRN Receiving TPN for nutritional supplementation, continue same. Qualifiers: Gastrointestinal tract location: small and large intestine Digestive disease complication type: without complication Qualified Code(s): K50.80 - Crohn's disease of both small and large intestine without complications (2) Tachycardia Current Visit: Yes Status: Acute Assessment and plan: Chronic, work up has been negative ECHo noted with no remarkable findings TSH actually elevated Will check Free T3/T4 (3) Asthma Current Visit: Yes Status: Chronic Assessment and plan: Chronic, stable, not wheezing at this time Albuterol prn Qualifiers: Asthma severity: mild intermittent Asthma complication type: uncomplicated Qualified Code(s): J45.20 - Mild intermittent asthma, uncomplicated (4) Gram-positive bacteremia Current Visit: No Status: Acute Assessment and plan: Causative organism S. sciuri. Source likely infected PICC line vs. contaminant. Blood culture drawn 02/23/17 from the PICC line was positive 1/1 set. Blood culture drawn 02/23/17 from a peripheral stick was negative 1/1 set. PICC line was removed 02/24/17. The patient has been afebrile since admission. WBC has been normal, except one aberrant read, possibly due to steroids Clinically, the patient does not appear to have an acute infection. Repeat blood cultures drawn 02/27/17 are NGTD x 2 sets. The patient had not received any IV antibiotics prior to repeat blood cultures being drawn. Continue Daptomycin 4mg/kg IV daily for now. If repeat cultures remain negative, will likely treat for 7 days and discontinue antibiotics. Monitor renal function and dose-adjust antibiotics, pharmacy to dose Baseline CK level 47. (5) Pain syndrome, chronic Current Visit: Yes Status: Chronic Assessment and plan: Continue current meds (6) On total parenteral nutrition (TPN) Current Visit: No Status: Acute (7) Hypothyroidism Current Visit: Yes Status: Suspected Assessment and plan: Uncontrolled TSH 12 Will check Free T4 and T3 Continue current dose of synthroid till review of Free T4/T3 Qualifiers: Hypothyroidism type: unspecified Qualified Code(s): E03.9 - Hypothyroidism , unspecified (8) DVT (deep venous thrombosis) Current Visit: Yes Status: Acute Assessment and plan: Patient has a known left upper extremity DVT likely secondary to traumatic removal of port. - CT of the chest does not demonstrate PE - V/Q scan performed February 23 low suspicion for PE. Plan: - Continue Lovenox DVT dosing twice a day. Qualifiers: DVT location: upper extremity Affected thrombotic vein of extremity: unspecified vein of extremity Laterality: left Chronicity: acute Qualified Code(s): I82.622 - Acute embolism and thrombosis of deep veins of left upper extremity (9) Malnutrition Current Visit: Yes Status: Acute Assessment and plan: TPN, continue - Subjective Interval history: Seen at bedside being managed for staph .sciuri bacteremia No new complains She has been afebrile throughout hospitalization She had leukocytosis, mild which has improved ECHO unremarkable, no vegetations Blood cultures still negative 02/23 X1, 02/27 X2 labs from today is dilutional She is otherwise stable - Constitutional Vitals: Temp Pulse Resp BP Pulse Ox 98.0 F 103 16 116/71 98 03/01/17 08:52 03/01/17 08:52 03/01/17 08:52 03/01/17 08:52 03/01/17 08:52 General appearance: Present: A&O X 3, pleasant, no acute distress, loss of weight - Head Head exam: Present: atraumatic, normocephalic - Eye Eye exam: Present: PERRL, conjuntiva pink, sclera anicteric Pupils: Present: PERRL - Neck Neck exam general surgery: Present: supple, trachea midline. Absent: lymphadenopathy - Respiratory Respiratory exam: Present: CTAB. Absent: accessory muscle use, rales, rhonchi, wheezes Additional comments: R chest wall port - Cardiovascular Cardiovascular exam: Present: RRR, +S1, +S2. Absent: diastolic murmur, gallop, rubs, systolic murmur - GI/Abdominal GI/Abdominal exam: Present: normal bowel sounds, soft, no peritoneal signs. Absent: distended, tenderness - Extremities Exam Extremities exam: Present: warm, radial pulses palpable and symetrical. Absent : calf tenderness, cyanotic, pedal edema - Neurological Exam Neurological exam: Present: alert, CN II-XII intact, oriented X3, no focal deficits. Absent: pronater drift, facial droop, speech deficit - Skin Skin exam: Present: dry, intact Internal Medicine: Result - Labs CBC & Chem 7: 03/01/17 06:15 03/01/17 06:15 Labs: Short CBC 03/01/17 Range/Units 06:15 WBC 5.2 D (4.3-11.1) K/mcL Hgb 8.4 L D (11.5-15.4) g/dL Hct 27.3 L (35.3-44.9) % Plt Count 239 (140-400) K/mcL Neutrophils # 2.6 (1.6-8.9) K/mcL BMP 03/01/17 06:15 Sodium 138 Potassium 3.8 Chloride 108 Carbon Dioxide 26 BUN 13 Creatinine 0.63 Glucose 83 Calcium 8.4 L Liver Function 03/01/17 Range/Units 06:15 Total Bilirubin 0.2 (0.2-1.2) mg/dL AST 10 (5-34) Units/L ALT 9 (0-55) Units/L Alkaline Phosphatase 44 (38-126) Units/L Albumin 2.9 L D (3.5-5.0) g/dL - ABG Interpretation ABG results: PT/INR, D-dimer PT 11.5 Seconds (9.4-12.1) 02/27/17 20:17 Consult Discharge Plan - Plan Referrals: Jose David Hebert DO [Primary Care Provider] -
[2017-03-01] MEDS: MESALAMINE 800 MG PO SCH (16:33)
[2017-03-01] MEDS ORDERED: Clinimix E 5%-15% SOLUTION 2,000 ML with MVI, adult with vitamin K 10 ML IVC SCH ×2 (17:00)
[2017-03-01] MEDS: SODIUM CHLORIDE 0.9% IVPB SCH (22:55)
[2017-03-01] MEDS: DAPTOMYCIN IVPB SCH (22:55)
[2017-03-02] MEDS: *HR* HYDROmorphone 2 MG/ML SYRINGE IVP PRN ×4 (02:27→12:28)
[2017-03-02] MEDS: *HR* Promethazine 25 MG/ML VIAL IVP PRN ×2 (03:08→09:21)
[2017-03-02 04:03] LABS: BUN/Creatinine Ratio 26 (6-26); Blood Urea Nitrogen 16 mg/dL (7-20); Carbon Dioxide 29 mEq/L (19-29); Chloride 104 mEq/L (98-109); Glucose 94 mg/dL (70-99); Magnesium 1.8 mg/dL (1.6-2.6); Osmolality,Calculated 287 (280-300); Phosphorous 4.6 mg/dL (2.3-4.7); Potassium 4.4 mEq/L (3.5-4.5); Sodium 138 mEq/L (136-145); eGFR For African Americans > 60 (> 60); eGFR For Non-African Americans > 60 (> 60)
[2017-03-02] MEDS: *HR* OxyCODONE Immed Rel 15 MG TABLET PO PRN ×3 (04:10→22:48)
[2017-03-02 04:24] LABS: Triiodothyronine (T3) Free 2.39 pg/mL (1.71-3.71)
[2017-03-02] MEDS: *HR* Enoxaparin 40 MG/0.4 ML SYRINGE SQ SCH ×2 (06:11→16:21)
[2017-03-02] MEDS: Famotidine 20 MG TABLET PO SCH ×2 (06:11→16:23)
[2017-03-02] MEDS: MESALAMINE 800 MG PO SCH ×3 (08:30→15:42)
--- NOTE | 2017-03-02 10:19 | Infectious Disease Progress No ---
Date of Encounter: 03/02/17 Time of Encounter: 10:17 - Assessment and Plan (1) Bacteremia Current Visit: Yes Status: Acute Causative organism S. sciuri. Source likely infected PICC line vs. contaminant. Blood culture drawn 02/23/17 from the PICC line was positive 1/1 set. Blood culture drawn 02/23/17 from a peripheral stick was negative 1/1 set. PICC line was removed 02/24/17. The patient has been afebrile since admission. Her WBC has normalized. Clinically, the patient does not appear to have an acute infection. Repeat blood cultures drawn 02/27/17 are NGTD x 2 sets. The patient had not received any IV antibiotics prior to repeat blood cultures being drawn. Continue Daptomycin 4mg/kg IV daily for now (day 4). If repeat cultures remain negative, will likely treat for 7 days and discontinue antibiotics. Monitor renal function and dose-adjust antibiotics. Baseline CK level 47. (2) Chest pain Current Visit: Yes Status: Acute Etiology unclear, but likely secondary to increased use of the LUE after recent traumatic removal of embedded a-port to the left upper chest, worsened today by pressure from ECHO probe yesterday. Clinically, the site does not appear infected. CXR negative. CTA of the chest negative. VQ scan showed low probability for PE. TTE negative. Pain management as outlined by the primary team. Qualifiers: Chest pain type: unspecified Qualified Code(s): R07.9 - Chest pain, unspecified (3) Tachycardia Current Visit: Yes Status: Acute Etiology unclear. Likely unrelated to infectious etiology. Consider cardiology consult. Management per the primary team. (4) DVT (deep venous thrombosis) Current Visit: Yes Status: Acute Location: LUE as diagnosed at [facility]. Continue Lovenox injections. Management per the primary team. Qualifiers: DVT location: upper extremity Affected thrombotic vein of extremity: unspecified vein of extremity Laterality: left Chronicity: acute Qualified Code(s): I82.622 - Acute embolism and thrombosis of deep veins of left upper extremity (5) Crohns disease Current Visit: No Status: Chronic Follows with [facility]. Currently on Entyvio infusion regimen. Qualifiers: Gastrointestinal tract location: small and large intestine Digestive disease complication type: without complication Qualified Code(s): K50.80 - Crohn's disease of both small and large intestine without complications (6) Anemia Current Visit: No Status: Chronic Qualifiers: Anemia type: iron deficiency Iron deficiency anemia type: chronic blood loss Qualified Code(s): D50.0 - Iron deficiency anemia secondary to blood loss (chronic) - Subjective Interval history: Patient seen and examined. No acute events noted overnight. The patient states she feels about the same today. Continues to complain of pain in the left upper chest, now tender in addition to the deep-seated pain, and chronic abdominal pain. She denies any fevers or chills or rigors. She denies any headache or neck pain. She denies any shortness of breath or cough. She does report chronic nausea and states she is not able to keep any of her breakfast or medications down. She reports chronic diarrhea, but denies blood or mucus in the stool. She reports chronic abdominal pain to the entire abdomen. She denies any urinary complaints. She denies pain anywhere in her extremities. She denies pain at the current a port site Infect Dis PN-Objective Data - Labs CBC & Chem 7: 03/01/17 06:15 03/02/17 03:40 Labs: Laboratory Results - last 24 hr 03/01/17 03/02/17 03/02/17 17:50 01:11 03:40 Sodium 138 Potassium 4.4 Chloride 104 Carbon Dioxide 29 BUN 16 Creatinine 0.62 Est GFR ( Amer) > 60 Est GFR (Non-Af Amer) > 60 BUN/Creatinine Ratio 26 Glucose 94 POC Glucose 95 H 92 H Calculated Osmolality 287 Calcium 9.0 Phosphorus 4.6 Magnesium 1.8 Free T4 0.60 L Free T3 2.39 03/02/17 05:57 Sodium Potassium Chloride Carbon Dioxide BUN Creatinine Est GFR ( Amer) Est GFR (Non-Af Amer) BUN/Creatinine Ratio Glucose POC Glucose 100 H Calculated Osmolality Calcium Phosphorus Magnesium Free T4 Free T3 Exam - Constitutional Vitals: Temp Pulse Resp BP Pulse Ox 98.2 F 100 14 112/72 98 03/02/17 07:46 03/02/17 07:46 03/02/17 07:46 03/02/17 07:46 03/02/17 07:46 General appearance: average body habitus, cooperative, no acute distress - Head Head exam: Present: atraumatic, normal inspection, normocephalic - Eye Eye exam: Present: EOMI, normal appearance, PERRL Pupils: Present: normal accommodation - ENT ENT exam: Present: mucous membranes moist - Neck Neck exam: Present: normal inspection - Respiratory Respiratory exam: Present: CTAB. Absent: rales, respiratory distress, rhonchi, wheezes - Cardiovascular Cardiovascular exam: Present: RRR, +S1, +S2 - GI/Abdominal GI/Abdominal exam: Present: normal bowel sounds, soft, tenderness (generalized) . Absent: distended - Extremities Exam Extremities exam: Present: normal inspection. Absent: joint swelling, pedal edema, tenderness - Neurological Exam Neurological exam: Present: alert, oriented X3, no focal deficits - Psychiatric Psychiatric exam: Present: normal affect, normal mood - Skin Skin exam: Present: dry, intact, normal color, warm - Additional findings Additional findings: Well-healed surgical scar noted to the left upper chest, tender, but non- erythematous or warm to touch. A-port noted to the right upper chest with transparent dressing C/D/I. No erythema, warmth, or drainage noted. Currently accessed with Bledsoe needle. Consult Discharge Plan - Plan Referrals: Jose David Hebert DO [Primary Care Provider] -
--- NOTE | 2017-03-02 10:23 | Internal Med Progress Note ---
Date of Encounter: 03/02/17 Time of Encounter: 10:22 - Assessment and plan (1) Crohns disease Current Visit: Yes Status: Chronic Assessment and plan: Known history of Crohn's disease for which she is seen frequently for outpatient follow-up. Crohn's disease associated with frequent diarrhea, nausea vomiting previous abdominal CT was consistent with colitis. Patient is a current port in place. Currently receiving scheduled Entyvio infusions and on Mesalamine 2.4mg PO daily. Also receiving scheduled benadryl and phenergan scheduled. Zofran PRN Receiving TPN for nutritional supplementation, continue same. Qualifiers: Gastrointestinal tract location: small and large intestine Digestive disease complication type: without complication Qualified Code(s): K50.80 - Crohn's disease of both small and large intestine without complications (2) Tachycardia Current Visit: Yes Status: Acute Assessment and plan: Chronic, work up has been negative ECHo noted with no remarkable findings TSH actually elevated Juanito T3 WNL Free T4 borderline low (3) Asthma Current Visit: Yes Status: Chronic Assessment and plan: Chronic, stable, not wheezing at this time Albuterol prn Qualifiers: Asthma severity: mild intermittent Asthma complication type: uncomplicated Qualified Code(s): J45.20 - Mild intermittent asthma, uncomplicated (4) Gram-positive bacteremia Current Visit: No Status: Acute Assessment and plan: Causative organism S. sciuri. Source likely infected PICC line vs. contaminant. Blood culture drawn 02/23/17 from the PICC line was positive 1/1 set. Blood culture drawn 02/23/17 from a peripheral stick was negative / set. PICC line was removed 02/24/17. The patient has been afebrile since admission. WBC has been normal, except one aberrant read, possibly due to steroids Clinically, the patient does not appear to have an acute infection. Repeat blood cultures drawn 02/27/17 are NGTD x 2 sets. The patient had not received any IV antibiotics prior to repeat blood cultures being drawn. Continue Daptomycin 4mg/kg IV daily for now. Monitor renal function and dose-adjust antibiotics, pharmacy to dose Anticipate to d/c antibiotics after 7 days , if blood cultures return negative (5) Pain syndrome, chronic Current Visit: Yes Status: Chronic Assessment and plan: Patient receiving 1.5mg dilaudid every 3 hrs as well as Oxycodone Will hold off Dilaudid for now, RN gave 3.5mg this a.m instead of 1.5 patient has no current adverse effects of same She was tolerating po at home prior to hospitalization Continue her home po meds and titrate as necessary (6) On total parenteral nutrition (TPN) Current Visit: No Status: Acute (7) Hypothyroidism Current Visit: Yes Status: Suspected Assessment and plan: Uncontrolled TSH 12 Free T3 and T4 acceptable Continue current dose of synthroid Qualifiers: Hypothyroidism type: unspecified Qualified Code(s): E03.9 - Hypothyroidism , unspecified (8) DVT (deep venous thrombosis) Current Visit: Yes Status: Acute Assessment and plan: Patient has a known left upper extremity DVT likely secondary to traumatic removal of port. - CT of the chest does not demonstrate PE - V/Q scan performed February 23 low suspicion for PE. Plan: - Continue Lovenox DVT dosing twice a day. Qualifiers: DVT location: upper extremity Affected thrombotic vein of extremity: unspecified vein of extremity Laterality: left Chronicity: acute Qualified Code(s): I82.622 - Acute embolism and thrombosis of deep veins of left upper extremity (9) Malnutrition Current Visit: Yes Status: Acute Assessment and plan: TPN, continue - Subjective Interval history: Seen at bedside being managed for staph .sciuri bacteremia No new complains She has been afebrile throughout hospitalization She had leukocytosis, mild which has improved ECHO unremarkable, no vegetations Blood cultures still negative 02/23 X1, 02/27 X2 Chem WNL She is very stable and talkative at time of review - Constitutional Vitals: Temp Pulse Resp BP Pulse Ox 98.2 F 100 14 112/72 98 03/02/17 07:46 03/02/17 07:46 03/02/17 07:46 03/02/17 07:46 03/02/17 07:46 General appearance: Present: A&O X 3, pleasant, no acute distress, loss of weight - Head Head exam: Present: atraumatic, normocephalic - Eye Eye exam: Present: PERRL, conjuntiva pink, sclera anicteric Pupils: Present: PERRL - Neck Neck exam general surgery: Present: supple, trachea midline. Absent: lymphadenopathy - Respiratory Respiratory exam: Present: CTAB. Absent: accessory muscle use, rales, rhonchi, wheezes Additional comments: R chest wall port - Cardiovascular Cardiovascular exam: Present: RRR, +S1, +S2. Absent: diastolic murmur, gallop, rubs, systolic murmur - GI/Abdominal GI/Abdominal exam: Present: normal bowel sounds, soft, no peritoneal signs. Absent: distended, tenderness - Extremities Exam Extremities exam: Present: warm, radial pulses palpable and symetrical. Absent : calf tenderness, cyanotic, pedal edema - Neurological Exam Neurological exam: Present: alert, CN II-XII intact, oriented X3, no focal deficits. Absent: pronater drift, facial droop, speech deficit - Skin Skin exam: Present: dry, intact Internal Medicine: Result - Labs CBC & Chem 7: 03/01/17 06:15 03/02/17 03:40 Labs: BMP 03/02/17 03:40 Sodium 138 Potassium 4.4 Chloride 104 Carbon Dioxide 29 BUN 16 Creatinine 0.62 Glucose 94 Calcium 9.0 - ABG Interpretation ABG results: PT/INR, D-dimer PT 11.5 Seconds (9.4-12.1) 02/27/17 20:17 Consult Discharge Plan - Plan Referrals: Jose David Hebert DO [Primary Care Provider] -
[2017-03-02] MEDS ORDERED: Promethazine 12.5 MG in 0.9 % Sodium Chloride 50 ML IVPB PRN (15:49)
[2017-03-02] MEDS ORDERED: Clinimix E 5%-15% SOLUTION 2,000 ML with MVI, adult with vitamin K 10 ML IVC SCH (17:00)
[2017-03-02] MEDS: *HR* HYDROmorphone (PF) 1 MG/ML SYRINGE IVP PRN (20:11)
[2017-03-02] MEDS: Ondansetron 4 MG/2 ML VIAL IVP PRN (22:48)
[2017-03-02] MEDS: DAPTOMYCIN IVPB SCH (23:21)
[2017-03-02] MEDS: SODIUM CHLORIDE 0.9% IVPB SCH (23:21)
[2017-03-03] MEDS: *HR* HYDROmorphone (PF) 1 MG/ML SYRINGE IVP PRN ×3 (00:40→10:07)
[2017-03-03] MEDS: *HR* OxyCODONE Immed Rel 15 MG TABLET PO PRN ×2 (03:39→08:51)
[2017-03-03 04:30] LABS: BUN/Creatinine Ratio 25 (6-26); Blood Urea Nitrogen 16 mg/dL (7-20); Calcium 9.7 mg/dL (8.6-10.8); Carbon Dioxide 29 mEq/L (19-29); Chloride 101 mEq/L (98-109); Glucose 63 mg/dL (70-99); Osmolality,Calculated 283 (280-300); Potassium 4.9 mEq/L (3.5-4.5); Sodium 137 mEq/L (136-145); eGFR For African Americans > 60 (> 60); eGFR For Non-African Americans > 60 (> 60)
[2017-03-03] MEDS: *HR* Enoxaparin 40 MG/0.4 ML SYRINGE SQ SCH ×2 (05:55→17:05)
[2017-03-03] MEDS: MESALAMINE 800 MG PO SCH ×3 (07:37→16:57)
[2017-03-03] MEDS: Famotidine 20 MG TABLET PO SCH ×2 (09:31→17:05)
--- NOTE | 2017-03-03 11:07 | Internal Med Progress Note ---
Date of Encounter: 03/03/17 Time of Encounter: 11:04 - Assessment and plan (1) Opiate dependence, continuous Current Visit: Yes Status: Acute Assessment and plan: Of note, patient has been drug seeking. She was on po oxycodone 15mg q4 prn at home and somehow has been receiving dilaudid IV 1.5mg q3hr since admission. I discontinued Dilaudid IV on 03/02 p.m after discussing with her resident PCP who stated they had been weaning her off opiates and she was meant to start taking 10mg po q4hprn from Thursday 03/01. Per RN, patient had been reporting vomiting, which was not witnessed , vomitus contained cold beverage and did not contain the po medications she had received Will d/c IV dilaudid, patient educated and aware Continue po medications, follow up with PCP on discharge with 10mg po q4hr prn oxycodone (2) Crohns disease Current Visit: Yes Status: Chronic Assessment and plan: Known history of Crohn's disease for which she is seen frequently for outpatient follow-up. Crohn's disease associated with frequent diarrhea, nausea vomiting previous abdominal CT was consistent with colitis. Patient is a current port in place. Currently receiving scheduled Entyvio infusions and on Mesalamine 2.4mg PO daily. Also receiving scheduled benadryl and phenergan scheduled. Zofran PRN Receiving TPN for nutritional supplementation, continue same. Qualifiers: Gastrointestinal tract location: small and large intestine Digestive disease complication type: without complication Qualified Code(s): K50.80 - Crohn's disease of both small and large intestine without complications (3) Tachycardia Current Visit: Yes Status: Acute Assessment and plan: Chronic, work up has been negative ECHo noted with no remarkable findings TSH actually elevated Juanito T3 WNL Free T4 borderline low (4) Asthma Current Visit: Yes Status: Chronic Assessment and plan: Chronic, stable, not wheezing at this time Albuterol prn Qualifiers: Asthma severity: mild intermittent Asthma complication type: uncomplicated Qualified Code(s): J45.20 - Mild intermittent asthma, uncomplicated (5) Gram-positive bacteremia Current Visit: Yes Status: Acute Assessment and plan: Causative organism S. sciuri. Source likely infected PICC line vs. contaminant. Blood culture drawn 02/23/17 from the PICC line was positive 1/1 set. Blood culture drawn 02/23/17 from a peripheral stick was negative 1 set. PICC line was removed 02/24/17. The patient has been afebrile since admission. WBC has been normal, except one aberrant read, possibly due to steroids Clinically, the patient does not appear to have an acute infection. Repeat blood cultures drawn 02/27/17 are NGTD x 2 sets. The patient had not received any IV antibiotics prior to repeat blood cultures being drawn. Continue Daptomycin 4mg/kg IV daily for now. Monitor renal function and dose-adjust antibiotics, pharmacy to dose Anticipate to d/c antibiotics after 7 days , if blood cultures return negative (6) Pain syndrome, chronic Current Visit: Yes Status: Chronic Assessment and plan: Patient receiving 1.5mg dilaudid every 3 hrs as well as Oxycodone D/C IV dilaudid patient has no current adverse effects of same Plan as in opiate dependence (7) On total parenteral nutrition (TPN) Current Visit: No Status: Acute (8) Hypothyroidism Current Visit: Yes Status: Chronic Assessment and plan: Uncontrolled TSH 12 Free T3 and T4 acceptable Continue current dose of synthroid Qualifiers: Hypothyroidism type: unspecified Qualified Code(s): E03.9 - Hypothyroidism , unspecified (9) DVT (deep venous thrombosis) Current Visit: Yes Status: Chronic Assessment and plan: Patient has a known left upper extremity DVT likely secondary to traumatic removal of port. - CT of the chest does not demonstrate PE - V/Q scan performed February 23 low suspicion for PE. Plan: - Continue Lovenox DVT dosing twice a day. Qualifiers: DVT location: upper extremity Affected thrombotic vein of extremity: unspecified vein of extremity Laterality: left Chronicity: acute Qualified Code(s): I82.622 - Acute embolism and thrombosis of deep veins of left upper extremity (10) Malnutrition Current Visit: Yes Status: Chronic Assessment and plan: TPN, continue - Subjective Interval history: Seen at bedside being managed for staph .sciuri bacteremia No new complains She has been afebrile throughout hospitalization She had leukocytosis, mild which has improved ECHO unremarkable, no vegetations Blood cultures still negative 02/23 X1, 02/27 X2 Chem WNL She is very stable and talkative at time of review Call to Microbiology reveals blood culture will be finalized tomorrow , patient will be discharged then Day 3 of Daptomycin, to complete 7 days of therapy per ID SW has been consulted for reinitiation of home services, including infusion Of note, patient has been drug seeking. She was on po oxycodone 15mg q4 prn at home and somehow has been receiving dilaudid IV 1.5mg q3hr since admission. I discontinued Dilaudid IV on 03/02 p.m after discussing with her resident PCP who stated they had been weaning her off opiates and she was meant to start taking 10mg po q4hprn from Thursday 03/01. Per RN, patient had been reporting vomiting, which was not witnessed , vomitus contained cold beverage and did not contain the po medications she had received Will d/c IV dilaudid, patient educated and aware Continue po medications, follow up with PCP on discharge with 10mg po q4hr prn oxycodone - Constitutional Vitals: Temp Pulse Resp BP Pulse Ox 98.4 F 92 18 100/66 97 03/03/17 05:08 03/03/17 05:08 03/03/17 05:08 03/03/17 05:08 03/03/17 05:08 General appearance: Present: A&O X 3, pleasant, no acute distress, loss of weight - Head Head exam: Present: atraumatic, normocephalic - Eye Eye exam: Present: PERRL, conjuntiva pink, sclera anicteric Pupils: Present: PERRL - Neck Neck exam general surgery: Present: supple, trachea midline. Absent: lymphadenopathy - Respiratory Respiratory exam: Present: CTAB. Absent: accessory muscle use, rales, rhonchi, wheezes Additional comments: port on r chest wall - Cardiovascular Cardiovascular exam: Present: RRR, +S1, +S2. Absent: diastolic murmur, gallop, rubs, systolic murmur - GI/Abdominal GI/Abdominal exam: Present: normal bowel sounds, soft, no peritoneal signs. Absent: distended, tenderness - Extremities Exam Extremities exam: Present: warm, radial pulses palpable and symetrical. Absent : calf tenderness, cyanotic, pedal edema - Neurological Exam Neurological exam: Present: alert, CN II-XII intact, oriented X3, no focal deficits. Absent: pronater drift, facial droop, speech deficit - Skin Skin exam: Present: dry, intact Internal Medicine: Result - Labs CBC & Chem 7: 03/01/17 06:15 03/03/17 04:10 Labs: BMP 03/03/17 04:10 Sodium 137 Potassium 4.9 H Chloride 101 Carbon Dioxide 29 BUN 16 Creatinine 0.63 Glucose 63 L Calcium 9.7 - ABG Interpretation ABG results: PT/INR, D-dimer PT 11.5 Seconds (9.4-12.1) 02/27/17 20:17 Consult Discharge Plan - Plan Referrals: Jose David Hebert DO [Primary Care Provider] - 03/15/17 1:30 pm
--- NOTE | 2017-03-03 11:21 | Infectious Disease Progress No ---
Date of Encounter: 03/03/17 Time of Encounter: 11:19 - Assessment and Plan (1) Bacteremia Current Visit: Yes Status: Acute Causative organism S. sciuri. Source likely infected PICC line vs. contaminant. Blood culture drawn 02/23/17 from the PICC line was positive 1/1 set. Blood culture drawn 02/23/17 from a peripheral stick was negative 1/ set. PICC line was removed 02/24/17. The patient has been afebrile since admission. Her WBC has normalized. Clinically, the patient does not appear to have an acute infection. Repeat blood cultures drawn 02/27/17 are NGTD x 2 sets. The patient had not received any IV antibiotics prior to repeat blood cultures being drawn. Continue Daptomycin 4mg/kg IV daily for now (day 5). If repeat cultures remain negative, will likely treat for 7 days and discontinue antibiotics. Monitor renal function and dose-adjust antibiotics. Baseline CK level 47. Patient requesting discharge today. If discharge okay with primary team, recommend having the patient complete the additional two days of IV antibiotics at home with the assistance of home health. (2) Chest pain Current Visit: Yes Status: Acute Etiology unclear, but likely secondary to increased use of the LUE after recent traumatic removal of embedded a-port to the left upper chest, worsened by pressure from ECHO probe. Clinically, the site does not appear infected. CXR negative. CTA of the chest negative. VQ scan showed low probability for PE. TTE negative. Pain management as outlined by the primary team. Qualifiers: Qualified Code(s): R07.9 - Chest pain, unspecified (3) Tachycardia Current Visit: Yes Status: Acute Etiology unclear. Likely unrelated to infectious etiology. Consider cardiology consult. Management per the primary team. (4) DVT (deep venous thrombosis) Current Visit: Yes Status: Acute Location: LUE as diagnosed at [facility]. Continue Lovenox injections. Management per the primary team. Qualifiers: Qualified Code(s): I82.622 - Acute embolism and thrombosis of deep veins of left upper extremity (5) Crohns disease Current Visit: Yes Status: Chronic Follows with [facility]. Currently on Entyvio infusion regimen. Qualifiers: Qualified Code(s): K50.80 - Crohn's disease of both small and large intestine without complications (6) Anemia Current Visit: No Status: Chronic Qualifiers: Qualified Code(s): D50.0 - Iron deficiency anemia secondary to blood loss ( chronic) - Subjective Interval history: Patient seen and examined. No acute events noted overnight. The patient states she feels about the same today, but is stating that she feels well enough to go home. Continues to complain of pain in the left upper chest and chronic abdominal pain. She denies any fevers or chills or rigors. She denies any headache or neck pain. She denies any shortness of breath or cough. She does report chronic nausea and states she was not able to keep any of her breakfast or medications down due to not taking nausea medication prior. States she has been able to keep a little chocolate milk down since getting her Phenergan. She reports chronic diarrhea, but denies blood or mucus in the stool. She reports chronic abdominal pain to the entire abdomen. She denies any urinary complaints. She denies pain anywhere in her extremities. She denies pain at the current a port site. Infect Dis PN-Objective Data - Labs CBC & Chem 7: 03/01/17 06:15 03/03/17 04:10 Labs: Laboratory Results - last 24 hr 03/02/17 03/02/17 03/03/17 12:01 17:54 04:10 Sodium 137 Potassium 4.9 H Chloride 101 Carbon Dioxide 29 BUN 16 Creatinine 0.63 Est GFR ( Amer) > 60 Est GFR (Non-Af Amer) > 60 BUN/Creatinine Ratio 25 Glucose 63 L POC Glucose 93 H 85 Calculated Osmolality 283 Calcium 9.7 03/03/17 05:01 Sodium Potassium Chloride Carbon Dioxide BUN Creatinine Est GFR ( Amer) Est GFR (Non-Af Amer) BUN/Creatinine Ratio Glucose POC Glucose 100 H Calculated Osmolality Calcium Exam - Constitutional Vitals: Temp Pulse Resp BP Pulse Ox 98.4 F 108 18 108/67 96 03/03/17 11:00 03/03/17 11:00 03/03/17 11:00 03/03/17 11:00 03/03/17 11:00 General appearance: average body habitus, cooperative, no acute distress - Head Head exam: Present: atraumatic, normal inspection, normocephalic - Eye Eye exam: Present: EOMI, normal appearance, PERRL Pupils: Present: normal accommodation - ENT ENT exam: Present: mucous membranes moist - Neck Neck exam: Present: normal inspection - Respiratory Respiratory exam: Present: CTAB. Absent: rales, respiratory distress, rhonchi, wheezes - Cardiovascular Cardiovascular exam: Present: +S1, +S2, tachycardia. Absent: irregular rhythm - GI/Abdominal GI/Abdominal exam: Present: normal bowel sounds, soft, tenderness (generalized) . Absent: distended - Extremities Exam Extremities exam: Present: normal inspection. Absent: joint swelling, pedal edema, tenderness - Neurological Exam Neurological exam: Present: alert, oriented X3, no focal deficits - Psychiatric Psychiatric exam: Present: normal affect, normal mood - Skin Skin exam: Present: dry, intact, normal color, warm - Additional findings Additional findings: Well-healed scar noted to the left upper chest without redness or warmth. Tenderness noted with palpation, but no fluctuance noted. A-port noted to the right upper chest, accessed with Bledsoe needle and covered with transparent dressing. No erythema, warmth, or tenderness noted. Consult Discharge Plan - Plan Referrals: Jose David Hebert DO [Primary Care Provider] - 03/15/17 1:30 pm
[2017-03-03] MEDS: *HR* OxyCODONE Immed Rel 5 MG TABLET PO PRN ×3 (13:04→21:23)
[2017-03-03] MEDS ORDERED: Clinimix E 5%-15% SOLUTION 2,000 ML with MVI, adult with vitamin K 10 ML IVC SCH (17:00)
[2017-03-03] MEDS: DAPTOMYCIN IVPB SCH (21:25)
[2017-03-03] MEDS: SODIUM CHLORIDE 0.9% IVPB SCH (21:25)
[2017-03-03] MEDS: Ondansetron 4 MG/2 ML VIAL IVP PRN (22:36)
[2017-03-04] MEDS: *HR* OxyCODONE Immed Rel 5 MG TABLET PO PRN ×3 (03:57→13:18)
[2017-03-04 04:51] LABS: Basophils % 0.7 %; Eosinophils # 0.2 K/mcL (0.0-0.6); Eosinophils % 4.2 %; Hematocrit 34.1 % (35.3-44.9); Immature Granulocytes % 0.2 % (0-4); Lymphocytes # 1.6 K/mcL (0.6-4.6); Lymphocytes % 35.4 %; Mean Corpuscular HGB Conc 30.2 g/dL (31.6-35.5); Mean Corpuscular Hemoglobin 24.3 pg (28.0-33.3); Mean Corpuscular Volume 80.4 fL (83.0-100.0); Mean Platelet Volume 10.4 fL (9.4-12.4); Monocytes # 0.4 K/mcL (0.0-1.3); Monocytes % 9.7 %; Platelet Count 351 K/mcL (140-400); Red Blood Count 4.24 M/mcL (3.82-4.97); Red Cell Distribution Width 18.5 % (11.5-14.5); Segmented Neutrophils % 49.8 %
[2017-03-04 04:53] LABS: Hemoglobin 10.3 g/dL (11.5-15.4); Neutrophils # 2.2 K/mcL (1.6-8.9)
[2017-03-04 05:32] LABS: BUN/Creatinine Ratio 28 (6-26); Blood Urea Nitrogen 19 mg/dL (7-20); Calcium 9.2 mg/dL (8.6-10.8); Carbon Dioxide 27 mEq/L (19-29); Chloride 103 mEq/L (98-109); Creatine Kinase 16 Units/L (29-168); Glucose 82 mg/dL (70-99); Osmolality,Calculated 287 (280-300); Potassium 4.7 mEq/L (3.5-4.5); Sodium 138 mEq/L (136-145); eGFR For African Americans > 60 (> 60); eGFR For Non-African Americans > 60 (> 60)
[2017-03-04 05:43] LABS: Hypochromasia Present (Not Present); Microcytosis Present (Not Present)
[2017-03-04 05:44] LABS: Platelet Estimate Normal (Normal)
[2017-03-04] MEDS: Famotidine 20 MG TABLET PO SCH (06:10)
[2017-03-04] MEDS: *HR* Enoxaparin 40 MG/0.4 ML SYRINGE SQ SCH (06:11)
[2017-03-04] MEDS: MESALAMINE 800 MG PO SCH ×2 (09:24→12:21)
--- NOTE | 2017-03-04 11:57 | Infectious Disease Progress No ---
Date of Encounter: 03/04/17 Time of Encounter: 11:56 - Assessment and Plan (1) Bacteremia Current Visit: Yes Status: Acute Causative organism S. sciuri. Source likely infected PICC line vs. contaminant. Blood culture drawn 02/23/17 from the PICC line was positive 1/1 set. Blood culture drawn 02/23/17 from a peripheral stick was negative 1/ set. PICC line was removed 02/24/17. The patient has been afebrile since admission. Her WBC has normalized. Clinically, the patient does not appear to have an acute infection. Repeat blood cultures drawn 02/27/17 are NGTD x 2 sets. The patient had not received any IV antibiotics prior to repeat blood cultures being drawn. Continue Daptomycin 4mg/kg IV daily for now (day 6). If repeat cultures remain negative, will likely treat for 7 days and discontinue antibiotics. Monitor renal function and dose-adjust antibiotics. Baseline CK level 47. Patient requesting discharge today. If discharge okay with primary team, recommend having the patient complete the additional day of IV antibiotics at home with the assistance of home health. (2) Chest pain Current Visit: Yes Status: Acute Etiology unclear, but likely secondary to increased use of the LUE after recent traumatic removal of embedded a-port to the left upper chest, worsened by pressure from ECHO probe. Clinically, the site does not appear infected. CXR negative. CTA of the chest negative. VQ scan showed low probability for PE. TTE negative. Pain management as outlined by the primary team. Qualifiers: Chest pain type: unspecified Qualified Code(s): R07.9 - Chest pain, unspecified (3) Tachycardia Current Visit: Yes Status: Acute Etiology unclear. Likely unrelated to infectious etiology. Consider cardiology consult. Management per the primary team. (4) DVT (deep venous thrombosis) Current Visit: Yes Status: Chronic Location: LUE as diagnosed at [facility]. Continue Lovenox injections. Management per the primary team. Qualifiers: DVT location: upper extremity Affected thrombotic vein of extremity: unspecified vein of extremity Laterality: left Chronicity: acute Qualified Code(s): I82.622 - Acute embolism and thrombosis of deep veins of left upper extremity (5) Crohns disease Current Visit: Yes Status: Chronic Follows with [facility]. Currently on Entyvio infusion regimen. Qualifiers: Gastrointestinal tract location: small and large intestine Digestive disease complication type: without complication Qualified Code(s): K50.80 - Crohn's disease of both small and large intestine without complications (6) Anemia Current Visit: No Status: Chronic Qualifiers: Anemia type: iron deficiency Iron deficiency anemia type: chronic blood loss Qualified Code(s): D50.0 - Iron deficiency anemia secondary to blood loss (chronic) - Subjective Interval history: Patient seen and examined. No acute events noted overnight. The patient states she feels about the same today, but is stating that she feels well enough to go home. Continues to complain of pain in the left upper chest and chronic abdominal pain. She denies any fevers or chills or rigors. She denies any headache or neck pain. She denies any shortness of breath or cough. She does report chronic nausea, but states she has been able to keep her morning medications down so far. She reports chronic diarrhea, but denies blood or mucus in the stool. She reports chronic abdominal pain to the entire abdomen. She denies any urinary complaints. She denies pain anywhere in her extremities. She denies pain at the current a port site. Infect Dis PN-Objective Data - Labs CBC & Chem 7: 03/04/17 04:35 03/04/17 04:35 Labs: Laboratory Results - last 24 hr 03/03/17 03/03/17 03/04/17 11:03 18:07 04:35 WBC 4.5 RBC 4.24 Hgb 10.3 L D Hct 34.1 L MCV 80.4 L MCH 24.3 L MCHC 30.2 L RDW 18.5 H Plt Count 351 MPV 10.4 Immature Gran % 0.2 Seg Neutrophils % 49.8 Lymphocytes % 35.4 Monocytes % 9.7 Eosinophils % 4.2 Basophils % 0.7 Neutrophils # 2.2 Lymphocytes # 1.6 Monocytes # 0.4 Eosinophils # 0.2 Basophils # 0.0 Platelet Estimate Normal Hypochromasia Present A Microcytosis Present A Sodium Potassium Chloride Carbon Dioxide BUN Creatinine Est GFR ( Amer) Est GFR (Non-Af Amer) BUN/Creatinine Ratio Glucose POC Glucose 117 H 109 H Calculated Osmolality Calcium Creatine Kinase 03/04/17 03/04/17 04:35 05:28 WBC RBC Hgb Hct MCV MCH MCHC RDW Plt Count MPV Immature Gran % Seg Neutrophils % Lymphocytes % Monocytes % Eosinophils % Basophils % Neutrophils # Lymphocytes # Monocytes # Eosinophils # Basophils # Platelet Estimate Hypochromasia Microcytosis Sodium 138 Potassium 4.7 H Chloride 103 Carbon Dioxide 27 BUN 19 Creatinine 0.69 Est GFR ( Amer) > 60 Est GFR (Non-Af Amer) > 60 BUN/Creatinine Ratio 28 H Glucose 82 POC Glucose 107 H Calculated Osmolality 287 Calcium 9.2 Creatine Kinase 16 L Exam - Constitutional Vitals: Temp Pulse Resp BP Pulse Ox 98.4 F 95 14 103/69 98 03/04/17 05:24 03/04/17 05:24 03/04/17 05:24 03/04/17 05:24 03/04/17 05:24 General appearance: average body habitus, cooperative, no acute distress - Head Head exam: Present: atraumatic, normal inspection, normocephalic - Eye Eye exam: Present: EOMI, normal appearance, PERRL Pupils: Present: normal accommodation - ENT ENT exam: Present: mucous membranes moist - Neck Neck exam: Present: normal inspection - Respiratory Respiratory exam: Present: CTAB. Absent: rales, respiratory distress, rhonchi, wheezes - Cardiovascular Cardiovascular exam: Present: RRR, +S1, +S2 - GI/Abdominal GI/Abdominal exam: Present: normal bowel sounds, soft, tenderness (generalized) . Absent: distended - Extremities Exam Extremities exam: Present: normal inspection. Absent: joint swelling, pedal edema, tenderness - Neurological Exam Neurological exam: Present: alert, oriented X3, no focal deficits - Psychiatric Psychiatric exam: Present: normal affect, normal mood - Skin Skin exam: Present: dry, intact, normal color, warm - Additional findings Additional findings: Well-healed scar noted to the left upper chest without erythema or drainage. Mild tenderness noted with palpation. A-port noted to the right upper chest, currently accessed with Bledsoe needle x 2 with transparent dressing C/D/I. No erythema, drainage, or tenderness noted. Consult Discharge Plan - Plan Referrals: Jose David Hebert DO [Primary Care Provider] - 03/15/17 1:30 pm
--- NOTE | 2017-03-04 12:10 | Discharge Summary ---
<DennysmandaanupJose David Haynes - Last Filed: 03/04/17 17:47> Date of Encounter: 03/04/17 Time of Encounter: 12:04 - Discharge Diagnosis (1) Chest pain Priority: Primary Status: Acute Comments: Chest pain appears to be noncardiac, troponin was 0.00, EKG without significant findings, echocardiogram demonstrated LVEF of 65%, normal left ventricular size and systolic function, normal diastolic function and normal right ventricular size and function, no significant valvular dysfunction, no pulmonary hypertension. Suspect to be muscle skeletal in nature secondary to recent port extraction. Qualifiers: Chest pain type: unspecified Qualified Code(s): R07.9 - Chest pain, unspecified (2) Gram-positive bacteremia Priority: Primary Status: Acute (3) Crohns disease Priority: Primary Status: Chronic Qualifiers: Gastrointestinal tract location: small and large intestine Digestive disease complication type: without complication Qualified Code(s): K50.80 - Crohn's disease of both small and large intestine without complications (4) Tachycardia Priority: Secondary Status: Acute (5) Anemia Priority: Secondary Status: Chronic Qualifiers: Anemia type: iron deficiency Iron deficiency anemia type: chronic blood loss Qualified Code(s): D50.0 - Iron deficiency anemia secondary to blood loss (chronic) (6) Malnutrition Priority: Secondary Status: Chronic (7) DVT (deep venous thrombosis) Priority: Primary Status: Chronic Qualifiers: DVT location: upper extremity Affected thrombotic vein of extremity: unspecified vein of extremity Laterality: left Chronicity: acute Qualified Code(s): I82.622 - Acute embolism and thrombosis of deep veins of left upper extremity (8) DVT prophylaxis Priority: Secondary Status: Acute (9) Hypothyroidism Priority: Secondary Status: Acute Qualifiers: Qualified Code(s): E03.9 - Hypothyroidism, unspecified - Discharge Medications Prescriptions: Daptomycin [Cubicin] 260 mg IVPB Q24H 2 Days OxyCODONE Immed Rel [Roxicodone 5 MG] 10 mg PO Q4H PRN 7 Days PRN Reason: moderate pain 4-7 Home Medications: Levothyroxine [Synthroid] 75 mcg PO DAILY 08/04/15 [History] Mesalamine [Lialda] 2.4 gm PO DAILY 09/30/15 [History] Ondansetron ODT [Zofran ODT] 4 mg SL Q6HR PRN 08/11/16 [History] Albuterol Sulfate [Albuterol Inhaler] 2 puff IH Q6H PRN 09/28/16 [History] Promethazine HCl [Phenergan] 25 mg IJ Q6HR PRN 12/05/16 [History] Vedolizumab [Entyvio (For Outpatient Infusion)] 300 mg IV Q8W 12/05/16 [History] DiphenhydraMINE [Benadryl] 50 mg IV Q4HR PRN 02/28/17 [History] Enoxaparin [Lovenox] 60 mg SQ DAILY 02/28/17 [History] Ferric Carboxymaltose [Injectafer (For Outpatient Infusion)] 750 mg IV AD [History] Daptomycin [Cubicin] 260 mg IVPB Q24H 2 Days 03/04/17 [Rx] OxyCODONE Immed Rel [Roxicodone 5 MG] 10 mg PO Q4H PRN 7 Days 03/04/17 [Rx] Allergies/Adverse Reactions: Allergies Iodinated Contrast Media - Oral and [Iodinated Contrast Media - IV Dye] Allergy (Verified 02/27/17 19:27) Difficulty Breathing ketorolac [From Toradol] Allergy (Verified 02/27/17 19:27) Difficulty Breathing metoprolol [From Lopressor] Allergy (Verified 02/27/17 19:27) Difficulty Breathing morphine Allergy (Verified 02/27/17 19:27) Difficulty Breathing vancomycin Allergy (Verified 02/27/17 19:27) Rash Melyssa rash at beginning of infusion. adalimumab [From Humira] Adverse Reaction (Verified 02/27/17 19:27) Seizure Date of admission: 02/27/17 23:52 Primary care physician: Jose David Hebert, Consults: 02/27/17 23:54 Consult to Infectious Diseases [CONS] Routine Consulting Provider: Infectious Disease Harleen Reason for Consult: bacteremia Call Completed: No Consult to Nutrition [CONS] Routine Comment: tpn Consulting Provider: NUTRITION Reason for Dietary Consult: TPN Start and Manage 03/03/17 11:02 Consult to Supervisor Home Economics [CONS] Stat Reason for SW Consult: Reinitiation of home service including infusion Discharging clinician: Jose David Hebert Anticipated date of discharge: 03/04/17 - Patient Status Disposition: Home Health Service Condition: Fair Functional capacity at discharge: independent ambulation Overall status at discharge: patient is progressing back to baseline - Discharge Instructions Follow Up With: Jose David Hebert DO [Primary Care Provider] - 03/15/17 1:30 pm Additional Instructions: Complete IV antibiotics as scheduled one dose Q24hr x2 doses Follow up with PCP at scheduled appointment. - Diet and Activity Activity: increase activity as tolerated Diet: advance to your usual diet Interval History: Ms. Baltazar 31F past medical history of Crohn's on a biologic agent, recent history of MRSA bacteremia, Escherichia coli and Klebsiella bacteremia, MRSA UTI , recent treatment with daptomycin, indwelling pore extraction resulting in left sided DVT of the upper extremity presented to the emergency department on 02/27/2017 with left-sided chest pain, she also reported a subjective fever of 101.9. Upon examination and chart review she was found to have a recent blood culture positive for Staphylococcus sciuri. Cardiac workup was negative for cardiac cause. Patient was started on daptomycin for treatment of her current bacteremia repeat blood cultures were drawn. She had a indwelling port placed in her right upper chest 1 week prior to this current admission at [facility]. Infectious diseases consulted regarding patient's frequent bacteremias and current antibiotic coverage. Upon admission her lab results were significant for WBC of 11.5, hemoglobin 10.9 with hematocrit 35.1, MCV of 80, neutrophils 10.8, iron studies with iron of 31, percent saturation 7, transfer to an 324, ferritin 8. TSH 12.964, T4 0.60, T3 2.39. She was continued on her IV antibiotic therapy throughout her inpatient stay. Upon admission she was started on pain medications with IV dye lotted which was reevaluated throughout her inpatient stay and eventually discontinued and the patient was continued on her home by mouth medications. On 03/04/2017 the patient was seen about a deems stable for discharge with close follow-up. We will was made with her primary care provider. A prescription for her new reduced dose of Percocets were provided with a 7 day prescription and refills to be provided by her PCP. She is also provided with a prescription for daptomycin for 2 more days. Hospital course: Ms. Baltazar is a 31 year old female - Time Spent with Patient Total time spent providing and/or coordinating discharge services: - Constitutional Vitals: Temp Pulse Resp BP Pulse Ox 98.4 F 95 14 103/69 98 03/04/17 05:24 03/04/17 05:24 03/04/17 05:24 03/04/17 05:24 03/04/17 05:24 General appearance: Present: A&O X 3, pleasant, no acute distress, loss of weight <Altaf Lock - Last Filed: 03/04/17 20:25> Date of Encounter: 03/04/17 Date of admission: 02/27/17 23:52 Primary care physician: Jose David Hebert DO Consults: 02/27/17 23:54 Consult to Infectious Diseases [CONS] Routine Consulting Provider: Infectious Disease Harleen Reason for Consult: bacteremia Call Completed: No Consult to Nutrition [CONS] Routine Comment: tpn Consulting Provider: NUTRITION Reason for Dietary Consult: TPN Start and Manage 03/03/17 11:02 Consult to Supervisor Home Economics [CONS] Stat Reason for SW Consult: Reinitiation of home service including infusion Hospital course: Ms. Baltazar is a 31 year old female - Time Spent with Patient Total time spent providing and/or coordinating discharge services: - Constitutional Vitals: Temp Pulse Resp BP Pulse Ox 98.0 F 72 18 119/67 96 03/04/17 12:06 03/04/17 12:06 03/04/17 12:06 03/04/17 12:06 03/04/17 12:06 - Attending Attestation I examined this patient and my medical decision-making was reviewed with the Resident Physician, Dr. Hebert. I agree with the documented findings, disposition and treatment plan as described except to the extent set forth below. On exam she is in no acute distress awake alert oriented 3. Abdomen is soft tender to palpation with voluntary guarding, no rebound. Plan: We will discharge the patient with home IV daptomycin to complete 7 day course as recommended by ID and close follow-up with primary care physician.
[2017-03-04 12:25] VITALS: BP 119/67
[2017-03-04] MEDS: Ondansetron 4 MG/2 ML VIAL IVP PRN (12:46)
--- NOTE | 2017-03-04 15:26 | Physician Discharge Referral ---
<Jose David Hebert - Last Filed: 03/04/17 15:24> Home Health/Hosp Referral Info Transfer to: Home Health Provider in Charge Post Discharge: PCP - Diagnosis (1) Chest pain Priority: Primary Status: Acute (2) Gram-positive bacteremia Priority: Primary Status: Acute (3) Crohns disease Priority: Secondary Status: Chronic (4) Tachycardia Priority: Secondary Status: Acute (5) Anemia Priority: Secondary Status: Chronic (6) Malnutrition Priority: Secondary Status: Chronic (7) DVT (deep venous thrombosis) Priority: Secondary Status: Chronic (8) DVT prophylaxis Priority: Secondary Status: Acute (9) Hypothyroidism Priority: Secondary Status: Acute - Respiratory Orders Smoking Cessation: Smoking cessation has been advised. For more information, call the [place] Quit Line at 7-912-LCNL-NOW. - Diet/Nutrition Diet/Nutrition Orders: Regular - Activity Activity Orders: Ambulate - Services Needed Following services are medically necessary services: Nursing, Home Health Aide, Home Infusion - Transfer Medications Prescriptions: Daptomycin [Cubicin] 260 mg IVPB Q24H 2 Days OxyCODONE Immed Rel [Roxicodone 5 MG] 10 mg PO Q4H PRN 7 Days PRN Reason: moderate pain 4-7 Home Medications: Levothyroxine [Synthroid] 75 mcg PO DAILY 08/04/15 [History] Mesalamine [Lialda] 2.4 gm PO DAILY 09/30/15 [History] Ondansetron ODT [Zofran ODT] 4 mg SL Q6HR PRN 08/11/16 [History] Albuterol Sulfate [Albuterol Inhaler] 2 puff IH Q6H PRN 09/28/16 [History] Promethazine HCl [Phenergan] 25 mg IJ Q6HR PRN 12/05/16 [History] Vedolizumab [Entyvio (For Outpatient Infusion)] 300 mg IV Q8W 12/05/16 [History] DiphenhydraMINE [Benadryl] 50 mg IV Q4HR PRN 02/28/17 [History] Enoxaparin [Lovenox] 60 mg SQ DAILY 02/28/17 [History] Ferric Carboxymaltose [Injectafer (For Outpatient Infusion)] 750 mg IV AD [History] Daptomycin [Cubicin] 260 mg IVPB Q24H 2 Days 03/04/17 [Rx] OxyCODONE Immed Rel [Roxicodone 5 MG] 10 mg PO Q4H PRN 7 Days 03/04/17 [Rx] Allergies/Adverse Reactions: Allergies Iodinated Contrast Media - Oral and [Iodinated Contrast Media - IV Dye] Allergy (Verified 02/27/17 19:27) Difficulty Breathing ketorolac [From Toradol] Allergy (Verified 02/27/17 19:27) Difficulty Breathing metoprolol [From Lopressor] Allergy (Verified 02/27/17 19:27) Difficulty Breathing morphine Allergy (Verified 02/27/17 19:27) Difficulty Breathing vancomycin Allergy (Verified 02/27/17 19:27) Rash Melyssa rash at beginning of infusion. adalimumab [From Humira] Adverse Reaction (Verified 02/27/17 19:27) Seizure Certification: Further, I certify that my clinical findings support that this patient is homebound (i.e. absences from home require considerable and taxing effort and are for medical reasons or holiness services or infrequently or short duration when for other reasons) because: Homebound Reason: Post-surgery restriction and or conditions limit ability to leave home, Leaving home requires considerable and taxing effort due to condition Attestation: My signature below is to certify that this patient is under my care and that I, or nurse practitioner, or a physician's home based assistant working with me, has a face-to -face encounter with this patient. <Altaf Lock - Last Filed: 03/04/17 19:47> - Respiratory Orders Smoking Cessation: Smoking cessation has been advised. For more information, call the [place] Tobacco Quit Line at 7-456-YLDH-NOW. Certification: Further, I certify that my clinical findings support that this patient is homebound (i.e. absences from home require considerable and taxing effort and are for medical reasons or holiness services or infrequently or short duration when for other reasons) because: Attestation: My signature below is to certify that this patient is under my care and that I, or nurse practitioner, or a physician's home based assistant working with me, has a face-to -face encounter with this patient. I examined this patient and my medical decision-making was reviewed with the Resident Physician, Dr. Hebert. I agree with the documented findings, disposition and treatment plan as described.
[2017-03-04] MEDS ORDERED: SODIUM CHLORIDE 0.9% IVPB SCH (16:00)
[2017-03-04] MEDS ORDERED: DAPTOMYCIN IVPB SCH (16:00)
== END 2017-03-04 17:07 | disposition home health service (06) | DRG 724 ==
LOC: EMEROO 19:22 → SUATTDRO 23:52 → 3ANU 23:52
PROVIDERS: ADMIT Internal Medicine; ATTEND Internal Medicine

== ENCOUNTER 2017-05-03 12:30 | Inpatient (IN) ==
[2017-05-03] MEDS ORDERED: *HR* HYDROmorphone (PF) 1 MG/ML SYRINGE IVP ONE ×2 (12:49→15:06)
[2017-05-03] MEDS ORDERED: Promethazine 12.5 MG in 0.9 % Sodium Chloride 50 ML IVPB ONE (12:50)
--- NOTE | 2017-05-03 12:51 | Emergency Department Note ---
Disposition Clinical Impression: Anemia, Hypokalemia, Elevated lactic acid level Disposition: Admitted As Inpatient Condition: Good General Adult HPI - General Chief complaint: ED Recheck/Abnormal Lab/Rx Stated complaint: Low Hemoglobin Time Seen by Provider: 05/03/17 12:42 Source: patient, family Limitations: no limitations - History of Present Illness Pain Scale: 10 - Related Data Home Medications Medication Instructions Recorded Confirmed Levothyroxine [Synthroid] 75 mcg PO DAILY 08/04/15 05/03/17 Mesalamine [Lialda] 2.4 gm PO DAILY 09/30/15 05/03/17 Ondansetron ODT [Zofran ODT] 4 mg SL Q6HR PRN 08/11/16 05/03/17 Albuterol Sulfate [Albuterol 2 puff IH Q6H PRN 09/28/16 05/03/17 Inhaler] Promethazine HCl [Phenergan] 25 mg IV Q6HR PRN 12/05/16 05/03/17 Vedolizumab [Entyvio (For 300 mg IV Q8W 12/05/16 05/03/17 Outpatient Infusion)] DiphenhydraMINE [Benadryl] 50 mg IV Q4HR PRN 02/28/17 05/03/17 Budesonide [Entocort EC] 9 mg PO DAILY 05/03/17 05/03/17 Enoxaparin [Lovenox] 50 mg SQ Q12HR 05/03/17 05/03/17 Levaquin mg IV DAILY 05/03/17 Previous Rx's Medication Instructions Recorded OxyCODONE Immed Rel [Roxicodone 5 10 mg PO Q4H PRN 7 Days 03/04/17 MG] Allergies Allergy/AdvReac Type Severity Reaction Status Date / Time Iodinated Contrast- Oral and Allergy Difficulty Verified 04/05/17 13:00 IV Dye Breathing [Iodinated Contrast Media - IV Dye] ketorolac [From Toradol] Allergy Difficulty Verified 04/05/17 13:00 Breathing metoprolol [From Lopressor] Allergy Difficulty Verified 04/05/17 13:00 Breathing morphine Allergy Difficulty Verified 04/05/17 13:00 Breathing vancomycin Allergy Rash Verified 04/05/17 13:00 adalimumab [From Humira] AdvReac Seizure Verified 04/05/17 13:00 Past Medical History - Past Medical History Medical history: Reports: arthritis, asthma, GERD, GI bleed, kidney stones, renal disease, seizures, thyroid disease, other Surgical history: Reports: appendectomy, cholecystectomy, colectomy, other Psychiatric history: Reports: no psych history [employer] history: Reports: no [employer] history, endometriosis - Social History Smoking Status: Never smoker Smokeless Tobacco Status: No Alcohol use: Reports: none Drug use: Reports: none Physical Exam - General Limitations: no limitations General appearance: alert, in no apparent distress Course Vital Signs Temperature 99.2 F 05/03/17 12:38 Pulse Rate 138 05/03/17 12:38 Respiratory Rate 16 05/03/17 12:38 Blood Pressure 130/76 05/03/17 12:38 O2 Sat by Pulse Oximetry 100 05/03/17 12:38 Temperature 98.6 F 05/03/17 17:45 Pulse Rate 109 05/03/17 17:45 Respiratory Rate 18 05/03/17 17:45 Blood Pressure 127/86 05/03/17 17:45 O2 Sat by Pulse Oximetry 100 05/03/17 17:45 Oxygen Delivery Oxygen Delivery Room Air Medical Decision Making - Lab Data Result diagrams: 05/03/17 13:08 05/03/17 13:08 Lab Results 05/03/17 05/03/17 05/03/17 Range/Units 13:08 13:08 13:08 WBC 8.9 (4.3-11.1) K/mcL RBC 2.91 L (3.82-4.97) M/mcL Hgb 6.2 L (11.5-15.4) g/dL Hct 20.9 L (35.3-44.9) % MCV 71.8 L (83.0-100.0) fL MCH 21.3 L (28.0-33.3) pg MCHC 29.7 L (31.6-35.5) g/dL RDW 17.6 H (11.5-14.5) % Plt Count 346 (140-400) K/mcL MPV 10.2 (9.4-12.4) fL Immature Gran % 0.6 (0-4) % Seg Neutrophils % 77.0 % Lymphocytes % 11.8 % Monocytes % 9.4 % Eosinophils % 1.1 % Basophils % 0.1 % Neutrophils # 6.8 (1.6-8.9) K/mcL Lymphocytes # 1.1 (0.6-4.6) K/mcL Monocytes # 0.8 (0.0-1.3) K/mcL Eosinophils # 0.1 (0.0-0.6) K/mcL Basophils # 0.0 (0.0-0.2) K/mcL PT 12.0 (9.4-12.1) Seconds INR 1.1 APTT 29.6 (26.0-36.0) Seconds Sodium 140 (136-145) mEq/L Potassium 2.5 L* (3.5-4.5) mEq/L Chloride 102 (98-109) mEq/L Carbon Dioxide 27 (19-29) mEq/L BUN 7 (7-20) mg/dL Creatinine 0.76 (0.57-1.11) mg/dL Est GFR ( Amer) > 60 (> 60) Est GFR (Non-Af Amer) > 60 (> 60) BUN/Creatinine Ratio 9 (6-26) Glucose 121 H (70-99) mg/dL Calculated Osmolality 289 (280-300) Lactic Acid (0.5-2.2) mmol/L Calcium 9.3 (8.6-10.8) mg/dL Magnesium (1.6-2.6) mg/dL Total Bilirubin 0.3 (0.2-1.2) mg/dL AST 11 (5-34) Units/L ALT 17 (0-55) Units/L Alkaline Phosphatase 61 (38-126) Units/L Serum Total Protein 6.5 (6.0-8.3) g/dL Albumin 2.9 L (3.5-5.0) g/dL Globulin 3.6 H (2.4-3.5) g/dL Albumin/Globulin Ratio 0.8 L (1.1-2.2) Lipase 8 (8-78) Units/L Stool Occult Blood (Negative) Blood Type Antibody Screen Crossmatch 05/03/17 05/03/17 05/03/17 Range/Units 13:08 13:08 13:08 WBC (4.3-11.1) K/mcL RBC (3.82-4.97) M/mcL Hgb (11.5-15.4) g/dL Hct (35.3-44.9) % MCV (83.0-100.0) fL MCH (28.0-33.3) pg MCHC (31.6-35.5) g/dL RDW (11.5-14.5) % Plt Count (140-400) K/mcL MPV (9.4-12.4) fL Immature Gran % (0-4) % Seg Neutrophils % % Lymphocytes % % Monocytes % % Eosinophils % % Basophils % % Neutrophils # (1.6-8.9) K/mcL Lymphocytes # (0.6-4.6) K/mcL Monocytes # (0.0-1.3) K/mcL Eosinophils # (0.0-0.6) K/mcL Basophils # (0.0-0.2) K/mcL PT (9.4-12.1) Seconds INR APTT (26.0-36.0) Seconds Sodium (136-145) mEq/L Potassium (3.5-4.5) mEq/L Chloride (98-109) mEq/L Carbon Dioxide (19-29) mEq/L BUN (7-20) mg/dL Creatinine (0.57-1.11) mg/dL Est GFR ( Amer) (> 60) Est GFR (Non-Af Amer) (> 60) BUN/Creatinine Ratio (6-26) Glucose (70-99) mg/dL Calculated Osmolality (280-300) Lactic Acid 2.9 H (0.5-2.2) mmol/L Calcium (8.6-10.8) mg/dL Magnesium 2.1 (1.6-2.6) mg/dL Total Bilirubin (0.2-1.2) mg/dL AST (5-34) Units/L ALT (0-55) Units/L Alkaline Phosphatase (38-126) Units/L Serum Total Protein (6.0-8.3) g/dL Albumin (3.5-5.0) g/dL Globulin (2.4-3.5) g/dL Albumin/Globulin Ratio (1.1-2.2) Lipase (8-78) Units/L Stool Occult Blood (Negative) Blood Type O POSITIVE Antibody Screen NEGATIVE Crossmatch See Detail 05/03/17 05/03/17 Range/Units 13:41 15:32 WBC (4.3-11.1) K/mcL RBC (3.82-4.97) M/mcL Hgb (11.5-15.4) g/dL Hct (35.3-44.9) % MCV (83.0-100.0) fL MCH (28.0-33.3) pg MCHC (31.6-35.5) g/dL RDW (11.5-14.5) % Plt Count (140-400) K/mcL MPV (9.4-12.4) fL Immature Gran % (0-4) % Seg Neutrophils % % Lymphocytes % % Monocytes % % Eosinophils % % Basophils % % Neutrophils # (1.6-8.9) K/mcL Lymphocytes # (0.6-4.6) K/mcL Monocytes # (0.0-1.3) K/mcL Eosinophils # (0.0-0.6) K/mcL Basophils # (0.0-0.2) K/mcL PT (9.4-12.1) Seconds INR APTT (26.0-36.0) Seconds Sodium (136-145) mEq/L Potassium (3.5-4.5) mEq/L Chloride (98-109) mEq/L Carbon Dioxide (19-29) mEq/L BUN (7-20) mg/dL Creatinine (0.57-1.11) mg/dL Est GFR ( Amer) (> 60) Est GFR (Non-Af Amer) (> 60) BUN/Creatinine Ratio (6-26) Glucose (70-99) mg/dL Calculated Osmolality (280-300) Lactic Acid 1.6 (0.5-2.2) mmol/L Calcium (8.6-10.8) mg/dL Magnesium (1.6-2.6) mg/dL Total Bilirubin (0.2-1.2) mg/dL AST (5-34) Units/L ALT (0-55) Units/L Alkaline Phosphatase (38-126) Units/L Serum Total Protein (6.0-8.3) g/dL Albumin (3.5-5.0) g/dL Globulin (2.4-3.5) g/dL Albumin/Globulin Ratio (1.1-2.2) Lipase (8-78) Units/L Stool Occult Blood Negative (Negative) Blood Type Antibody Screen Crossmatch Critical Care Time Critical Care Time: Yes Total Critical Care Time: 45 Attestation: Patient presented with abdominal pain. Potassium required parenteral replacement. She was anemic requiring transfusion. Admission Attestation Statement - Attestation Attestation: I examined this patient and my medical decision-making was reviewed with the [employer]Y HELPER/PA/Advanced Practice Nurse/Resident Physician. I agree with the documented findings, disposition and treatment plan as described except to the extent set forth below. [id number] time provided Patient complains of generalized abdominal pain, nausea, vomiting. She is currently getting Levaquin therapy through her port for a recent UTI and pneumonia. She was admitted to [facility] and discharged 4 days ago. She is tachycardic but otherwise in no acute distress on exam.
[2017-05-03 13:18] LABS: Basophils % 0.1 %; Eosinophils # 0.1 K/mcL (0.0-0.6); Eosinophils % 1.1 %; Hematocrit 20.9 % (35.3-44.9); Immature Granulocytes % 0.6 % (0-4); Lymphocytes # 1.1 K/mcL (0.6-4.6); Lymphocytes % 11.8 %; Mean Corpuscular HGB Conc 29.7 g/dL (31.6-35.5); Mean Corpuscular Hemoglobin 21.3 pg (28.0-33.3); Mean Corpuscular Volume 71.8 fL (83.0-100.0); Mean Platelet Volume 10.2 fL (9.4-12.4); Monocytes # 0.8 K/mcL (0.0-1.3); Monocytes % 9.4 %; Neutrophils # 6.8 K/mcL (1.6-8.9); Platelet Count 346 K/mcL (140-400); Red Blood Count 2.91 M/mcL (3.82-4.97); Red Cell Distribution Width 17.6 % (11.5-14.5)
--- NOTE | 2017-05-03 13:20 | Emergency Department Note ---
Disposition Clinical Impression: Hypokalemia, Elevated lactic acid level Anemia Qualifiers: Anemia type: unspecified type Qualified Code(s): D64.9 - Anemia, unspecified Disposition: Admitted As Inpatient Condition: Good Time of Disposition: 14:35 Recheck wound or abnormal lab - General Chief Complaint: ED Recheck/Abnormal Lab/Rx Stated Complaint: Low Hemoglobin Time Seen by Provider: 05/03/17 12:42 Source: patient, family Limitations: no limitations Nursing Notes Reviewed: Yes Vital Signs Reviewed: Yes - History of Present Illness HPI Narrative: 31-year-old female history of Crohn's disease presents to the ED for reported low hemoglobin 6.3. She was recently discharged from [facility] for lung infection and UTI last Sunday 04/29, at that time hgb was 8.0. Yesterday her home health nurse came to draw her scheduled biweekly labs and notified that her hemoglobin is low at 6.3.. She is currently receiving Levaquin through her port where she receives TPN. Denies any changes to her medications. Patient reports some lightheadedness as well as bloody stool the past few days. She also reports some minimal vaginal bleeding over the weekend that resolved. She also reports some occasional epistaxis that has also resolved. Patient takes Lovenox for upper extremity DVT. She denies any headache or any recent falls. She reports diffuse abdominal cramping that feels like her Crohn's, she normally takes oxycodone has also been very nauseated. History of appendectomy, cholecystectomy, bowel resection. She has a history of low iron. She also has had multiple blood transfusions the most recent in January. - Related Data Home Medications Medication Instructions Recorded Confirmed Levothyroxine [Synthroid] 75 mcg PO DAILY 08/04/15 05/03/17 Mesalamine [Lialda] 2.4 gm PO DAILY 09/30/15 05/03/17 Ondansetron ODT [Zofran ODT] 4 mg SL Q6HR PRN 08/11/16 05/03/17 Albuterol Sulfate [Albuterol 2 puff IH Q6H PRN 09/28/16 05/03/17 Inhaler] Promethazine HCl [Phenergan] 25 mg IV Q6HR PRN 12/05/16 05/03/17 Vedolizumab [Entyvio (For 300 mg IV Q8W 12/05/16 05/03/17 Outpatient Infusion)] DiphenhydraMINE [Benadryl] 50 mg IV Q4HR PRN 02/28/17 05/03/17 Budesonide [Entocort EC] 9 mg PO DAILY 05/03/17 05/03/17 Enoxaparin [Lovenox] 50 mg SQ Q12HR 05/03/17 05/03/17 Levaquin mg IV DAILY 05/03/17 Previous Rx's Medication Instructions Recorded OxyCODONE Immed Rel [Roxicodone 5 10 mg PO Q4H PRN 7 Days 03/04/17 MG] Allergies Allergy/AdvReac Type Severity Reaction Status Date / Time Iodinated Contrast- Oral and Allergy Difficulty Verified 04/05/17 13:00 IV Dye Breathing [Iodinated Contrast Media - IV Dye] ketorolac [From Toradol] Allergy Difficulty Verified 04/05/17 13:00 Breathing metoprolol [From Lopressor] Allergy Difficulty Verified 04/05/17 13:00 Breathing morphine Allergy Difficulty Verified 04/05/17 13:00 Breathing vancomycin Allergy Rash Verified 04/05/17 13:00 adalimumab [From Humira] AdvReac Seizure Verified 04/05/17 13:00 All systems ED: reviewed and negative except as stated. Constitutional: Reports: weakness. Denies: fever, chills Cardiovascular: Denies: chest pain Respiratory: Reports: cough, dyspnea Gastrointestinal: Reports: abdominal pain, nausea, hematochezia. Denies: vomiting Genitourinary: Reports: abnormal menses. Denies: urgency, dysuria Musculoskeletal: Denies: back pain, neck pain Integumentary: Denies: rash, abrasion Neurological: Denies: headache Past Medical History - Past Medical History Attestation: Yes The following information was validated with the patient. 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 SUPERVISOR history, endometriosis - Social History Smoking Status: Never smoker Smokeless Tobacco Status: No Alcohol use: Reports: none Drug use: Reports: none Physical Exam - General Limitations: no limitations General appearance: alert, in no apparent distress - Head Head exam: atraumatic, normocephalic, normal inspection - Eye Eye exam: Present: normal appearance, PERRL, EOMI, other (Pale conjunctiva) - ENT ENT exam: normal exam, normal oropharynx, mucous membranes moist - Neck Neck exam: Present: normal inspection, full ROM, trachea midline - Chest Chest inspection: Present: normal inspection, symmetric chest wall rise, other ( Port in the right chest wall) - Respiratory Respiratory exam: Present: normal lung sounds bilaterally. Absent: respiratory distress - Cardiovascular Cardiovascular exam: Present: regular rate, normal rhythm, tachycardia, normal heart sounds - Abdominal Exam Abdominal exam: Present: soft, tenderness, scar (Lower abdomen, midline). 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 Absent: hemorrhoids - Extremities Exam Extremities exam: Present: normal inspection, full ROM. Absent: tenderness, pedal edema, calf tenderness - Neurological Exam Neurological exam: Present: alert, oriented X3 - Psychiatric Psychiatric exam: Present: normal affect, normal mood - Skin Skin exam: Present: warm, dry, intact, pallor Course Course Narrative: 31-year-old female presents with low hemoglobin. She has a history of Crohn's with bowel resection. Patient was recently admitted for lung infection and presents with sinus tachycardia 130s. She also has a low-grade temp 99.2. I exam patient appears pale. Her conjunctiva as pale as well. Her skin is warm with no signs of petechiae. Lungs are clear to auscultation bilaterally. Her abdomen is soft and diffusely tender. Her tachycardia may be a compensation for her blood loss but due to recent infection concern for possible sepsis. Sepsis workup initiated. We will start IV fluids. Type screen and a stool hemoccult sent. Pain control with dilaudid and benadryl. - Reevaluation(s) Reevaluation #1: Potassium 2.5 critical low. Magnesium level is normal. 40 mEQ KCl ordered PO and IV. Her hemoglobin is 6.2. Her baseline appears around 9 to 10. She denies any cardiac disease. We will transfused 2 units of packed red blood cells. Consent was obtained in the room. Time: 13:39 Reevaluation #2: Review of her hospital labs reveals a low iron of 12 and 2% saturation. She was admitted for exacerbation of her Crohn's Disease but also found to have fever, hypokalemia, and bacteremia with multiple organisms. Hemoccult is negative for blood. Will transfuse patient and admit to the hospital for hypokalemia and anemia. Patient is in agreement with plan. She has received appropriate fluid resuscitation with 2L normal saline and now pRBC. Final impression is acute on chronic anemia and hypokalemia. Patient is in agreement with plan for admission. Another dose of dilaudid and benadryl ordered. Time: 14:17 - Consultations Consultation #1: Spoke with on-call hospitalist sobeida Rowland to admit for acute on chronic anemia and hypokalemia. No further orders at this time Time: 14:59 Vital Signs Temperature 99.2 F 05/03/17 12:38 Pulse Rate 138 05/03/17 12:38 Respiratory Rate 16 05/03/17 12:38 Blood Pressure 130/76 05/03/17 12:38 O2 Sat by Pulse Oximetry 100 05/03/17 12:38 Temperature 99.2 F 05/03/17 12:38 Pulse Rate 116 05/03/17 14:57 Respiratory Rate 18 05/03/17 14:57 Blood Pressure 130/85 05/03/17 14:57 O2 Sat by Pulse Oximetry 96 05/03/17 14:57 Oxygen Delivery Oxygen Delivery Room Air Recheck wound or abnormal lab - Medical Records Medical records reviewed: Yes I reviewed the patient's medical records. - Lab Data Lab results reviewed: Yes I reviewed the patient's lab results. Result diagrams: 05/03/17 13:08 05/03/17 13:08 Lab Results 05/03/17 05/03/17 05/03/17 Range/Units 13:08 13:08 13:08 WBC 8.9 (4.3-11.1) K/mcL RBC 2.91 L (3.82-4.97) M/mcL Hgb 6.2 L (11.5-15.4) g/dL Hct 20.9 L (35.3-44.9) % MCV 71.8 L (83.0-100.0) fL MCH 21.3 L (28.0-33.3) pg MCHC 29.7 L (31.6-35.5) g/dL RDW 17.6 H (11.5-14.5) % Plt Count 346 (140-400) K/mcL MPV 10.2 (9.4-12.4) fL Immature Gran % 0.6 (0-4) % Seg Neutrophils % 77.0 % Lymphocytes % 11.8 % Monocytes % 9.4 % Eosinophils % 1.1 % Basophils % 0.1 % Neutrophils # 6.8 (1.6-8.9) K/mcL Lymphocytes # 1.1 (0.6-4.6) K/mcL Monocytes # 0.8 (0.0-1.3) K/mcL Eosinophils # 0.1 (0.0-0.6) K/mcL Basophils # 0.0 (0.0-0.2) K/mcL PT 12.0 (9.4-12.1) Seconds INR 1.1 APTT 29.6 (26.0-36.0) Seconds Sodium 140 (136-145) mEq/L Potassium 2.5 L* (3.5-4.5) mEq/L Chloride 102 (98-109) mEq/L Carbon Dioxide 27 (19-29) mEq/L BUN 7 (7-20) mg/dL Creatinine 0.76 (0.57-1.11) mg/dL Est GFR ( Amer) > 60 (> 60) Est GFR (Non-Af Amer) > 60 (> 60) BUN/Creatinine Ratio 9 (6-26) Glucose 121 H (70-99) mg/dL Calculated Osmolality 289 (280-300) Lactic Acid (0.5-2.2) mmol/L Calcium 9.3 (8.6-10.8) mg/dL Magnesium (1.6-2.6) mg/dL Total Bilirubin 0.3 (0.2-1.2) mg/dL AST 11 (5-34) Units/L ALT 17 (0-55) Units/L Alkaline Phosphatase 61 (38-126) Units/L Serum Total Protein 6.5 (6.0-8.3) g/dL Albumin 2.9 L (3.5-5.0) g/dL Globulin 3.6 H (2.4-3.5) g/dL Albumin/Globulin Ratio 0.8 L (1.1-2.2) Lipase 8 (8-78) Units/L Stool Occult Blood (Negative) Blood Type Antibody Screen Crossmatch 05/03/17 05/03/17 05/03/17 Range/Units 13:08 13:08 13:08 WBC (4.3-11.1) K/mcL RBC (3.82-4.97) M/mcL Hgb (11.5-15.4) g/dL Hct (35.3-44.9) % MCV (83.0-100.0) fL MCH (28.0-33.3) pg MCHC (31.6-35.5) g/dL RDW (11.5-14.5) % Plt Count (140-400) K/mcL MPV (9.4-12.4) fL Immature Gran % (0-4) % Seg Neutrophils % % Lymphocytes % % Monocytes % % Eosinophils % % Basophils % % Neutrophils # (1.6-8.9) K/mcL Lymphocytes # (0.6-4.6) K/mcL Monocytes # (0.0-1.3) K/mcL Eosinophils # (0.0-0.6) K/mcL Basophils # (0.0-0.2) K/mcL PT (9.4-12.1) Seconds INR APTT (26.0-36.0) Seconds Sodium (136-145) mEq/L Potassium (3.5-4.5) mEq/L Chloride (98-109) mEq/L Carbon Dioxide (19-29) mEq/L BUN (7-20) mg/dL Creatinine (0.57-1.11) mg/dL Est GFR ( Amer) (> 60) Est GFR (Non-Af Amer) (> 60) BUN/Creatinine Ratio (6-26) Glucose (70-99) mg/dL Calculated Osmolality (280-300) Lactic Acid 2.9 H (0.5-2.2) mmol/L Calcium (8.6-10.8) mg/dL Magnesium 2.1 (1.6-2.6) mg/dL Total Bilirubin (0.2-1.2) mg/dL AST (5-34) Units/L ALT (0-55) Units/L Alkaline Phosphatase (38-126) Units/L Serum Total Protein (6.0-8.3) g/dL Albumin (3.5-5.0) g/dL Globulin (2.4-3.5) g/dL Albumin/Globulin Ratio (1.1-2.2) Lipase (8-78) Units/L Stool Occult Blood (Negative) Blood Type O POSITIVE Antibody Screen NEGATIVE Crossmatch See Detail 05/03/17 Range/Units 13:41 WBC (4.3-11.1) K/mcL RBC (3.82-4.97) M/mcL Hgb (11.5-15.4) g/dL Hct (35.3-44.9) % MCV (83.0-100.0) fL MCH (28.0-33.3) pg MCHC (31.6-35.5) g/dL RDW (11.5-14.5) % Plt Count (140-400) K/mcL MPV (9.4-12.4) fL Immature Gran % (0-4) % Seg Neutrophils % % Lymphocytes % % Monocytes % % Eosinophils % % Basophils % % Neutrophils # (1.6-8.9) K/mcL Lymphocytes # (0.6-4.6) K/mcL Monocytes # (0.0-1.3) K/mcL Eosinophils # (0.0-0.6) K/mcL Basophils # (0.0-0.2) K/mcL PT (9.4-12.1) Seconds INR APTT (26.0-36.0) Seconds Sodium (136-145) mEq/L Potassium (3.5-4.5) mEq/L Chloride (98-109) mEq/L Carbon Dioxide (19-29) mEq/L BUN (7-20) mg/dL Creatinine (0.57-1.11) mg/dL Est GFR ( Amer) (> 60) Est GFR (Non-Af Amer) (> 60) BUN/Creatinine Ratio (6-26) Glucose (70-99) mg/dL Calculated Osmolality (280-300) Lactic Acid (0.5-2.2) mmol/L Calcium (8.6-10.8) mg/dL Magnesium (1.6-2.6) mg/dL Total Bilirubin (0.2-1.2) mg/dL AST (5-34) Units/L ALT (0-55) Units/L Alkaline Phosphatase (38-126) Units/L Serum Total Protein (6.0-8.3) g/dL Albumin (3.5-5.0) g/dL Globulin (2.4-3.5) g/dL Albumin/Globulin Ratio (1.1-2.2) Lipase (8-78) Units/L Stool Occult Blood Negative (Negative) Blood Type Antibody Screen Crossmatch - Radiology Data Radiology results reviewed: Yes I reviewed the patient's radiology results. Chest X-Ray 05/03/17 12:48 IMPRESSION: No acute cardiopulmonary findings. D/ / Rut Patterson MD / Rut Patterson MD Interpreting Provider: Rut Patterson MD - EKG Data EKG attestation: Yes I reviewed and interpreted this EKG. EKG results narrative: EKG performed 1320 sinus tachycardia 124 bpm, good R-R wave progression, there appears to be lead reversal on V1 and V2, normal axis, baseline artifact. No ST elevations or depressions. Intervals are within normal limits HI interval 138 QRS 90 QT QTC 333 407. Compared to old EKG performed 04/11/2017 shows consistent findings sinus rhythm 80 bpm. No acute ischemic changes.
[2017-05-03 13:29] LABS: INR 1.1
[2017-05-03 13:32] LABS: Activated Partial Thrombo Time 29.6 Seconds (26.0-36.0)
[2017-05-03 13:36] LABS: Hemoglobin 6.2 g/dL (11.5-15.4)
[2017-05-03 13:37] LABS: Alanine Aminotransferase 17 Units/L (0-55); Albumin 2.9 g/dL (3.5-5.0); Albumin/Globulin Ratio 0.8 (1.1-2.2); Alkaline Phosphatase 61 Units/L (38-126); Aspartate Amino Transferase 11 Units/L (5-34); BUN/Creatinine Ratio 9 (6-26); Bilirubin,Total 0.3 mg/dL (0.2-1.2); Blood Urea Nitrogen 7 mg/dL (7-20); Calcium 9.3 mg/dL (8.6-10.8); Carbon Dioxide 27 mEq/L (19-29); Chloride 102 mEq/L (98-109); Globulin 3.6 g/dL (2.4-3.5); Glucose 121 mg/dL (70-99); Lipase 8 Units/L (8-78); Osmolality,Calculated 289 (280-300); Sodium 140 mEq/L (136-145); Total Protein 6.5 g/dL (6.0-8.3); eGFR For African Americans > 60 (> 60); eGFR For Non-African Americans > 60 (> 60)
[2017-05-03 13:39] LABS: Potassium 2.5 mEq/L (3.5-4.5)
[2017-05-03] MEDS: 0.9 % Sodium Chloride 1,000 ML IVC SCH ×2 (13:48→14:53)
[2017-05-03] MEDS ORDERED: Potassium Chloride 40 MEQ, Lidocaine 1% 2 ML in D5% in Water 500 ML IVPB ONE (14:14)
[2017-05-03] MEDS ORDERED: 0.9 % Sodium Chloride 500 ML ONE (16:36)
[2017-05-03] MEDS ORDERED: *HR* HYDROmorphone (PF) 1 MG/ML SYRINGE IVP PRN ×2 (17:14→18:01)
[2017-05-03] MEDS ORDERED: Acetaminophen 325 MG TABLET PO PRN (17:14)
[2017-05-03] MEDS ORDERED: Naloxone 0.4 MG/ML INJ IVP PRN (17:14)
[2017-05-03] MEDS: Pantoprazole 40 MG VIAL IVP SCH (18:00)
--- NOTE | 2017-05-03 18:20 | Internal Med History&Physical ---
<OrlandoaimeClyde T - Last Filed: 05/03/17 18:57> Date of Encounter: 05/03/17 Internal Medicine - H&P: HPI History of present illness: Ms. Baltazar is a 31 year old female Internal Medicine - H&P: Meds Levothyroxine [Synthroid] 75 mcg PO DAILY 08/04/15 [History] Mesalamine [Lialda] 2.4 gm PO DAILY 09/30/15 [History] Ondansetron ODT [Zofran ODT] 4 mg SL Q6HR PRN 08/11/16 [History] Albuterol Sulfate [Albuterol Inhaler] 2 puff IH Q6H PRN 09/28/16 [History] Promethazine HCl [Phenergan] 25 mg IV Q6HR PRN 12/05/16 [History] Vedolizumab [Entyvio (For Outpatient Infusion)] 300 mg IV Q8W 12/05/16 [History] DiphenhydraMINE [Benadryl] 50 mg IV Q4HR PRN 02/28/17 [History] OxyCODONE Immed Rel [Roxicodone 5 MG] 10 mg PO Q4H PRN 7 Days 03/04/17 [Rx] Budesonide [Entocort EC] 9 mg PO DAILY 05/03/17 [History] Enoxaparin [Lovenox] 50 mg SQ Q12HR 05/03/17 [History] Levaquin mg IV DAILY 05/03/17 [History] Allergies Iodinated Contrast- Oral and IV Dye [Iodinated Contrast Media - IV Dye] Allergy (Verified 04/05/17 13:00) Difficulty Breathing ketorolac [From Toradol] Allergy (Verified 04/05/17 13:00) Difficulty Breathing metoprolol [From Lopressor] Allergy (Verified 04/05/17 13:00) Difficulty Breathing morphine Allergy (Verified 04/05/17 13:00) Difficulty Breathing vancomycin Allergy (Verified 04/05/17 13:00) Rash Melyssa rash at beginning of infusion. adalimumab [From Humira] Adverse Reaction (Verified 04/05/17 13:00) Seizure All Systems PM: A 10-system review of systems was performed and is negative for pertinent findings except as documented above in the HPI. - Constitutional Vitals: Temp Pulse Resp BP Pulse Ox 98.6 F 109 18 127/86 100 05/03/17 17:45 05/03/17 17:45 05/03/17 17:45 05/03/17 17:45 05/03/17 17:45 Internal Med - H&P Results - Labs CBC & Chem 7: 05/03/17 13:08 05/03/17 13:08 - Attending Attestation Seen and examined independently 31 F with PMH of Crohns disease, Opiate dependence, malnutrition on chronic TPN , Chronic anemia, recurrent bacteremia Presented due to home nurse noticing drop in her HB. Patient was apparently admitted to another hospital for sepsis/bacteremia/UTI, where her port was changed and she was started on Levaquin. She states her discharging Hb was 8. She endorsed diarrhea and vomiting Work up in ER revealed Hb of 6.2 and potassium of 2.5, potassium has been replaced aggressively by ER, RBCs have been ordered Physical exam is unremarkable A/P: Acute on Chronic anemia: patient on Lovenox for DVT, hold LOvenox, GI eval for GIB. Monitor HB. Replace K, repeat Chem, resume home meds, continue TPN Rest of details as in [employer] documentation which I agree with <Eleni Medeiros - Last Filed: 05/03/17 21:01> Date of Encounter: 05/03/17 Time of Encounter: 18:14 Assessment and Plan (1) Hypokalemia Current visit: Yes Status: Acute Potassium of 2.5 today. Patient reports she gets potassium in her TPN and they have increased it recently. 40mEq of PO potassium and 40mEq of IVPB potassium ordered by ED. Recheck chemistry tonight at 8pm. Continuous satellite project site monitor. (2) Anemia Current visit: Yes Status: Acute Patient with Hgb of 6.2. She reports bloody stools on and off, bloody noses on and off and vaginal bleeding on and off. She reports she has been taking lovenox for the last 2 months for a DVT in her LUE. Hold lovenox Transfuse 2 units packed RBCs ordered by ED Check H/H q 6hrs consult to gastroenterology Qualifiers: Anemia type: unspecified type Qualified Code(s): D64.9 - Anemia, unspecified (3) On total parenteral nutrition (TPN) Current visit: Yes Status: Acute Patient has port where she gets TPN at home. She reports she has been getting TPN since August as she has frequent nausea, vomiting and diarrhea. Consult to Nutrition for TPN. (4) Abdominal pain Current visit: Yes Status: Chronic Patient reports chronic abdominal pain related to her crohn's disease and takes oxycodone at home, but reports she has not been able to keep it down recently. She reports what works best for her is 2mg of dilaudid IVP every 2hrs. Will give 2mg dilaudid Q4hr and her home dose of oxycodone. She is on medication for nausea as well. narcan prn for respiratory depression. Qualifiers: Abdominal location: generalized Qualified Code(s): R10.84 - Generalized abdominal pain (5) Nausea & vomiting Current visit: Yes Status: Acute Patient reports chronic nausea and vomiting related to her crohn's disease, but reports it has been worse over the last few weeks since her hospitalization at [facility]. Phenergan IVP PRN, Benedryl IVP PRN. Qualifiers: Vomiting type: unspecified Vomiting Intractability: unspecified Qualified Code(s): R11.2 - Nausea with vomiting, unspecified (6) Crohns disease Current visit: Yes Status: Chronic Patient with Crohns disease, on Lialda and s/p partial bowel resection. She is on chronic TPN as she has frequent and chronic nausea, vomiting and diarrhea. Continue home dose of Lialda. Consulted Dr. Mackey of gastroenterology. Qualifiers: Gastrointestinal tract location: unspecified location Digestive disease complication type: unspecified complication Qualified Code(s): K50.919 - Crohn 's disease, unspecified, with unspecified complications (7) Bacteremia Current visit: Yes Status: Acute Patient reports that during her recent hospitalization at [facility], she had blood cultures come back positive, she had pneumonia and UTI. She was discharged on Levaquin. CXR showed no acute process. UA pending. Blood cultures sent. Will obtain records from [facility]. Will continue Levaquin IVPB daily. (8) DVT prophylaxis Current visit: No Status: Acute sequential compression devices. Patient has been on lovenox for [place] [facility] but she has suspected bleeding and Hgb of 6.2. Will hold anti-coagulation. Internal Medicine - H&P: HPI Chief complaint: abnormal labs Admitted From: Emergency Dept Plans for Post Hospital Care: Home History of present illness: Ms. Baltazar is a 31 year old female with Crohn's disease status post bowel resection, hypothyroid, asthma, previous GI bleeds, kidney stones, endometriosis presents to the emergency department today due to abnormal lab values drawn by her home health nurse yesterday. Patient was instructed to go to the ER yesterday when labs show she had hypokalemia and anemia, and patient waited until today. Patient reports that she has been having nausea, vomiting, abdominal pain, lightheadedness, headaches, dyspnea on exertion, she reports bloody stools on and off, but this is consistent with her Crohn's disease and she did not think anything unusual, she also had bloody noses on and off and vaginal bleeding on and off but nothing current. She reports some chest pain, palpitations, denies any numbness or tingling. She reports she has been on Lovenox injections for the past 2 months for a left upper extremity DVT. Evaluation in the emergency department revealed hemoglobin of 6.2, looks like her baseline is about 9. She is hypokalemic with potassium of 2.5. Her lactate was elevated at 2.9 recheck was 1.6 after some fluids. Patient was tachycardia with heart rate 110s to 130s, she had low-grade fever with temperature of 99.2. Chest x-ray showed no acute cardiopulmonary findings. She was given a 2 L fluid bolus, 40 mEq by mouth potassium as well as 40 mEq IV piggyback potassium, and 2 units of packed red blood cells were ordered by the ER. Patient reports she was recently discharged from [facility] on Tuesday , and reports that she was hospitalized with UTI, and pneumonia. She was getting Levaquin daily at home, as well as TPN which she has been getting for the past 8 months related to her frequent nausea and vomiting and diarrhea. On exam, patient alert and oriented, in no acute distress. Heart has regular, tachycardic rhythm, lungs are clear bilaterally to auscultation. No peripheral edema, peripheral pulses intact. Abdomen is soft with positive bowel sounds diffusely tender. Past Med Surg Social Fam HX - Past Medical History Medical history: arthritis, asthma, GERD, GI bleed, kidney stones, renal disease , seizures, thyroid disease, other Psychiatric history: no psych history - Past Surgical History Surgical History: appendectomy, cholecystectomy, colectomy, other - Social History Smoking Status: Never smoker Smokeless Tobacco Status: No Alcohol use: none Drug use: none - Family History Grandmother Living Status: Hx Family Cardiac Disorders: Yes Hx Family Respiratory Disorders: Yes Hx Family Cancer: No Hx Family GI Disorders: No Hx Family Endocrine Disorder: No Hx Family Neuromuscular Disorders: No Hx Family Neurologic Disorders: No Hx Family HEENT Disorders: No Hx Family Autoimmune Disorders: No Mother Living Status: Still Living All Systems PM: A 10-system review of systems was performed and is negative for pertinent findings except as documented above in the HPI. - Constitutional Constitutional: no chills, no fever(s), no night sweats - EENT Eyes: no change in vision, no discharge, no pain, no photophobia Ears: no ear discharge, no ear pain, no tinnitus Nose, mouth and throat: no dysphagia, no nasal discharge, no neck pain, no sore throat - Cardiovascular Cardiovascular ROS IM: chest pain, dyspnea on exertion, lightheadedness, palpitations, no diaphoresis, no dyspnea, no syncope - Respiratory Respiratory: dyspnea, no cough, no wheezing, no excessive phlegm production - Gastrointestinal Gastrointestinal: abdominal pain, hematochezia, nausea, vomiting, no diarrhea, no hematemesis, no melena - Genitourinary Genitourinary: no change in urinary stream, no dysuria, no flank pain, no hematuria - Musculoskeletal Musculoskeletal ROS IM: no numbness, no tingling - Integumentary Integumentary IM: no rash, no unusual bruising - Neurological Neurological ROS: no confusion, no convulsions, no focal weakness, no numbness, no tingling, no tremor(s) - Hematologic/Lymphatic Hematologic/Lymphatic: easy bleeding, no easy bruising - Constitutional Vitals: Temp Pulse Resp BP Pulse Ox 98.6 F 109 18 127/86 100 05/03/17 17:45 05/03/17 17:45 05/03/17 17:45 05/03/17 17:45 05/03/17 17:45 General appearance: Present: A&O X 3, pleasant, no acute distress - Head Head exam: Present: atraumatic, normocephalic - Eye Eye exam: Present: PERRL, conjuntiva pink, sclera anicteric Pupils: Present: PERRL - Neck Neck exam general surgery: Present: supple, trachea midline. Absent: lymphadenopathy - Respiratory Respiratory exam: Present: CTAB. Absent: accessory muscle use, rales, rhonchi, wheezes - Cardiovascular Cardiovascular exam: Present: +S1, +S2, tachycardia. Absent: diastolic murmur, gallop, rubs, systolic murmur - GI/Abdominal GI/Abdominal exam: Present: normal bowel sounds, soft, tenderness, no peritoneal signs. Absent: distended - Extremities Exam Extremities exam: Present: warm, radial pulses palpable and symetrical. Absent : calf tenderness, cyanotic, pedal edema - Neurological Exam Neurological exam: Present: CN II-XII intact, oriented X3, no focal deficits. Absent: pronater drift, facial droop, speech deficit - Skin Skin exam: Present: dry, intact Internal Med - H&P Results - Labs CBC & Chem 7: 05/03/17 13:08 05/03/17 13:08 Labs: All Lab Results (24 Hours) 05/03/17 05/03/17 05/03/17 Range/Units 13:08 13:08 13:08 WBC 8.9 (4.3-11.1) K/mcL RBC 2.91 L (3.82-4.97) M/mcL Hgb 6.2 L (11.5-15.4) g/dL Hct 20.9 L (35.3-44.9) % MCV 71.8 L (83.0-100.0) fL MCH 21.3 L (28.0-33.3) pg MCHC 29.7 L (31.6-35.5) g/dL RDW 17.6 H (11.5-14.5) % Plt Count 346 (140-400) K/mcL MPV 10.2 (9.4-12.4) fL Immature Gran % 0.6 (0-4) % Seg Neutrophils % 77.0 % Lymphocytes % 11.8 % Monocytes % 9.4 % Eosinophils % 1.1 % Basophils % 0.1 % Neutrophils # 6.8 (1.6-8.9) K/mcL Lymphocytes # 1.1 (0.6-4.6) K/mcL Monocytes # 0.8 (0.0-1.3) K/mcL Eosinophils # 0.1 (0.0-0.6) K/mcL Basophils # 0.0 (0.0-0.2) K/mcL PT 12.0 (9.4-12.1) Seconds INR 1.1 APTT 29.6 (26.0-36.0) Seconds Sodium 140 (136-145) mEq/L Potassium 2.5 L* (3.5-4.5) mEq/L Chloride 102 (98-109) mEq/L Carbon Dioxide 27 (19-29) mEq/L BUN 7 (7-20) mg/dL Creatinine 0.76 (0.57-1.11) mg/dL Est GFR ( Amer) > 60 (> 60) Est GFR (Non-Af Amer) > 60 (> 60) BUN/Creatinine Ratio 9 (6-26) Glucose 121 H (70-99) mg/dL Calculated Osmolality 289 (280-300) Lactic Acid (0.5-2.2) mmol/L Calcium 9.3 (8.6-10.8) mg/dL Magnesium (1.6-2.6) mg/dL Total Bilirubin 0.3 (0.2-1.2) mg/dL AST 11 (5-34) Units/L ALT 17 (0-55) Units/L Alkaline Phosphatase 61 (38-126) Units/L Serum Total Protein 6.5 (6.0-8.3) g/dL Albumin 2.9 L (3.5-5.0) g/dL Globulin 3.6 H (2.4-3.5) g/dL Albumin/Globulin Ratio 0.8 L (1.1-2.2) Lipase 8 (8-78) Units/L Stool Occult Blood (Negative) Blood Type Antibody Screen Crossmatch 05/03/17 05/03/17 05/03/17 Range/Units 13:08 13:08 13:08 WBC (4.3-11.1) K/mcL RBC (3.82-4.97) M/mcL Hgb (11.5-15.4) g/dL Hct (35.3-44.9) % MCV (83.0-100.0) fL MCH (28.0-33.3) pg MCHC (31.6-35.5) g/dL RDW (11.5-14.5) % Plt Count (140-400) K/mcL MPV (9.4-12.4) fL Immature Gran % (0-4) % Seg Neutrophils % % Lymphocytes % % Monocytes % % Eosinophils % % Basophils % % Neutrophils # (1.6-8.9) K/mcL Lymphocytes # (0.6-4.6) K/mcL Monocytes # (0.0-1.3) K/mcL Eosinophils # (0.0-0.6) K/mcL Basophils # (0.0-0.2) K/mcL PT (9.4-12.1) Seconds INR APTT (26.0-36.0) Seconds Sodium (136-145) mEq/L Potassium (3.5-4.5) mEq/L Chloride (98-109) mEq/L Carbon Dioxide (19-29) mEq/L BUN (7-20) mg/dL Creatinine (0.57-1.11) mg/dL Est GFR ( Amer) (> 60) Est GFR (Non-Af Amer) (> 60) BUN/Creatinine Ratio (6-26) Glucose (70-99) mg/dL Calculated Osmolality (280-300) Lactic Acid 2.9 H (0.5-2.2) mmol/L Calcium (8.6-10.8) mg/dL Magnesium 2.1 (1.6-2.6) mg/dL Total Bilirubin (0.2-1.2) mg/dL AST (5-34) Units/L ALT (0-55) Units/L Alkaline Phosphatase (38-126) Units/L Serum Total Protein (6.0-8.3) g/dL Albumin (3.5-5.0) g/dL Globulin (2.4-3.5) g/dL Albumin/Globulin Ratio (1.1-2.2) Lipase (8-78) Units/L Stool Occult Blood (Negative) Blood Type O POSITIVE Antibody Screen NEGATIVE Crossmatch See Detail 05/03/17 05/03/17 Range/Units 13:41 15:32 WBC (4.3-11.1) K/mcL RBC (3.82-4.97) M/mcL Hgb (11.5-15.4) g/dL Hct (35.3-44.9) % MCV (83.0-100.0) fL MCH (28.0-33.3) pg MCHC (31.6-35.5) g/dL RDW (11.5-14.5) % Plt Count (140-400) K/mcL MPV (9.4-12.4) fL Immature Gran % (0-4) % Seg Neutrophils % % Lymphocytes % % Monocytes % % Eosinophils % % Basophils % % Neutrophils # (1.6-8.9) K/mcL Lymphocytes # (0.6-4.6) K/mcL Monocytes # (0.0-1.3) K/mcL Eosinophils # (0.0-0.6) K/mcL Basophils # (0.0-0.2) K/mcL PT (9.4-12.1) Seconds INR APTT (26.0-36.0) Seconds Sodium (136-145) mEq/L Potassium (3.5-4.5) mEq/L Chloride (98-109) mEq/L Carbon Dioxide (19-29) mEq/L BUN (7-20) mg/dL Creatinine (0.57-1.11) mg/dL Est GFR ( Amer) (> 60) Est GFR (Non-Af Amer) (> 60) BUN/Creatinine Ratio (6-26) Glucose (70-99) mg/dL Calculated Osmolality (280-300) Lactic Acid 1.6 (0.5-2.2) mmol/L Calcium (8.6-10.8) mg/dL Magnesium (1.6-2.6) mg/dL Total Bilirubin (0.2-1.2) mg/dL AST (5-34) Units/L ALT (0-55) Units/L Alkaline Phosphatase (38-126) Units/L Serum Total Protein (6.0-8.3) g/dL Albumin (3.5-5.0) g/dL Globulin (2.4-3.5) g/dL Albumin/Globulin Ratio (1.1-2.2) Lipase (8-78) Units/L Stool Occult Blood Negative (Negative) Blood Type Antibody Screen Crossmatch - Diagnostic Studies Chest x-ray Additional comments: Chest X-Ray 05/03/17 12:48 IMPRESSION: No acute cardiopulmonary findings. D/ / Rut Patterson MD / Rut Patterson MD Interpreting Provider: Rut Patterson MD
[2017-05-03] MEDS: *HR* HYDROmorphone (PF) 1 MG/ML SYRINGE IVP SCH (22:20)
[2017-05-03] MEDS: *HR* Promethazine 25 MG/ML VIAL IVP PRN (22:22)
[2017-05-03] MEDS ORDERED: 0.9 % Sodium Chloride 250 ML ONE (22:37)
[2017-05-04] MEDS: *HR* OxyCODONE Immed Rel 5 MG TABLET PO PRN ×4 (01:53→18:57)
[2017-05-04] MEDS: *HR* HYDROmorphone (PF) 1 MG/ML SYRINGE IVP SCH ×4 (03:13→17:00)
[2017-05-04 03:32] LABS: Basophils % 0.1 %; Eosinophils # 0.1 K/mcL (0.0-0.6); Hematocrit 25.8 % (35.3-44.9); Immature Granulocytes % 0.4 % (0-4); Lymphocytes # 1.4 K/mcL (0.6-4.6); Lymphocytes % 20.2 %; Mean Corpuscular HGB Conc 31.4 g/dL (31.6-35.5); Mean Corpuscular Hemoglobin 24.2 pg (28.0-33.3); Mean Platelet Volume 9.5 fL (9.4-12.4); Monocytes # 0.7 K/mcL (0.0-1.3); Monocytes % 10.4 %; Neutrophils # 4.7 K/mcL (1.6-8.9); Platelet Count 251 K/mcL (140-400); Red Blood Count 3.35 M/mcL (3.82-4.97); Red Cell Distribution Width 19.7 % (11.5-14.5); Segmented Neutrophils % 66.9 %
[2017-05-04 03:33] LABS: Hemoglobin 8.1 g/dL (11.5-15.4)
[2017-05-04 03:48] LABS: BUN/Creatinine Ratio 7 (6-26); Calcium 8.6 mg/dL (8.6-10.8); Carbon Dioxide 25 mEq/L (19-29); Chloride 109 mEq/L (98-109); Glucose 88 mg/dL (70-99); Magnesium 1.8 mg/dL (1.6-2.6); Osmolality,Calculated 288 (280-300); Potassium 2.8 mEq/L (3.5-4.5); Sodium 141 mEq/L (136-145); eGFR For African Americans > 60 (> 60); eGFR For Non-African Americans > 60 (> 60)
[2017-05-04 03:49] LABS: Blood Urea Nitrogen 4 mg/dL (7-20)
[2017-05-04] MEDS: Pantoprazole 40 MG VIAL IVP SCH ×2 (06:04→17:37)
[2017-05-04] MEDS: *HR* Promethazine 25 MG/ML VIAL IVP PRN ×3 (08:20→23:04)
[2017-05-04] MEDS: Levofloxacin 750 MG/150 ML 750 MG/150 ML BAG IVPB SCH (08:35)
[2017-05-04] MEDS ORDERED: D10% in Water 500 ML IVC PRN (11:22)
[2017-05-04 12:40] LABS: Hematocrit 30.6 % (35.3-44.9); Hemoglobin 9.3 g/dL (11.5-15.4)
[2017-05-04] MEDS ORDERED: *HR* Alteplase (Cathflo) 2 MG VIAL IVP ONE (13:19)
--- NOTE | 2017-05-04 14:32 | Internal Med Progress Note ---
Date of Encounter: 05/04/17 Time of Encounter: 14:20 - Assessment and plan (1) Crohns disease Current Visit: No Status: Chronic Qualifiers: Gastrointestinal tract location: small and large intestine Digestive disease complication type: without complication Qualified Code(s): K50.80 - Crohn's disease of both small and large intestine without complications (2) Hypokalemia Current Visit: No Status: Acute (3) Dehydration Current Visit: No Status: Acute (4) Hypothyroidism Current Visit: No Status: Acute Qualifiers: Qualified Code(s): E03.9 - Hypothyroidism, unspecified (5) Opiate dependence, continuous Current Visit: No Status: Acute - Constitutional Vitals: Temp Pulse Resp BP Pulse Ox 98.3 F 97 17 129/85 99 05/04/17 11:08 05/04/17 11:08 05/04/17 11:08 05/04/17 11:08 05/04/17 11:08 General appearance: Present: A&O X 3, pleasant, no acute distress Internal Medicine: Result - Labs CBC & Chem 7: 05/04/17 12:19 05/04/17 02:50 Labs: Short CBC 05/04/17 05/04/17 Range/Units 02:50 12:19 WBC 7.0 (4.3-11.1) K/mcL Hgb 8.1 L D 9.3 L (11.5-15.4) g/dL Hct 25.8 L 30.6 L (35.3-44.9) % Plt Count 251 (140-400) K/mcL Neutrophils # 4.7 (1.6-8.9) K/mcL BMP 05/04/17 02:50 Sodium 141 Potassium 2.8 L Chloride 109 Carbon Dioxide 25 BUN 4 L Creatinine 0.61 Glucose 88 Calcium 8.6 - ABG Interpretation ABG results: PT/INR, D-dimer PT 12.0 Seconds (9.4-12.1) 05/03/17 13:08 - Impressions Impressions Pulmonary Perfusion Imaging 05/03/17 20:44 IMPRESSION: Low Probability for Pulmonary Embolus. D/ / Daniel Mccormack MD / Daniel Mccormack MD Interpreting Provider: Daniel Mccormack MD - VTE Documentation of Mechanical Device: Intermittent pneumatic compression device Consult Discharge Plan - Plan Referrals: Jose David Hebert DO [Primary Care Provider] -
[2017-05-04 14:53] LABS: Alanine Aminotransferase 15 Units/L (0-55); Albumin 2.6 g/dL (3.5-5.0); Albumin/Globulin Ratio 0.8 (1.1-2.2); Alkaline Phosphatase 64 Units/L (38-126); Aspartate Amino Transferase 14 Units/L (5-34); BUN/Creatinine Ratio 8 (6-26); Bilirubin,Total 0.5 mg/dL (0.2-1.2); Calcium 8.7 mg/dL (8.6-10.8); Carbon Dioxide 25 mEq/L (19-29); Chloride 110 mEq/L (98-109); Globulin 3.4 g/dL (2.4-3.5); Glucose 78 mg/dL (70-99); Osmolality,Calculated 290 (280-300); Sodium 142 mEq/L (136-145); eGFR For African Americans > 60 (> 60); eGFR For Non-African Americans > 60 (> 60)
[2017-05-04 14:55] LABS: Blood Urea Nitrogen 5 mg/dL (7-20)
--- NOTE | 2017-05-04 16:38 | Gastroenterology Consult Note ---
Date of Encounter: 05/04/17 Time of Encounter: 11:55 - Assessment and plan (1) Crohns disease Current Visit: No Status: Chronic Assessment and plan: Pt receiving Entyvio, no need to be on Lialda as well, will DC Lialda. No indication for EGD or colonoscopy at this time. Plan for capsule endoscopy as outpatient. Pt is not eating recommend Nutrition consult. Qualifiers: Gastrointestinal tract location: small and large intestine Digestive disease complication type: without complication Qualified Code(s): K50.80 - Crohn's disease of both small and large intestine without complications (2) Hypokalemia Current Visit: No Status: Acute (3) Anemia Current Visit: No Status: Chronic Assessment and plan: Hgb 6.2 on admission and this AM up to 8.1. Continue to monitor CBC and transfuse PRBC as needed. Plan for capsule endoscopy as outpatient. Give IV iron. Qualifiers: Anemia type: iron deficiency Iron deficiency anemia type: chronic blood loss Qualified Code(s): D50.0 - Iron deficiency anemia secondary to blood loss (chronic) - Time Spent With Patient Total time spent is greater than 50% in coordination of care (as documented) at patient's floor/unit and/or counseling patient: GI History of Present Illness - Data of Consult Patient: known to practice within the last 3 years Consult date: 05/04/17 Requesting Physician: Altaf Lock MD - Consult Narrative Reason for consult: Crohn's disease, anemia History of present illness: Ms. Baltazar is a 31 year old female with PMHx of Crohns, malnutrition, abdominal pain, N/V. She has been seen many times INPT and OTPT consultation by GI for Crohns disease. As of last colonoscopy in October 2016, no visible disease was present. Currently, the patient is to receive Entyvio infusions and is on Lialda po for her disease. She presented to the ED due to anemia and hypokalemia. She was instructed by her home health to present to the ED for Hgb of 6.3 and K 2.6 on 05/02, but the patient waited until 05/03 to come to be evaluated. She reports abdominal pain, nausea, vomiting lightheadedness, headaches, dyspnea on exertion and intermittent bloody stools, but states it is consistent with her Crohn's. he reports she has been on Lovenox injections for the past 2 months for a left upper extremity DVT. Procedures: Colonoscopy 10/29/2016 Dr. Mackey: Normal examined colon and ileum. EGD 08/12/2016 Dr. Mackey: Non-bleeding esophageal ulcers, gastritis, normal duodenum. NSAIDs: None Anticoagulation: Lovenox Past Med Surg Social Fam HX - Past Medical History Medical history: arthritis, asthma, GERD, GI bleed, kidney stones, renal disease , seizures, thyroid disease, other Psychiatric history: no psych history - Past Surgical History Surgical History: appendectomy, cholecystectomy, colectomy, other - Social History Smoking Status: Never smoker Smokeless Tobacco Status: No Alcohol use: none Drug use: none - Family History Mother Living Status: Still Living Grandmother Living Status: Hx Family Cardiac Disorders: Yes Hx Family Respiratory Disorders: Yes Hx Family Cancer: No Hx Family GI Disorders: No Hx Family Endocrine Disorder: No Hx Family Neuromuscular Disorders: No Hx Family Neurologic Disorders: No Hx Family HEENT Disorders: No Hx Family Autoimmune Disorders: No - Gastrointestinal Gastrointestinal: Present: as per HPI - Constitutional Constitutional: as per HPI - EENT Eyes: as per HPI Ears: Present: as per HPI Nose, mouth and throat: Present: as per HPI - Cardiovascular Cardiovascular ROS: Present: as per HPI - Respiratory Respiratory IM: Present: as per HPI - Genitourinary Genitourinary: Absent: change in color, Urinary frequency - Neurological ROS Neurological GI: Present: as per HPI - Hematologic/Lymphatic Hematologic/Lymphatic pediatric: Present: as per HPI - Musculoskeletal Musculoskeletal ROS GI: Present: as per HPI - Integumentary Integumentary GI: Present: as per HPI - Psychiatric ROS Psychiatric GI: Present: as per HPI - Endocrine Endocrine IM: Present: as per HPI - Constitutional Vitals: Temp Pulse Resp BP Pulse Ox 97.8 F 72 16 102/56 95 05/04/17 15:40 05/04/17 15:40 05/04/17 15:40 05/04/17 15:40 05/04/17 15:40 General appearance: Present: cooperative, A&O X 3, no acute distress, answers questions appropriately - Head Head exam: Present: atraumatic, normocephalic - Eye Eye exam: Present: normal appearance, sclera anicteric - ENT ENT exam: Present: mucous membranes dry - Neck Neck exam general surgery: Present: normal inspection, trachea midline - Respiratory Respiratory exam: Present: CTAB. Absent: rales, rhonchi - Cardiovascular Cardiovascular exam: Present: RRR, +S1, +S2 - GI/Abdominal GI/Abdominal exam: Present: soft, tenderness (to light palpation), no peritoneal signs. Absent: distended, firm, guarding - Rectal Rectal exam: Present: deferred - Extremities Exam Extremities exam: Present: warm - Neurological Exam Neurological exam: Present: no focal deficits - Psychiatric Psychiatric exam: Present: normal affect, normal mood - Skin Skin exam: Present: dry, intact, normal color, warm Results - Labs CBC & Chem 7: 05/04/17 12:19 05/04/17 14:24 Labs: Last Result Calcium 8.7 mg/dL (8.6-10.8) 05/04/17 14:24 Stool Occult Blood Negative (Negative) 05/03/17 13:41 Entire Visit Hgb 9.3 g/dL (11.5-15.4) L 05/04/17 12:19 Hct 30.6 % (35.3-44.9) L 05/04/17 12:19 PT 12.0 Seconds (9.4-12.1) 05/03/17 13:08 Total Bilirubin 0.5 mg/dL (0.2-1.2) 05/04/17 14:24 AST 14 Units/L (5-34) 05/04/17 14:24 ALT 15 Units/L (0-55) 05/04/17 14:24 Lipase 8 Units/L (8-78) 05/03/17 13:08 - ABG ABG results: PT/INR, D-dimer PT 12.0 Seconds (9.4-12.1) 05/03/17 13:08 - Impressions Impressions Pulmonary Perfusion Imaging 05/03/17 20:44 IMPRESSION: Low Probability for Pulmonary Embolus. D/ / Daniel Mccormack MD / Daniel Mccormack MD Interpreting Provider: Daniel Mccormack MD Consult Discharge Plan - Plan Referrals: Jose David Hebert DO [Primary Care Provider] -
[2017-05-04] MEDS ORDERED: Clinimix E 5%-15% SOLUTION 2,000 ML with MVI, adult with vitamin K 10 ML IVC SCH (17:00)
[2017-05-04] MEDS ORDERED: Clinimix E 5%-15% SOLUTION 2,000 ML, Amino Acids 10% 0 ML with MVI, adult with vitami... IVC SCH (17:00)
--- NOTE | 2017-05-04 17:21 | Electrocardiograph Report ---
[facility] Test Date: 2017-05-03 Pat Name: Dayami Baltazar Department: 103 Room: 3A48 Gender: F [employer]: [facility] : 1985 Requested By: Aly Ba Order Number: [id number] Reading MD: John Carias MD Measurements Intervals [place] Rate: 124 P: 67 VT: 138 QRS: 14 QRSD: 90 T: 33 QT: 333 QTc: 407 Interpretive Statements SINUS TACHYCARDIA NONSPECIFIC T-WAVE ABNORMALITY ABNORMAL RHYTHM ECG Electronically Signed On 05-04-2017 17:19:48 EDT by John Carias MD
--- NOTE | 2017-05-04 17:39 | Internal Med Progress Note ---
<Jose David Hebert - Last Filed: 05/04/17 17:53> Date of Encounter: 05/04/17 Time of Encounter: 17:24 - Assessment and plan (1) Crohns disease Current Visit: No Status: Chronic Assessment and plan: Patient has history of Crohn's disease for which she has been receiving Entyvio and Lialda. She has been receiving treatment with edema gastroenterology. - Patient denies any change to her stool frequency. - Gastroenterology has seen and evaluated the patient at this time do not plan on EGD or colonoscopy. A plan for a capsule endoscopy in the outpatient setting for workup of Crohn's and anemia. Qualifiers: Gastrointestinal tract location: small and large intestine Digestive disease complication type: without complication Qualified Code(s): K50.80 - Crohn's disease of both small and large intestine without complications (2) Microcytic anemia Current Visit: Yes Status: Acute Assessment and plan: Mrs. Baltazar has a history of chronic iron deficiency anemia with a history of Crohn's disease and poor oral intake. She has been receiving TPN through her port access long-term. She was admitted with a hemoglobin around 6 and required 2 units PRBC transfusion. Plan: - Transfuse PRBCs if hemoglobin drops below 7 - Gastroenterology plans for outpatient follow-up. - Moderate hemoglobin with a.m. labs - Patient will be given IV iron replacement. (3) Hypokalemia Current Visit: No Status: Acute Assessment and plan: Patient was admitted with a potassium of 2.8. Review of her lab results demonstrate that she has had a chronically low normal potassium but at her last outpatient hospital stay 1 week ago she had hypokalemia and was provided potassium. After discharge from that hospital stay she did take oral Lasix which may be contributing to her hypokalemia. - Received 40meq IV potassium yesterday and current potassium is 3.0 Plan: - Replace IV potassium 40meq over 4 hours. - No further lasix at this time. - Recheck a watch her electrolytes in the morning (4) Hypothyroidism Current Visit: No Status: Acute Assessment and plan: Patient is a history of hypothyroidism and on levothyroxin 75mcg at home Plan: -Continue homedose levothyroxin Qualifiers: Hypothyroidism type: acquired Qualified Code(s): E03.9 - Hypothyroidism, unspecified (5) Opiate dependence, continuous Current Visit: No Status: Acute Assessment and plan: Patient is a history of difficulty with opiate medications. She has been in a weaning process in the outpatient setting. Her current IV Dilaudid will be held at this time and she will be continued on her outpatient medications and follow up with her primary care provider for further treatment. (6) Recurrent bacteremia Current Visit: Yes Status: Acute Assessment and plan: Mrs. Baltazar has had multiple episodes of bacteremia with gram-positive cocci and gram-negative bacilli over the last several months. She has had multiple extractions of her port. Given the frequency and variation of gram-negative and gram-positive bacteremic events there is concern that there is manipulation or contamination. She has only had these bacteremic events since having her port in place and has had multiple episodes of bacteremia soon after replacement of her port. Given the frequency and severity of her bacteremia events having a port may be more harmful than helpful in her medical treatment. - I discussed my concerns of continued Entyvio therapy with Dr. Mackey with [facility] and that she may need other subcutaneous therapy options. - Given that she has had multiple harmful infections with her port, she may need her port removed. - There is concern for secondary gain from the hospital experience and she may be manipulating her port for which I have consult with psychiatry to come and evaluated Mrs. Baltazar. (7) DVT (deep venous thrombosis) Current Visit: Yes Status: Acute Assessment and plan: Ms. Baltazar was recently diagnosed with a left upper extremity DVT after manipulation and extraction of a port in her left upper chest. She was admitted with a hemoglobin of 6 and her subcutaneous Lovenox was held. - Patient minutes to seeing blood in her stool occasional blood in her urine Plan: - Continue cardiac monitoring - Continue to hold anticoagulation in the setting of acute anemia Qualifiers: Qualified Code(s): I82.622 - Acute embolism and thrombosis of deep veins of left upper extremity - Subjective Interval history: Ms. Baltazar 31-year-old female who is a clinic patient of [employer] is in see and evaluate in the inpatient setting. She was admitted with hemoglobin of 6, potassium around 2.6. She explains that she has been dealing with recurrent illness for several months now pulse coming back since August when she started treatments. She has had multiple episodes of bacteremia with multiple angela including gram-negative rods and gram-positive cocci. She explains that her current right upper chest port was replaced roughly 1.5 weeks ago after the last 4 had a kink in it and was extracted. She said today she continues to have her chronic nausea vomiting and abdominal discomfort without much variation from her baseline. She said she has not been able tolerate her oral medications due to her nausea and vomiting but has had improvement today and is tolerating ice chips at this time. She said that she was discharged from an outside hospital on Tuesday and at that time she had 30 pounds of fluid weight at the time of discharge which concerned her. She said she took oral Lasix at home that she had from a previous time she is prescribed 20 mg 2 times a day. She felt that her fluid weight had decreased significantly but still has trace fluid. With regards to her hemoglobin 6 she said that she has been using her subcutaneous heparin 50 twice a day and has noticed occasional blood in her urine, stool and had an episode of abnormal vaginal bleeding which is nonpainful and has not had similar events since. She denies any trauma. She said during her last hospitalization last week she was provided potassium for a low potassium level but was not taking oral Lasix at that time. She also said that major multiple cultures that were positive for different bacteria. She was discharged on IV Levaquin for a respiratory infection. She denies profusely about injecting anything into her for other than her TPN. She denies manipulating her port. She did admit to a subjective fever 101 at home and occasional chills but denies any photophobia, neck pain, neck tightness or back pain. She denies any fevers or chills since being in the hospital. Thank you Dr. Lock for involving me in Ms. Baltazar's care. - Constitutional Vitals: Temp Pulse Resp BP Pulse Ox 99.1 F 96 16 129/84 99 05/04/17 16:23 05/04/17 16:23 05/04/17 16:23 05/04/17 16:23 05/04/17 16:23 General appearance: Present: A&O X 3, pleasant, no acute distress Exam: General: Patient alert, awake, oriented 3, interactive, in no acute distress HEENT: Normocephalic, atraumatic, pupils equal reactive to light, nasal cavity patent and open septum median position, oral mucosa moist, appropriate dentition no signs of oral staining or wearing of the enamel typically seen with chronic vomiting. uvula midline, neck supple trachea midline no palpable lymphadenopathy, no thyromegaly. Chest: Symmetric bilateral correlating with respiratory effort, effort nonlabored. Port in right upper chest without any signs of erythema or edema. Cardiac: Regular rate and rhythm, positive S1 and S2. no bruits appreciated bilateral carotids, Radial pulses 2+ bilateral, posterior tibial and dorsal pedal pulses 2+ bilateral. Respiratory: Clear to auscultation all lung winter Abdomen: Soft, nontender, positive bowel sounds, no palpable masses appreciated on examination Extremities: Symmetric bilateral, bilateral lower extremities without erythema or edema patient moving all 4 extremities spontaneously. Neurologic: No focal deficits appreciated on examination. Face symmetric, muscle strength symmetric bilateral upper and lower extremities. Internal Medicine: Result - Labs CBC & Chem 7: 05/04/17 12:19 05/04/17 14:24 Labs: Short CBC 05/04/17 05/04/17 Range/Units 02:50 12:19 WBC 7.0 (4.3-11.1) K/mcL Hgb 8.1 L D 9.3 L (11.5-15.4) g/dL Hct 25.8 L 30.6 L (35.3-44.9) % Plt Count 251 (140-400) K/mcL Neutrophils # 4.7 (1.6-8.9) K/mcL BMP 05/04/17 05/04/17 02:50 14:24 Sodium 141 142 Potassium 2.8 L 3.0 L Chloride 109 110 H Carbon Dioxide 25 25 BUN 4 L 5 L Creatinine 0.61 0.64 Glucose 88 78 Calcium 8.6 8.7 Liver Function 05/04/17 Range/Units 14:24 Total Bilirubin 0.5 (0.2-1.2) mg/dL AST 14 (5-34) Units/L ALT 15 (0-55) Units/L Alkaline Phosphatase 64 (38-126) Units/L Albumin 2.6 L (3.5-5.0) g/dL - ABG Interpretation ABG results: PT/INR, D-dimer PT 12.0 Seconds (9.4-12.1) 05/03/17 13:08 - Impressions Impressions Pulmonary Perfusion Imaging 05/03/17 20:44 IMPRESSION: Low Probability for Pulmonary Embolus. D/ / Daniel Mccormack MD / Daniel Mccormack MD Interpreting Provider: Daniel Mccormack MD - VTE Documentation of Mechanical Device: Intermittent pneumatic compression device Consult Discharge Plan - Plan Referrals: Jose David Hebert DO [Primary Care Provider] - <Altaf Lock - Last Filed: 05/04/17 18:41> Date of Encounter: 05/04/17 - Constitutional Vitals: Temp Pulse Resp BP Pulse Ox 99.1 F 96 16 129/84 99 05/04/17 16:23 05/04/17 16:23 05/04/17 16:23 05/04/17 16:23 05/04/17 16:23 Internal Medicine: Result - Labs CBC & Chem 7: 05/04/17 12:19 05/04/17 14:24 Labs: Short CBC 05/04/17 05/04/17 Range/Units 02:50 12:19 WBC 7.0 (4.3-11.1) K/mcL Hgb 8.1 L D 9.3 L (11.5-15.4) g/dL Hct 25.8 L 30.6 L (35.3-44.9) % Plt Count 251 (140-400) K/mcL Neutrophils # 4.7 (1.6-8.9) K/mcL BMP 05/04/17 05/04/17 02:50 14:24 Sodium 141 142 Potassium 2.8 L 3.0 L Chloride 109 110 H Carbon Dioxide 25 25 BUN 4 L 5 L Creatinine 0.61 0.64 Glucose 88 78 Calcium 8.6 8.7 Liver Function 05/04/17 Range/Units 14:24 Total Bilirubin 0.5 (0.2-1.2) mg/dL AST 14 (5-34) Units/L ALT 15 (0-55) Units/L Alkaline Phosphatase 64 (38-126) Units/L Albumin 2.6 L (3.5-5.0) g/dL - ABG Interpretation ABG results: PT/INR, D-dimer PT 12.0 Seconds (9.4-12.1) 05/03/17 13:08 - Impressions Impressions Pulmonary Perfusion Imaging 05/03/17 20:44 IMPRESSION: Low Probability for Pulmonary Embolus. D/ / Daniel Mccormack MD / Daniel Mccormack MD Interpreting Provider: Daniel Mccormack MD - Attending Attestation I examined this patient and my medical decision-making was reviewed with the Resident Physician, Dr Hebert. I agree with the documented findings, disposition and treatment plan as described except to the extent set forth below. She is in no acute distress awake alert oriented. She tells me that she was recently admitted for 10 days and treated for bacteremia. She received abundant amounts of IV fluids and reportedly gained 30 pounds during the admission. She took Lasix at home and her weight came down to baseline. She also reports chronic diarrhea. We will replete potassium. Monitor hemoglobin and hematocrit. If stable she can follow-up with GI outpatient. The most significant concern is to recurrence of her episodes of bacteremia and need for port replacement and multiple recurrent surgical interventions. We will consult psychiatry for further evaluation and care.
[2017-05-04] MEDS ORDERED: Iron Sucrose Complex 400 MG in 0.9 % Sodium Chloride 250 ML IVPB ONE (18:08)
[2017-05-04 19:54] LABS: Hematocrit 27.5 % (35.3-44.9); Hemoglobin 8.6 g/dL (11.5-15.4)
[2017-05-04 23:19] LABS: Hematocrit 26.8 % (35.3-44.9); Hemoglobin 8.4 g/dL (11.5-15.4)
[2017-05-05] MEDS: *HR* OxyCODONE Immed Rel 5 MG TABLET PO PRN ×5 (00:57→21:25)
[2017-05-05 03:57] LABS: Basophils % 0.1 %; Eosinophils # 0.1 K/mcL (0.0-0.6); Eosinophils % 0.6 %; Hematocrit 26.9 % (35.3-44.9); Hemoglobin 8.6 g/dL (11.5-15.4); Immature Granulocytes % 1.2 % (0-4); Lymphocytes # 0.5 K/mcL (0.6-4.6); Lymphocytes % 4.6 %; Mean Corpuscular Hemoglobin 24.2 pg (28.0-33.3); Mean Corpuscular Volume 75.6 fL (83.0-100.0); Mean Platelet Volume 9.6 fL (9.4-12.4); Monocytes # 0.8 K/mcL (0.0-1.3); Monocytes % 7.8 %; Neutrophils # 9.3 K/mcL (1.6-8.9); Platelet Count 273 K/mcL (140-400); Red Blood Count 3.56 M/mcL (3.82-4.97); Red Cell Distribution Width 19.6 % (11.5-14.5); Segmented Neutrophils % 85.7 %
[2017-05-05 04:17] LABS: Alanine Aminotransferase 14 Units/L (0-55); Albumin 2.6 g/dL (3.5-5.0); Albumin/Globulin Ratio 0.7 (1.1-2.2); Alkaline Phosphatase 64 Units/L (38-126); Aspartate Amino Transferase 13 Units/L (5-34); BUN/Creatinine Ratio 14 (6-26); Bilirubin,Total 0.4 mg/dL (0.2-1.2); Blood Urea Nitrogen 10 mg/dL (7-20); Calcium 9.1 mg/dL (8.6-10.8); Carbon Dioxide 24 mEq/L (19-29); Chloride 107 mEq/L (98-109); Globulin 3.6 g/dL (2.4-3.5); Glucose 133 mg/dL (70-99); Magnesium 1.7 mg/dL (1.6-2.6); Osmolality,Calculated 291 (280-300); Phosphorous 2.2 mg/dL (2.3-4.7); Potassium 2.7 mEq/L (3.5-4.5); Sodium 140 mEq/L (136-145); Total Protein 6.2 g/dL (6.0-8.3); Triglycerides 109 mg/dL (< 150); eGFR For African Americans > 60 (> 60); eGFR For Non-African Americans > 60 (> 60)
[2017-05-05] MEDS: Pantoprazole 40 MG VIAL IVP SCH ×2 (05:35→17:34)
[2017-05-05] MEDS: Levofloxacin 750 MG/150 ML 750 MG/150 ML BAG IVPB SCH (09:57)
[2017-05-05] MEDS: *HR* Promethazine 25 MG/ML VIAL IVP PRN ×2 (10:10→17:29)
[2017-05-05] MEDS ORDERED: Potassium Phosphate 44 MEQ in 0.9 % Sodium Chloride 250 ML IVPB ONE (15:30)
[2017-05-05] MEDS ORDERED: Magnesium Sulfate 2 GM in D5% in Water 100 ML IVPB ONE (15:30)
--- NOTE | 2017-05-05 16:14 | Consult Note ---
Date of Encounter: 05/05/17 Time of Encounter: 15:50 Assessment & Recommendation (1) Crohns disease Current visit: No Status: Chronic Assessment & Recommendation: Case and recommendations were discussed in detail with Dr. Solitario There is no evidence from the history and clinical findings to support factitious disorder to explain frequent episodes of bacteremia. Patient has no evidence of any psychiatric comorbidities like anxiety ,depression to support the diagnosis. Secondary gain in the form off obtaining narcotics or time off from work can be controlled by the treatment team to rule out the possibility. Thank you for consultation. Qualifiers: Gastrointestinal tract location: small and large intestine Digestive disease complication type: without complication Qualified Code(s): K50.80 - Crohn's disease of both small and large intestine without complications History of Present Illness Patient: new to practice Requesting Physician: Altaf Lock MD Reason for consult: Rule out factitious disorder History of present illness: Ms. Baltazar is a 31 year old female admitted to the hospital for evaluation and treatment of Crohn's disease with complications including anemia, hypokalemia and bacteremia. Psychiatric consultation was requested to evaluate possibility of factitious disorder, suggestion that patient is self- inflicting illness causing bacteremia several episodes in the last couple months. Review of the records and interviewing the patient execludes any psychiatric comorbidities like depression, and anxiety or psychosis. Patient had no history of treatment for any psychiatric or emotional problems. On interview with the patient was pleasant and cooperative young woman, she explained to me that home health staff are taking care of of her port on a weekly basis. She denies having any symptoms of depression or anxiety, no history of suicidal thoughts or attempts or treatments with psychotropic medication. CC: Altaf Lock MD Past Med Surg Social Fam HX - Past Medical History Medical history: arthritis, asthma, GERD, GI bleed, kidney stones, renal disease , seizures, thyroid disease, other - Past Surgical History Surgical History: appendectomy, cholecystectomy, colectomy, other - Social History Smoking Status: Never smoker Smokeless Tobacco Status: No Alcohol use: none Drug use: none - Family History Mother Living Status: Still Living Grandmother Living Status: Hx Family Cardiac Disorders: Yes Hx Family Respiratory Disorders: Yes Hx Family Cancer: No Hx Family GI Disorders: No Hx Family Endocrine Disorder: No Hx Family Neuromuscular Disorders: No Hx Family Neurologic Disorders: No Hx Family HEENT Disorders: No Hx Family Autoimmune Disorders: No Medications & Allergies Levothyroxine [Synthroid] 75 mcg PO DAILY 08/04/15 [History] Mesalamine [Lialda] 2.4 gm PO DAILY 09/30/15 [History] Ondansetron ODT [Zofran ODT] 4 mg SL Q6HR PRN 08/11/16 [History] Albuterol Sulfate [Albuterol Inhaler] 2 puff IH Q6H PRN 09/28/16 [History] Promethazine HCl [Phenergan] 25 mg IV Q6HR PRN 12/05/16 [History] Vedolizumab [Entyvio (For Outpatient Infusion)] 300 mg IV Q8W 12/05/16 [History] DiphenhydraMINE [Benadryl] 50 mg IV Q4HR PRN 02/28/17 [History] OxyCODONE Immed Rel [Roxicodone 5 MG] 10 mg PO Q4H PRN 7 Days 03/04/17 [Rx] Budesonide [Entocort EC] 9 mg PO DAILY 05/03/17 [History] Enoxaparin [Lovenox] 50 mg SQ Q12HR 05/03/17 [History] Levaquin mg IV DAILY 05/03/17 [History] Allergies Iodinated Contrast- Oral and IV Dye [Iodinated Contrast Media - IV Dye] Allergy (Verified 04/05/17 13:00) Difficulty Breathing ketorolac [From Toradol] Allergy (Verified 04/05/17 13:00) Difficulty Breathing metoprolol [From Lopressor] Allergy (Verified 04/05/17 13:00) Difficulty Breathing morphine Allergy (Verified 04/05/17 13:00) Difficulty Breathing vancomycin Allergy (Verified 04/05/17 13:00) Rash Melyssa rash at beginning of infusion. adalimumab [From Humira] Adverse Reaction (Verified 04/05/17 13:00) Seizure Mental Status Exam Patient orientation: Yes Person, Yes Time, Yes Place Level of alertness: Alert Patient appearance: Appropriate, Well Groomed Behavior: calm, cooperative Psychomotor activity: Normal Eye contact: Maintains Eye Contact Mood description: Euthymic/stable Affect description: congruent with mood, full range Speech pattern: Normal rate, Normal rhythm, Normal tone Speech volume: Normal Thought process: Linear, Goal Oriented Thought content: No Suicidal ideation, No Homicidal ideation, No Overt delusions Perceptual disturbances: No Auditory hallucinations, No Visual hallucinations Attention span: Capable of Focused Attention Memory description: Grossly Intact Patient reliability: Reliable Historian Intelligence estimate: Average Judgment: Limited Insight: Partial Results - Vital Signs Vital signs: Temp Pulse Resp BP Pulse Ox 98.6 F 103 16 119/72 96 05/05/17 14:00 05/05/17 14:00 05/05/17 14:00 05/05/17 14:00 05/05/17 14:00 - Labs Labs: Laboratory Last Values WBC 10.8 K/mcL (4.3-11.1) D 05/05/17 03:35 RBC 3.56 M/mcL (3.82-4.97) L 05/05/17 03:35 Hgb 8.6 g/dL (11.5-15.4) L 05/05/17 03:35 Hct 26.9 % (35.3-44.9) L 05/05/17 03:35 MCV 75.6 fL (83.0-100.0) L 05/05/17 03:35 MCH 24.2 pg (28.0-33.3) L 05/05/17 03:35 MCHC 32.0 g/dL (31.6-35.5) 05/05/17 03:35 RDW 19.6 % (11.5-14.5) H 05/05/17 03:35 Plt Count 273 K/mcL (140-400) 05/05/17 03:35 MPV 9.6 fL (9.4-12.4) 05/05/17 03:35 Immature Gran % 1.2 % (0-4) 05/05/17 03:35 Seg Neutrophils % 85.7 % 05/05/17 03:35 Lymphocytes % 4.6 % 05/05/17 03:35 Monocytes % 7.8 % 05/05/17 03:35 Eosinophils % 0.6 % 05/05/17 03:35 Basophils % 0.1 % 05/05/17 03:35 Neutrophils # 9.3 K/mcL (1.6-8.9) H 05/05/17 03:35 Lymphocytes # 0.5 K/mcL (0.6-4.6) L 05/05/17 03:35 Monocytes # 0.8 K/mcL (0.0-1.3) 05/05/17 03:35 Eosinophils # 0.1 K/mcL (0.0-0.6) 05/05/17 03:35 Basophils # 0.0 K/mcL (0.0-0.2) 05/05/17 03:35 PT 12.0 Seconds (9.4-12.1) 05/03/17 13:08 INR 1.1 05/03/17 13:08 APTT 29.6 Seconds (26.0-36.0) 05/03/17 13:08 Sodium 140 mEq/L (136-145) 05/05/17 03:35 Potassium 2.7 mEq/L (3.5-4.5) L 05/05/17 03:35 Chloride 107 mEq/L (98-109) 05/05/17 03:35 Carbon Dioxide 24 mEq/L (19-29) 05/05/17 03:35 BUN 10 mg/dL (7-20) 05/05/17 03:35 Creatinine 0.69 mg/dL (0.57-1.11) 05/05/17 03:35 Est GFR ( Amer) > 60 (> 60) 05/05/17 03:35 Est GFR (Non-Af Amer) > 60 (> 60) 05/05/17 03:35 BUN/Creatinine Ratio 14 (6-26) 05/05/17 03:35 Glucose 133 mg/dL (70-99) H 05/05/17 03:35 POC Glucose 94 (58-89) H 05/05/17 10:59 Calculated Osmolality 291 (280-300) 05/05/17 03:35 Lactic Acid 1.6 mmol/L (0.5-2.2) 05/03/17 15:32 Calcium 9.1 mg/dL (8.6-10.8) 05/05/17 03:35 Phosphorus 2.2 mg/dL (2.3-4.7) L 05/05/17 03:35 Magnesium 1.7 mg/dL (1.6-2.6) 05/05/17 03:35 Total Bilirubin 0.4 mg/dL (0.2-1.2) 05/05/17 03:35 AST 13 Units/L (5-34) 05/05/17 03:35 ALT 14 Units/L (0-55) 05/05/17 03:35 Alkaline Phosphatase 64 Units/L (38-126) 05/05/17 03:35 Serum Total Protein 6.2 g/dL (6.0-8.3) 05/05/17 03:35 Albumin 2.6 g/dL (3.5-5.0) L 05/05/17 03:35 Globulin 3.6 g/dL (2.4-3.5) H 05/05/17 03:35 Albumin/Globulin Ratio 0.7 (1.1-2.2) L 05/05/17 03:35 Triglycerides 109 mg/dL (< 150) 05/05/17 03:35 Lipase 8 Units/L (8-78) 05/03/17 13:08 Stool Occult Blood Negative (Negative) 05/03/17 13:41 Blood Type O POSITIVE 05/03/17 13:08 Antibody Screen NEGATIVE 05/03/17 13:08 Crossmatch See Detail 05/03/17 13:08 Consult Discharge Plan - Plan Referrals: Theresa Hebert DO [Resident] - 05/12/17 10:00 am
[2017-05-05] MEDS ORDERED: Clinimix E 5%-15% SOLUTION 2,000 ML with MVI, adult with vitamin K 10 ML IVC SCH (17:00)
--- NOTE | 2017-05-05 17:20 | Internal Med Progress Note ---
Date of Encounter: 05/05/17 Time of Encounter: 16:00 - Assessment and plan (1) Crohns disease Current Visit: No Status: Chronic Assessment and plan: Patient has history of Crohn's disease for which she has been receiving Entyvio and Lialda. She has been receiving treatment with [facility]. - Patient denies any change to her stool frequency. - Gastroenterology has seen and evaluated the patient at this time do not plan on EGD or colonoscopy. A plan for a capsule endoscopy in the outpatient setting for workup of Crohn's and anemia. She does not require steroids at the present time, continue outpatient management as above. Qualifiers: Gastrointestinal tract location: small and large intestine Digestive disease complication type: without complication Qualified Code(s): K50.80 - Crohn's disease of both small and large intestine without complications (2) Hypokalemia Current Visit: No Status: Acute Assessment and plan: Patient was admitted with a potassium of 2.8. Review of her lab results demonstrate that she has had a chronically low normal potassium but at her last outpatient hospital stay 1 week ago she had hypokalemia and was provided potassium. After discharge from that hospital stay she did take oral Lasix which may be contributing to her hypokalemia. - Received 40meq IV potassium yesterday and current potassium is 3.0 Plan: - Replete IV potassium, replete magnesium and phosphorus and recheck labs this afternoon.. - No further lasix at this time. - Recheck a watch her electrolytes in the morning (3) Dehydration Current Visit: No Status: Acute Assessment and plan: Encourage oral hydration (4) DVT prophylaxis Current Visit: No Status: Acute Assessment and plan: Encourage ambulation. She does not require pharmacological prophylaxis being fully ambulatory. (5) History of Gram positive sepsis Current Visit: Yes Status: Acute Assessment and plan: She is undergoing treatment with Levaquin. We will continue this. No evidence of sepsis at present time. There was concern that she is manipulating her port in situ with a fluid allow for contamination. There is suspicion of possible secondary gain from repeated admissions to the hospital. For this reason we consulted psychiatry. I have discussed the case with the psychiatrist and he does not believe it is very likely that the patient is doing anything on purpose to cause contamination of her port. She does not have any prior history of abuse, no psychiatric history, no history of personality disorder, no history of suicidal attempts altogether making it less likely for her to suffer for Munchhausen syndrome to the extent where she would voluntarily cause ports contamination and sepsis. - Subjective Interval history: She reports mild to moderate abdominal pain diffuse, associated with nausea. She has not been able to take small amounts of oral liquid intake. Denies fevers chills diarrhea and rectal bleeding. - Constitutional Vitals: Temp Pulse Resp BP Pulse Ox 98.6 F 103 16 119/72 96 05/05/17 14:00 05/05/17 14:00 05/05/17 14:00 05/05/17 14:00 05/05/17 14:00 General appearance: Present: A&O X 3, pleasant, no acute distress - Respiratory Respiratory exam: Present: CTAB. Absent: accessory muscle use, rales, rhonchi, wheezes - Cardiovascular Cardiovascular exam: Present: RRR, +S1, +S2. Absent: diastolic murmur, gallop, rubs, systolic murmur - GI/Abdominal GI/Abdominal exam: Present: normal bowel sounds, soft, no peritoneal signs. Absent: distended, tenderness - Extremities Exam Extremities exam: Present: warm, radial pulses palpable and symetrical. Absent : calf tenderness, cyanotic, pedal edema - Skin Skin exam: Present: dry, intact Internal Medicine: Result - Labs CBC & Chem 7: 05/05/17 03:35 05/05/17 15:50 Labs: Short CBC 05/04/17 05/04/17 05/05/17 Range/Units 17:30 23:10 03:35 WBC 10.8 D (4.3-11.1) K/mcL Hgb 8.6 L 8.4 L 8.6 L (11.5-15.4) g/dL Hct 27.5 L 26.8 L 26.9 L (35.3-44.9) % Plt Count 273 (140-400) K/mcL Neutrophils # 9.3 H (1.6-8.9) K/mcL BMP 05/05/17 05/05/17 03:35 15:50 Sodium 140 Potassium 2.7 L 3.0 L Chloride 107 Carbon Dioxide 24 BUN 10 Creatinine 0.69 Glucose 133 H Calcium 9.1 Liver Function 05/05/17 Range/Units 03:35 Total Bilirubin 0.4 (0.2-1.2) mg/dL AST 13 (5-34) Units/L ALT 14 (0-55) Units/L Alkaline Phosphatase 64 (38-126) Units/L Albumin 2.6 L (3.5-5.0) g/dL - ABG Interpretation ABG results: PT/INR, D-dimer PT 12.0 Seconds (9.4-12.1) 05/03/17 13:08 - VTE Documentation of Mechanical Device: Intermittent pneumatic compression device Consult Discharge Plan - Plan Referrals: Theresa Hebert DO [Resident] - 05/12/17 10:00 am
[2017-05-06] MEDS: *HR* OxyCODONE Immed Rel 5 MG TABLET PO PRN ×3 (03:37→15:07)
[2017-05-06 03:48] LABS: BUN/Creatinine Ratio 24 (6-26); Blood Urea Nitrogen 14 mg/dL (7-20); Carbon Dioxide 23 mEq/L (19-29); Chloride 111 mEq/L (98-109); Glucose 79 mg/dL (70-99); Magnesium 2.1 mg/dL (1.6-2.6); Osmolality,Calculated 295 (280-300); Potassium 3.5 mEq/L (3.5-4.5); Sodium 143 mEq/L (136-145); eGFR For African Americans > 60 (> 60); eGFR For Non-African Americans > 60 (> 60)
[2017-05-06 03:52] LABS: Phosphorous 3.7 mg/dL (2.3-4.7)
[2017-05-06] MEDS: Pantoprazole 40 MG VIAL IVP SCH (05:35)
[2017-05-06] MEDS ORDERED: Cosyntropin 250 MCG/2 ML VIAL IVP ONE (08:00)
[2017-05-06] MEDS: Levofloxacin 750 MG/150 ML 750 MG/150 ML BAG IVPB SCH (10:12)
[2017-05-06 14:11] VITALS: BP 123/82
[2017-05-06] MEDS: *HR* Promethazine 25 MG/ML VIAL IVP PRN (15:08)
[2017-05-06] MEDS ORDERED: Iron Sucrose Complex 200 MG in 0.9 % Sodium Chloride 100 ML IVPB ONE (16:08)
--- NOTE | 2017-05-06 16:43 | Discharge Summary ---
Date of Encounter: 05/06/17 Time of Encounter: 16:33 - Discharge Diagnosis (1) Crohns disease Priority: Secondary Status: Chronic Qualifiers: Gastrointestinal tract location: small and large intestine Digestive disease complication type: without complication Qualified Code(s): K50.80 - Crohn's disease of both small and large intestine without complications (2) Hypokalemia Priority: Secondary Status: Acute (3) Dehydration Priority: Secondary Status: Acute (4) DVT prophylaxis Priority: Secondary Status: Acute (5) History of Gram positive sepsis Priority: Secondary Status: Acute (6) On total parenteral nutrition (TPN) Priority: Secondary Status: Acute (7) Iron deficiency anemia Priority: Secondary Status: Acute Qualifiers: Iron deficiency anemia type: inadequate dietary iron intake Qualified Code( s): D50.8 - Other iron deficiency anemias - Discharge Medications Prescriptions: Potassium Chloride Elixir [Potassium Chloride] 20 meq PO DAILY #30 mls Home Medications: Levothyroxine [Synthroid] 75 mcg PO DAILY 08/04/15 [History] Mesalamine [Lialda] 2.4 gm PO DAILY 09/30/15 [History] Ondansetron ODT [Zofran ODT] 4 mg SL Q6HR PRN 08/11/16 [History] Albuterol Sulfate [Albuterol Inhaler] 2 puff IH Q6H PRN 09/28/16 [History] Promethazine HCl [Phenergan] 25 mg IV Q6HR PRN 12/05/16 [History] Vedolizumab [Entyvio (For Outpatient Infusion)] 300 mg IV Q8W 12/05/16 [History] DiphenhydraMINE [Benadryl] 50 mg IV Q4HR PRN 02/28/17 [History] OxyCODONE Immed Rel [Roxicodone 5 MG] 10 mg PO Q4H PRN 7 Days 03/04/17 [Rx] Budesonide [Entocort EC] 9 mg PO DAILY 05/03/17 [History] Levaquin 750 mg IV DAILY #5 05/06/17 [Rx] Potassium Chloride Elixir [Potassium Chloride] 20 meq PO DAILY #30 mls 05/06/17 [Rx] Allergies/Adverse Reactions: Allergies Iodinated Contrast- Oral and IV Dye [Iodinated Contrast Media - IV Dye] Allergy (Verified 04/05/17 13:00) Difficulty Breathing ketorolac [From Toradol] Allergy (Verified 04/05/17 13:00) Difficulty Breathing metoprolol [From Lopressor] Allergy (Verified 04/05/17 13:00) Difficulty Breathing morphine Allergy (Verified 04/05/17 13:00) Difficulty Breathing vancomycin Allergy (Verified 04/05/17 13:00) Rash Melyssa rash at beginning of infusion. adalimumab [From Humira] Adverse Reaction (Verified 04/05/17 13:00) Seizure Procedures/tests Complete & Pending: Procedures Performed prior 72 hours Category Date Time Status VQ Scan [NM pul vent and perfuse] [NM] Stat Exams 05/03/17 20:44 Completed Venous Doppler [EV venous imaging UE LT] Stat Y 05/06/17 10:05 Completed Date of admission: 05/03/17 17:14 Primary care physician: Jose David Hebert DO Consults: 05/03/17 18:03 Consult to Gastroenterology [CONS] Routine Consulting Provider: Gastroenterology [place] Reason for Consult: crohn's with acute anemia, suspected GI bleed. Hgb 6.2 Call Completed: No Consult to Nutrition [CONS] Routine Comment: Consulting Provider: NUTRITION Reason for Dietary Consult: TPN Start and Manage 05/04/17 18:00 Consult to Psychiatry [CONS] Routine Consulting Provider: Psychiatry [place] Reason for Consult: Concern for secondary gain for which she is causing harm to her self. Would like input. Call Completed: Yes - Patient Status Disposition: Home Health Service Condition: Good Functional capacity at discharge: independent ambulation Overall status at discharge: patient is progressing back to baseline - Discharge Instructions Instructions: Anemia (GEN) Follow Up With: Theresa Hebert DO [Resident] - 05/12/17 10:00 am - Diet and Activity Activity: increase activity as tolerated Diet: advance to your usual diet, other (Full liquid diet) Hospital course: Ms. Baltazar is a 31 year old female with past medical history significant for Crohn's disease and chronic malnutrition requiring long-term TPN complicated by recurrent episodes of line infection and sepsis who presented to the hospital due to weakness and anemia. She was admitted to the medical service. She was treated with blood transfusion. Her hemoglobin responded appropriately. Notably the patient was recently diagnosed with left upper extremity DVT involving the brachial axillary and subclavian veins and started on anticoagulation with Lovenox. During this hospitalization anticoagulation was put on hold. 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 Due to the chronicity of this clot and small clot burden and high risk of bleeding and severe anemia with continuing anticoagulation I recommend stopping the anticoagulation at this time. Patient received IV iron to treat iron deficiency anemia and currently her hemoglobin has been stable for the last 2 days. Pain is controlled with oral medication. She will be discharged home with close follow-up with PCP. - Time Spent with Patient Total time spent providing and/or coordinating discharge services: Greater than 30 minutes - Constitutional Vitals: Temp Pulse Resp BP Pulse Ox 97.9 F 96 16 123/82 100 05/06/17 14:05/06/17 14:05/06/17 14:05/06/17 14:05/06/17 14:09 General appearance: Present: A&O X 3, pleasant, no acute distress - Respiratory Respiratory exam: Present: CTAB. Absent: accessory muscle use, rales, rhonchi, wheezes - Cardiovascular Cardiovascular exam: Present: RRR, +S1, +S2. Absent: diastolic murmur, gallop, rubs, systolic murmur - GI/Abdominal GI/Abdominal exam: Present: normal bowel sounds, soft, no peritoneal signs. Absent: distended, tenderness - Extremities Exam Extremities exam: Present: warm, radial pulses palpable and symetrical. Absent : calf tenderness, cyanotic, pedal edema - VTE Documentation of Mechanical Device: Intermittent pneumatic compression device
--- NOTE | 2017-05-06 17:51 | Venous Imaging Report ---
UE Venous Duplex Patient Name:Dayami Baltazar Order Number:[id number] Procedure Date:05/06/2017 Date:1985Age:31 yrs Gender:Female Location:[facility] Room #: [id number] Merchandise Distributor:Matilda Hernandez RVT, RDCS Referring MD:Altaf Lock MD liquefaction plant operator:None Reading MD:Almas Patel MD Primary Indications:R/O DVT Secondary Indications: Risk Factors Yes/No Hx of DVT Yes Anticoagulants Yes Impressions: Upper extremity abnormal deep exam: left Brachial vein chronic thrombosis. Recommendations: After imaging the patient returned to their room. Test completed on 05/06/2017 at 4:24:00 pm. Critical findings reported to Dr. Lock by phone at 4:24:15 pm on 05/06/2017 by Matilda Hernandez RVT, RDCS. Findings Venous Duplex Results: Right: Venous imaging of the upper extremity reveals full patency and normal vessel compressibility of the right subclavian. Doppler signals in the evaluated veins were normal. Left: Venous imaging of the upper extremity reveals full patency and normal vessel compressibility of the left jugular, left subclavian, left axillary, left cephalic, left basilic, left radial and left ulnar. Doppler signals in the evaluated veins were normal. There is a chronic partially occlusive thrombus seen in the left brachial. It demonstrates a partially compressible vein. Flow was phasic and it did augment. Prior Study: No prior studies available at our site for comparision DVT on LT arm reported from another facility. Upper Extremity Venous Duplex Side Vein Compress Spontaneous Flow Augment Left Jugular Normal Yes Phasic Yes Left Subclavian Normal Yes Phasic Yes Left Axillary Normal Yes Phasic Yes Left Brachial Partial Yes Phasic Yes Left Cephalic Normal Yes Phasic Yes Left Basilic Normal Yes Phasic Yes Left Radial Normal Yes Phasic Yes Left Ulnar Normal Yes Phasic Yes Right Subclavian Normal Yes Phasic Yes Updated by Almas Patel MD on 05/06/2017 5:44:57 PM electronically signed on 05/06/2017 5:45:19 PM with status of Final
[2017-05-10 06:58] LABS: Acinetobacter baumannii by PCR Not Detected (Not Detect); Candida albicans by PCR ***DETECTED*** (Not Detect); Candida glabrata by PCR Not Detected (Not Detect); Candida krusei by PCR Not Detected (Not Detect); Candida parapsilosis by PCR Not Detected (Not Detect); Candida tropicalis by PCR Not Detected (Not Detect); Enterococcus by PCR Not Detected (Not Detect); Escherichia coli by PCR Not Detected (Not Detect); Klebsiella oxytoca by PCR Not Detected (Not Detect); Klebsiella pneumoniae by PCR Not Detected (Not Detect); Pseudomonas aeruginosa by PCR Not Detected (Not Detect); Serratia marcescens by PCR Not Detected (Not Detect); Staphylococcus aureus by PCR Not Detected (Not Detect); Streptococcus agalactiae(B)PCR Not Detected (Not Detect); Streptococcus by PCR Not Detected (Not Detect); Streptococcus pneumoniae PCR Not Detected (Not Detect); Streptococcus pyogenes (A) PCR Not Detected (Not Detect); blaKPC Carbapenem-Resist Gene Not Detected (Not Detect); mecA Methicillin-Resist Gene Not Detected (Not Detect); vanA/B Vancomycin-Resist Genes Not Detected (Not Detect)
--- NOTE | 2017-05-13 07:56 | Event Note ---
Date of Encounter: 05/12/17 Time of Encounter: 15:00 I have received a critical result reporting yeast and a blood culturedrawn on May 03. Preliminary ID ssuggests Tarah. I have called the patient and left a message for her to call me back. I called the ID physician and discussed the case with him, he rec IV antifungals and further cultures. I have called the patient's PCP who advised that she will call the practice administrator. Aline, the practice administrator called me back and advised me that she spoke to Dayami. Reportedly the patient told a practice administrator that she would come back to the hospital as soon as she gets a ride. I called bed management to arrange for her direct admission to . I have informed the night time physician of the direct admission to our service.
== END 2017-05-06 17:55 | disposition home health service (06) ==
LOC: EMEROO 12:30 → 3ANU 12:30 → SUATTDRO 17:14 → 3ANU 17:27
PROVIDERS: ADMIT Internal Medicine; ATTEND Internal Medicine